=== PATIENT | female | born 1960 | race Caucasian/White ===

== ENCOUNTER 2016-11-05 19:29 | Emergency (ER) | payer OTHER ==
[~2016-11-05] VITALS: Ht 162.5 cm; Wt 83.9 kg
[~2016-11-05 19:29] MED LIST: ADVIL,MOTRIN,R200 MG PO; ANAPROX DS550 MG PO; ASPIR 8181 MG PO; ASPIR-LOW81 MG PO; ATIVAN2 MG PO; AUGMENTIN 875 M1 TAB PO; BACTRIM DS 8001 TA1 PO; BACTROBAN OINT22 GM PO; BUSPAR5 MG PO; CARBAMAZEPINE400 MG PO; CEPHULAC10 GM/15 M PO; CLONAZEPAM1 M1 PO; COLACE100 MG PO; COUMADIN10 M1 PO; DICLOFENAC SOD100 G1 T; DIFLUCAN150 MG PO; DITROPAN XL15 MG PO; DITROPAN5 MG PO; EFFEXOR XR75 M1 PO; EFFEXOR75 MG PO; FLONASE0.05 MG/AC NS; GEODON80 MG PO; HYDROCODONE BIT1 T11 PO; KEFLEX500 MG PO; KLONOPIN1 MG PO; KLONOPIN2 MG PO; LAMICTAL100 MG PO; LAMICTAL25 MG PO; LIPITOR40 MG PO; MIRALAX17 GM/DOSE PO; MOTRIN800 MG PO; Motrin,Rufen800 MG PO; NICODERM C21 MG/242 TD; NORCO 325 MG-51 TAB PO; OXYBUTYNIN10 MG PO; PANTOPRAZOLE40 M1 PO; PRENATAL1 TA6 PO; PRILOSEC20 MG PO; SEPTRA DS 800 M1 TAB PO; SYNTHROID0.025 MG PO; TEGRETOL PO; TEGRETOL-XR400 MG PO; TEGRETOL100 MG PO; TEGRETOL200 MG PO; TRAMADOL HCL50 MG PO; ULTRAM50 MG PO; VICODIN 5/500 505 MG PO; VISTARIL50 MG PO; VITAMIN B121000 MC2 PO; VITAMIN B1225 MCG PO; VOLTAREN50 M1 PO; Vicodin 5/500 505 MG PO; ZANTAC150 MG PO; ZOFRAN4 MG PO
[2016-11-05 21:05] LABS: BASO % 0.5 % (0.0-1.0); EOS # 0.2 10*3/uL (0.0-0.4); EOS % 3.3 % (1.0-4.0); HEMATOCRIT 45.7 % (37.0-47.0); HEMOGLOBIN 15.5 g/dl (12.0-16.0); LYMPH # 1.8 10*3/uL (1.3-4.4); LYMPH % 31.4 % (27.0-41.0); MEAN CELL VOLUME 91.4 fl (81.0-99.0); MEAN CORPUSCULAR HGB CONC 33.9 g/dl (33.0-37.0); MEAN PLATELET VOLUME 8.2 fl (9.6-12.3); MONO # 0.8 10*3/uL (0.1-1.0); MONO % 13.4 % (3.0-9.0); NEUT # 2.9 10*3/uL (2.3-7.9); NEUT % 51.1 % (47.0-73.0); PLATELET COUNT AUTOMATED 367 10*3/uL (130-400); RED CELL DISTRI WIDTH 14.3 % (0-14.5); WHITE BLOOD COUNT 5.7 10*3/uL (4.8-10.8)
[2016-11-05 21:21] LABS: ALBUMIN 3.3 gm/dl (3.1-4.5); ALKALINE PHOSPHATASE 102 U/L (45-117); BILIRUBIN, TOTAL 0.2 mg/dl (0.2-1.0); BUN 13 mg/dl (7-24); CARBON DIOXIDE 29 mmol/L (21-32); CHLORIDE 105 mmol/L (98-107); EST GLOM FILT AFRICAN AMERICAN > 60 ml/min; GLUCOSE 90 mg/dL (65-99); POTASSIUM 3.9 mmol/L (3.5-5.1); SGOT/AST 16 IU/L (3-35); SGPT/ALT 16 U/L (12-78); SODIUM 143 mmol/L (136-145); TOTAL PROTEIN 6.5 gm/dL (6.4-8.2)
[2016-11-05] MEDS ORDERED: CEPHALEXIN500 M1 PO (21:33)
[2016-11-05] MEDS ORDERED: BACITRACIN500 U/G1 TP (21:33)
== END 2016-11-05 22:54 | disposition home or self-care (01) ==
LOC: ED 19:29
PROVIDERS: Nurse Practitioner Family
DX: Z48.01 Encounter for change or removal of surgical wound dressing (principal); M19.90 Unspecified osteoarthritis, unspecified site; F41.9 Anxiety disorder, unspecified; F17.200 Nicotine dependence, unspecified, uncomplicated; Z79.899 Other long term (current) drug therapy; Z86.73 Personal history of transient ischemic attack (TIA), and cerebral infarction without residual deficits

== ENCOUNTER 2016-12-30 10:36 | Emergency (ER) | payer OTHER ==
[~2016-12-30] VITALS: Ht 162.5 cm; Wt 83.9 kg
[~2016-12-30 10:36] MED LIST changes: +BACITRACIN500 U/G1 TP; +CEPHALEXIN500 M1 PO
[2016-12-30] MEDS ORDERED: Motrin,Rufen800 MG PO (15:02)
== END 2016-12-30 14:41 | disposition home or self-care (01) ==
LOC: ED 10:36
DX: S40.011A Contusion of right shoulder, initial encounter (principal); M25.551 Pain in right hip; M25.571 Pain in right ankle and joints of right foot; F17.200 Nicotine dependence, unspecified, uncomplicated; Z79.899 Other long term (current) drug therapy; W10.8XXA Fall (on) (from) other stairs and steps, initial encounter; Y93.89 Activity, other specified; Y92.811 Bus as the place of occurrence of the external cause; Y99.8 Other external cause status

== ENCOUNTER → 2017-01-19 | Outpatient (CLI) | payer OTHER | END | disposition home or self-care (01) | LOC: RESCLI 02:36 | DX: M17.12 Unilateral primary osteoarthritis, left knee (principal); E03.9 Hypothyroidism, unspecified; F17.200 Nicotine dependence, unspecified, uncomplicated; F32.9 Major depressive disorder, single episode, unspecified; K21.9 Gastro-esophageal reflux disease without esophagitis; F41.9 Anxiety disorder, unspecified; Z86.39 Personal history of other endocrine, nutritional and metabolic disease ==

== ENCOUNTER → 2017-01-26 | Outpatient (CLI) | payer OTHER | END | disposition home or self-care (01) | LOC: RESCLI 04:14 | DX: M17.12 Unilateral primary osteoarthritis, left knee (principal); F17.200 Nicotine dependence, unspecified, uncomplicated; E03.9 Hypothyroidism, unspecified; F33.40 Major depressive disorder, recurrent, in remission, unspecified; E55.9 Vitamin D deficiency, unspecified; F41.9 Anxiety disorder, unspecified; K21.9 Gastro-esophageal reflux disease without esophagitis; Z86.39 Personal history of other endocrine, nutritional and metabolic disease ==

== ENCOUNTER → 2017-02-16 | Outpatient (CLI) | payer OTHER | END | disposition home or self-care (01) | LOC: CANPRECLI → ORTHO 02:45 → RAD 14:16 | DX: M17.12 Unilateral primary osteoarthritis, left knee (principal) ==

== ENCOUNTER → 2017-02-18 | Outpatient (CLI) | payer OTHER | END | disposition home or self-care (01) | LOC: US 02:54 | DX: I65.23 Occlusion and stenosis of bilateral carotid arteries (principal); I10 Essential (primary) hypertension ==

== ENCOUNTER 2017-03-30 13:46 | Emergency (ER) | payer OTHER ==
[~2017-03-30] VITALS: Ht 167.6 cm; Wt 74.8 kg
[2017-03-30 14:07] LABS: BASO # 0.1 10*3/uL (0.0-0.1); BASO % 0.7 % (0.0-1.0); EOS # 0.1 10*3/uL (0.0-0.4); EOS % 1.5 % (1.0-4.0); HEMOGLOBIN 16.4 g/dl (12.0-16.0); LYMPH # 2.6 10*3/uL (1.3-4.4); LYMPH % 29.9 % (27.0-41.0); MEAN CELL VOLUME 90.7 fl (81.0-99.0); MEAN CORPUSCULAR HGB 30.4 pg (27.0-31.0); MEAN CORPUSCULAR HGB CONC 33.5 g/dl (33.0-37.0); MEAN PLATELET VOLUME 8.7 fl (9.6-12.3); MONO # 0.8 10*3/uL (0.1-1.0); NEUT % 58.5 % (47.0-73.0); PLATELET COUNT AUTOMATED 461 10*3/uL (130-400); RED CELL DISTRI WIDTH 13.7 % (0-14.5); WHITE BLOOD COUNT 8.6 10*3/uL (4.8-10.8)
[2017-03-30 14:15] LABS: ACT PARTIAL THROMBO TIME 26.2 SECONDS (20.8-31.5)
[2017-03-30 14:29] LABS: ALBUMIN 3.4 gm/dl (3.1-4.5); ALKALINE PHOSPHATASE 123 U/L (45-117); BUN 6 mg/dl (7-24); CHLORIDE 102 mmol/L (98-107); POTASSIUM 4.4 mmol/L (3.5-5.1); SGOT/AST 20 IU/L (3-35); SGPT/ALT 15 U/L (12-78); SODIUM 136 mmol/L (136-145); TOTAL PROTEIN 7.8 gm/dL (6.4-8.2)
[2017-03-30 14:34] LABS: TROPONIN I < 0.015 ng/ml (<0.045)
== END 2017-03-30 15:34 | disposition left against medical advice (07) ==
LOC: ED 13:46
PROVIDERS: Emergency Medicine
DX: R07.9 Chest pain, unspecified (principal); F41.8 Other specified anxiety disorders; M19.90 Unspecified osteoarthritis, unspecified site; Z86.73 Personal history of transient ischemic attack (TIA), and cerebral infarction without residual deficits; Z98.890 Other specified postprocedural states; Z79.899 Other long term (current) drug therapy

== ENCOUNTER 2017-04-20 11:17 | Inpatient (IN) | payer OTHER ==
[~2017-04-20] VITALS: Ht 162.5 cm; Wt 92.7 kg
--- NOTE | ~2017-04-20 | PR ---
[place], [place] [facility]GR[id number] #: [id number] ROOM: 402 DOCTOR: DARIANA BRICE MD,LEXUS BIRTHDATE: [birth year] DOS: 04/22/2017 PULMONARY PROGRESS NOTE SUBJECTIVE: She has been noted much better today. Reduction of respiratory symptom noted and would like to be discharged home. OBJECTIVE: VITAL SIGNS: For the patient, which have been recorded showed normal temperature, respiratory rate 20, heart rate 77, blood pressure 116/64, pulse ox saturation was noted as 92% on room air. HEENT: Examination showed no acute change. NECK: Supple. CARDIOVASCULAR: S1, S2 is audible. LUNGS: The patient was noted without any wheeze or crackles at the present time. ABDOMEN: Soft and nontender. EXTREMITIES: Show no edema. IMPRESSION: 1. The patient with resolving acute hypoxic respiratory failure with exacerbation of chronic obstructive pulmonary disease, heavy nicotine dependence. Refused to use any kind of inhaler for now and for later on, complaining of anxiety. However, the patient was taking the nebulized bronchodilator without any issues. 2. History of bipolar disorder psychiatric illness. PLAN OF TREATMENT: Recommendation of tobacco cessation. Assessment for the home oxygen before discharge would be considered. The patient could be discharged home today on tapering dose of prednisone and antibiotics. LEXUS WESTBROOK MD CM:PNTRANS [id number] LEXUS BRICE MD 04/28/17 0857 interface
--- NOTE | ~2017-04-20 | CON ---
[place], [place] REPORT OF CONSULTATION NAME: SHAQ GERBER [facility] #: [id number] UNIT #: [id number] ROOM: 402 DOCTOR: LEXUS MITTAL MD BIRTHDATE: [birth year] DOS: 04/21/2017 CONSULTATION REQUESTED BY: Hospitalist services. REASON FOR CONSULTATION: Assess the patient with acute hypoxic respiratory failure. HISTORY OF PRESENT ILLNESS: A 56-year-old white female who has been seen in the resident clinic yesterday. The patient was noted with pulse oxygen saturation of 83% upon assessment. The patient reported symptoms of having progressive cough, which has been noted, gradually worsened. She was advised to go to the Emergency Room. She was assessed in the Emergency Room and asked for hospitalization. The patient was admitted to the hospital at this time, but I would like to be discharged home as soon as possible. The shortness of breath was described with exertion. She was also noted with some wheezing as well. Denies symptoms of chest pain or hemoptysis. Respiratory symptom, cough has been present for the past few days without any sputum expectoration. REVIEW OF SYSTEMS: CONSTITUTIONAL: Denies fatigue and tiredness, fever or chills. EYES: Denies any burning, redness, or tenderness. EARS, NOSE, THROAT SYMPTOMS: No sore throat, hoarseness, otalgia, or postnasal drainage. CARDIOVASCULAR: Denies anginal pain, edema or pain of the lower extremities. GASTROINTESTINAL: Denies dysphagia, nausea, vomiting, diarrhea, abdominal pain, hematemesis, melena, hematochezia, abnormal weight loss. GENITOURINARY: Denies dysuria, suprapubic pain, hematuria. SKIN: Denies lesions or rashes. MUSCULOSKELETAL: Denies acute joint pain, redness, or tenderness. CENTRAL NERVOUS SYSTEM: Denies dizziness, headache, diplopia or syncopal episodes. Remaining systems were reviewed with the patient, they were noted all negative. PAST MEDICAL HISTORY: 1. History of agoraphobia with panic attacks. 2. Bipolar depression. 3. Bipolar disorder. 4. Anxiety disorder. 5. Obesity. 6. Nicotine dependence. 7. Gastroesophageal reflux. 8. Hyperlipidemia. 9. Neurogenic bladder. 10. Osteoarthritis. 11. Passive transient ischemic attack without any residual neurologic problem. 12. Vitamin D deficiency. 13. History of hypothyroidism. PAST SURGICAL HISTORY: [place], [place] REPORT OF CONSULTATION NAME: SHAQ GERBER UNIT #: [id number] ROOM: 402 DOCTOR: DARIANA BRICE MD,LEXUS BIRTHDATE: [birth year] 1. Reported as ventral hernia repair. 2. Cholecystectomy. 3. Small bowel resection. SOCIAL HISTORY: The patient has been noted as tobacco user, 2 packs of cigarettes per day. Lives at home. The patient stated that she is . FAMILY HISTORY: The patient's father from complication related to the CA. Mother is living, history of breast cancer. HOME MEDICATIONS: Noted use of BuSpar, Tegretol, Klonopin, vitamin B12, Flonase, hydroxyzine, Lamictal, levothyroxine, Effexor and Oxybutynin. DRUG ALLERGIES: Noted for no known drug allergies. PHYSICAL EXAMINATION: GENERAL: This is a 56-year-old female who has been noted currently awake and alert without any acute distress at this time. VITAL SIGNS: The patient's height was recorded by the nursing staff at the time of admission with height of 5 feet 4 inches, weight of 204 pounds, BMI 35.1. VITAL SIGNS: Normal temperature, respiratory rate 18-20, heart rate 76-71, blood pressure 117/62-114/68. Pulse oxygen saturation noted on 2 liters nasal cannula 93% saturation. HEENT: Edentulous status, moderate obesity. Head was atraumatic with decreased posterior pharyngeal space, high tongue base and crowding of soft tissue structures. NECK: Supple. CARDIOVASCULAR: S1, S2 audible. LUNGS: Noted diffuse reduction in breath sounds bilaterally with diffuse expiratory wheezing without any crackles. ABDOMEN: Soft, obese, nontender. CENTRAL NERVOUS SYSTEM: Cranial nerves 2-12 intact. No focal deficits. MUSCULOSKELETAL: No deformities. SKIN: No lesions or rashes. LABORATORY DATA: CBC 04/20/2017 admission, WBC count 12.9. Remaining CBC were normal. CMP on 06/20, was noted as a sodium 133, rest of the CMP was normal. Lactic acid yesterday was normal. Arterial blood gas 3.5 liters nasal cannula, pH of 7.38, pCO2 of 47, pO2 of 66.7. CBC of 04/21 were noted as normal. PT/PTT today was normal. CMP this morning, glucose 141. Remaining electrolytes are grossly normal. Chest x-ray, 2-view, which was done for the patient on admission was noted with bronchial wall thickening without any acute pulmonary infiltration. IMPRESSION: 1. The patient will be currently admitted to the hospital noted with acute exacerbation of chronic obstructive pulmonary disease and bronchial asthma combination with acute bronchitis, which has been noted progressive. The patient was also noted acute hypoxic respiratory failure secondary to chronic obstructive pulmonary disease. [place], [place] REPORT OF CONSULTATION NAME: SHAQ GERBER UNIT #: [id number] ROOM: [facility] DOCTOR: DARIANA BRICE MD,LEXUS BIRTHDATE: [birth year] 2. Chronic heavy nicotine dependence. 3. Moderate obesity as well. 4. Chronic hypercarbia was also noted for this patient undiagnosed previously. PLAN OF MANAGEMENT: The patient has been getting the bronchodilators which will be continued form of the nebulizer. Her home medications have been resumed. DVT prophylaxis has been noted ongoing. She was getting Solu-Medrol at high dose 80 mg q.8 hours, which will be decreased for the patient at this time to 40 mg q.8 hours. Monitor respiratory status closely. Collect the sputum for Gram stain and culture and start the patient on Dulera as well. Nicotine abstinence was also encouraged. Other supportive therapy, plan of management and care plan. Additional treatment changes will be made based on progression of the illness. Thanks for allowing me to participate in the care of this patient. LEXUS WESTBROOK MD CM:CONSTR:REPORT OF CONSULTATION 1048 04/28/17 0856 interface
[2017-04-20 11:26] VITALS: BP 152/86
[2017-04-20 12:00] VITALS: BP 112/67
[2017-04-20 12:17] LABS: BASO # 0.1 10*3/uL (0.0-0.1); BASO % 0.4 % (0.0-1.0); EOS # 0.1 10*3/uL (0.0-0.4); EOS % 0.4 % (1.0-4.0); HEMATOCRIT 45.1 % (37.0-47.0); HEMOGLOBIN 15.1 g/dl (12.0-16.0); LYMPH # 1.8 10*3/uL (1.3-4.4); MEAN CELL VOLUME 90.9 fl (81.0-99.0); MEAN CORPUSCULAR HGB 30.4 pg (27.0-31.0); MEAN CORPUSCULAR HGB CONC 33.5 g/dl (33.0-37.0); MEAN PLATELET VOLUME 8.5 fl (9.6-12.3); MONO % 7.5 % (3.0-9.0); NEUT % 77.2 % (47.0-73.0); PLATELET COUNT AUTOMATED 354 10*3/uL (130-400); RED BLOOD COUNT 4.96 10*6/uL (4.10-5.10); RED CELL DISTRI WIDTH 13.7 % (0-14.5); WHITE BLOOD COUNT 12.9 10*3/uL (4.8-10.8)
[2017-04-20 12:31] LABS: ALBUMIN 3.1 gm/dl (3.1-4.5); ALKALINE PHOSPHATASE 113 U/L (45-117); BUN 5 mg/dl (7-24); CHLORIDE 96 mmol/L (98-107); CREATININE 0.62 mg/dL (0.55-1.02); POTASSIUM 4.2 mmol/L (3.5-5.1); SGOT/AST 14 IU/L (3-35); SGPT/ALT 12 U/L (12-78); SODIUM 133 mmol/L (136-145); TOTAL PROTEIN 7.9 gm/dL (6.4-8.2)
--- NOTE | 2017-04-20 12:51 | NUR ---
PULSE OX 78% ON ROOM AIR AFTER WALKING TO THE BATHROOM. NASAL O2 REAPPLIED AT 3L. 93% AT THIS TIME. PT REMAINS ALERT. HANANE CADET
[2017-04-20 13:10] VITALS: BP 112/67; BP 112/68
[2017-04-20 14:11] VITALS: BP 114/65
[2017-04-20 15:53] LABS: ABG BASE EXCESS 2.6 mmol/L (-2.0-2.0); ABG HCO3 27.8 mmol/l (22-26); ABG O2 SATURATION 94.3 % (95-97); ARTERIAL BLOOD GAS PCO2 47.2 mmHg (35-45); ARTERIAL BLOOD GAS PH 7.388 (7.35-7.45); ARTERIAL BLOOD GAS PO2 66.7 mmHg (80-90)
--- NOTE | 2017-04-20 15:59 | NUR ---
NOTIFIED DR. WESTBROOK OF CONSULT. HE WAS MADE AWARE OF PT'S CONDITION, AND RECENT CHANGES. WILL CONINUE TO MONITOR PT.
--- NOTE | 2017-04-20 18:35 | NUR ---
DR. GUTIERRES CALLED ABOUT PT'S WOUND ON BELLY. ORDERS NOW ARE TO PUT A STERILE DRESSING, AND TAPE IT UP. FURTHER CONCERNS SHOULD BE ADDRESSED BY THE NIGHT TEAM ORDERED BY DR. GUTIERRES.
--- NOTE | 2017-04-20 19:53 | NUR ---
FAMILY REFUSED TX. ASKED TO LET PATIENT SLEEP FOR NOW. WILL CHECK BACK ON HER.
[2017-04-20 20:00] VITALS: BP 110/59; BP 114/68
--- NOTE | 2017-04-20 22:16 | NUR ---
24 HR chart check completed.
[2017-04-21] VITALS: BP 109/65
[2017-04-21 02:00] VITALS: BP 110/70
[2017-04-21 03:41] LABS: BILIRUBIN NEGATIVE (NEGATIVE); BLOOD NEGATIVE (NEGATIVE); CLARITY CLEAR (CLEAR); COLOR YELLOW (YELLOW); GLUCOSE NEGATIVE (NEGATIVE); KETONE NEGATIVE (NEGATIVE); LEUKO ESTERASE NEGATIVE (NEGATIVE); NITRITE NEGATIVE (NEGATIVE); PH 6.5 (5.0-9.0); UROBILINOGEN 0.2 E.U./dl (0.2-1.0)
[2017-04-21 03:52] LABS: RBC 0-2 rbc/hpf (0-2)
[2017-04-21 05:56] LABS: BASO % 0.1 % (0.0-1.0); HEMATOCRIT 40.3 % (37.0-47.0); HEMOGLOBIN 13.5 g/dl (12.0-16.0); LYMPH # 0.8 10*3/uL (1.3-4.4); LYMPH % 9.1 % (27.0-41.0); MEAN CELL VOLUME 92.4 fl (81.0-99.0); MEAN CORPUSCULAR HGB CONC 33.5 g/dl (33.0-37.0); MEAN PLATELET VOLUME 8.9 fl (9.6-12.3); MONO # 0.4 10*3/uL (0.1-1.0); MONO % 4.5 % (3.0-9.0); NEUT # 7.4 10*3/uL (2.3-7.9); NEUT % 85.8 % (47.0-73.0); PLATELET COUNT AUTOMATED 374 10*3/uL (130-400); RED BLOOD COUNT 4.36 10*6/uL (4.10-5.10); RED CELL DISTRI WIDTH 13.6 % (0-14.5); WHITE BLOOD COUNT 8.6 10*3/uL (4.8-10.8)
[2017-04-21 06:19] LABS: ACT PARTIAL THROMBO TIME 25.9 SECONDS (20.8-31.5)
[2017-04-21 06:24] LABS: ALBUMIN 2.7 gm/dl (3.1-4.5); BUN 7 mg/dl (7-24); CHLORIDE 103 mmol/L (98-107); CREATININE 0.59 mg/dL (0.55-1.02); PHOSPHOROUS 2.4 mg/dL (2.5-4.9); POTASSIUM 3.6 mmol/L (3.5-5.1); SGOT/AST 10 IU/L (3-35); SGPT/ALT 12 U/L (12-78); SODIUM 140 mmol/L (136-145)
[2017-04-21 06:33] LABS: ALKALINE PHOSPHATASE 106 U/L (45-117); FREE T4 0.89 ng/dl (0.76-1.46); THYROID STIM HORMONE (HS) 0.632 uIU/ml (0.358-4.75)
[2017-04-21 06:41] LABS: VITAMIN D, 25-HYDROXY 36.1 ng/mL (30-100)
[2017-04-21 08:00] VITALS: BP 117/62
--- NOTE | 2017-04-21 09:00 | NUR ---
Regional Education Coordinator in to talk to patient. Patient states lives at home with boyfriend. There are few steps in the home. Physician: lynn fam Pharmacy: [facility] Home health services: none Patient's level of ADLs: INDEPENDENT Patient has working utilities: all working DME: none Follow-up physician's appointment after d/c: will be made by hospitalist nurse director upon discharge Does patient want to access PORTAL?: no Discharge plan discussed with patient, patient lives at home with boyfriend, she is independent in adls and ambulatuon, patient stated she would be going home when able and denies any home needs. ANNA FARR
[2017-04-21 12:00] VITALS: BP 122/67
--- NOTE | 2017-04-21 14:04 | NUR ---
SHAQ GERBER [id number] Please refer to the physician's history and physical for past medical history, comorbid conditions, and allergies. Diagnosis: ACUTE RESPITATORY FAILURE,SEVERE SEPSIS,PNEUMONITI Ken Score: 21,LOW OR NO RISK WOUND DESCRIPTIONS: Location of the wound: LLQ Type of wound: BURN Thickness: Partial Size: 1.2CM X 1.0CM X 0.1CM Tunneling: NONE Undermining: NONE Sinus Tract: NONE Presence of Exudate: Purulent Amount: Light Color: Yellow Odor: None Periwound Skin Appearance: Normal Wound edges: APPROXIMATED Pain (associated with wound): NONE AT TIME OF ASSESSMENT How does patient state this happened? PT STATED THAT IT WAS AN ABSESS AND THEN THERE WAS SCAR TISSUE SHE BURNT THE AREA FROM A CIGARETTE 2-3 YEARS AGO AND IT KEEPS OPENING AND CLOSING BECAUSE OF WHERE IT IS POSITION HER PANTS RUB AGAINST IT SHE STATED THAT SHE WANTED TO FOLLOW UP IN THE WOUND CARE CENTER WHEN DISCHARGE AND THAT TUESDAY WERE GOOD FOR HER. I SPOKE WITH SAMUEL FROM THE WOUND CARE CENTER AND SCHEDULED HER AN APPOINTMENT FOR Tuesday AT 0930. THIS NURSE INFORMED PATIENT ABOUT THE TIME OF THE APPOINTMENT. Surface the patient is resting on: Isoflex SKIN PREVENTION RECOMMENDATION: 1. Pressure redistribution support surface as appropriate 2. Elevate heels 3. Remove boots/TEDS every shift and reapply 4. Head of bed 30 degrees as tolerated 5. Assess nutrition and hydration 6. Manage moisture 7. Avoid the use of containment devices while in bed 8. Use absorptive products on surfaces limit layers of linens on bed 9. Turn and reposition every 1-2 hours in bed and every 1 hour in chair as tolerated 10. Weight shifts every 15 minutes while up in chair 11. Offloading with pillows or device to keep heels elevated off bed 12. Monitor skin at least every shift 13. Inspect under medical devices twice a day WOUND TREATMENT RECOMMENDATIONS: PARTIAL THICKNESS GUIDELINES NSS, SUREPREP, THERAHONEY, OPTIFOAM GENTLE DAILY AND PRN FOR SOILING. SPOKE WITH DR. BLEDSOE REGARDING WOUND CARE RECOMMENDATION.
[2017-04-21 16:00] VITALS: BP 141/83
[2017-04-21 20:00] VITALS: BP 136/82
--- NOTE | 2017-04-21 20:00 | NUR ---
ASSUMED CARE OF PATIENT. ASSESSMENT COMPLETE. RESTING IN BED. VISITOR AT BEDSIDE. NO VOICED COMPLAINTS. CALL LIGHT IN REACH. WILL CONTINUE TO MONITOR.
--- NOTE | 2017-04-21 21:31 | NUR ---
SPUTUM COLLECTED AND SENT TO LAB.
[2017-04-22] VITALS: BP 118/67; BP 148/84
[2017-04-22 06:46] LABS: BASO % 0.3 % (0.0-1.0); HEMOGLOBIN 13.5 g/dl (12.0-16.0); LYMPH # 2.1 10*3/uL (1.3-4.4); LYMPH % 22.7 % (27.0-41.0); MEAN CELL VOLUME 92.3 fl (81.0-99.0); MEAN CORPUSCULAR HGB 30.4 pg (27.0-31.0); MEAN CORPUSCULAR HGB CONC 32.9 g/dl (33.0-37.0); MEAN PLATELET VOLUME 8.8 fl (9.6-12.3); MONO # 0.7 10*3/uL (0.1-1.0); MONO % 7.6 % (3.0-9.0); NEUT # 6.4 10*3/uL (2.3-7.9); NEUT % 68.5 % (47.0-73.0); PLATELET COUNT AUTOMATED 442 10*3/uL (130-400); RED BLOOD COUNT 4.44 10*6/uL (4.10-5.10); RED CELL DISTRI WIDTH 13.7 % (0-14.5); WHITE BLOOD COUNT 9.4 10*3/uL (4.8-10.8)
[2017-04-22 06:55] LABS: ALBUMIN 2.7 gm/dl (3.1-4.5); BUN 10 mg/dl (7-24); CHLORIDE 100 mmol/L (98-107); SGPT/ALT 13 U/L (12-78); SODIUM 137 mmol/L (136-145)
[2017-04-22 06:58] LABS: ALKALINE PHOSPHATASE 100 U/L (45-117); CREATININE 0.55 mg/dL (0.55-1.02); SGOT/AST 8 IU/L (3-35); TOTAL PROTEIN 7.3 gm/dL (6.4-8.2)
[2017-04-22 08:00] VITALS: BP 116/64
--- NOTE | 2017-04-22 09:00 | NUR ---
case management visits with patient, patient denies any home needs
[2017-04-22] MEDS ORDERED: NATURE'S BLEND F1 MG PO (11:57)
[2017-04-22] MEDS ORDERED: PREDNISONE10 MG PO (11:57)
[2017-04-22] MEDS ORDERED: LEVAQUIN500 M2 PO (11:57)
[2017-04-22 12:00] VITALS: BP 112/68
--- NOTE | 2017-04-22 12:23 | NUR ---
PT REFUSED HOME OXYGEN EVALUATION ORDERED BY DR. WESTBROOK. DR. WESTBROOK NOTIFIED. PT ADAMANT THAT SHE DAY NOT NEED OXYGEN AT HOME.
--- NOTE | 2017-04-22 12:25 | NUR ---
pt had order for home oxygen. she refused to do the walk. she stated that she never had it before and she does not want it now. rn notified
--- NOTE | 2017-04-22 13:04 | NUR ---
PT REFUSING DISCHARGE PHOTO.
--- NOTE | 2017-04-22 13:05 | NUR ---
Discharge instructions reviewed with patient/family. Patient receptive and verbalizes understanding. Follow-up care arranged. Written instructions given to patient/family. MARGARITA OSMAN
[2017-04-27] MEDS ORDERED: PROAIR HFA8.5 GM INH (09:28)
== END 2017-04-22 13:05 | disposition home or self-care (01) | DRG 871 ==
LOC: ED 11:17 → EDHOLD 13:30 → 4E 13:30
PROVIDERS: Emergency Medicine; Internal Medicine; Nurse Practitioner; ADMIT Internal Medicine
DX: A41.9 Sepsis, unspecified organism (principal); J18.9 Pneumonia, unspecified organism; J96.01 Acute respiratory failure with hypoxia; J96.02 Acute respiratory failure with hypercapnia; J44.1 Chronic obstructive pulmonary disease with (acute) exacerbation; J44.0 Chronic obstructive pulmonary disease with (acute) lower respiratory infection; E87.1 Hypo-osmolality and hyponatremia; R65.20 Severe sepsis without septic shock; E87.8 Other disorders of electrolyte and fluid balance, not elsewhere classified; E66.9 Obesity, unspecified; E03.9 Hypothyroidism, unspecified; J20.9 Acute bronchitis, unspecified; R73.9 Hyperglycemia, unspecified; M47.815 Spondylosis without myelopathy or radiculopathy, thoracolumbar region; N31.9 Neuromuscular dysfunction of bladder, unspecified; F17.210 Nicotine dependence, cigarettes, uncomplicated; E78.5 Hyperlipidemia, unspecified; F31.9 Bipolar disorder, unspecified; F40.01 Agoraphobia with panic disorder; Z53.29 Procedure and treatment not carried out because of patient's decision for other reasons; K21.9 Gastro-esophageal reflux disease without esophagitis; Z80.9 Family history of malignant neoplasm, unspecified; Z71.6 Tobacco abuse counseling; Z86.73 Personal history of transient ischemic attack (TIA), and cerebral infarction without residual deficits; Z90.49 Acquired absence of other specified parts of digestive tract; Z82.49 Family history of ischemic heart disease and other diseases of the circulatory system; Z79.899 Other long term (current) drug therapy; Z80.3 Family history of malignant neoplasm of breast; Z68.35 Body mass index [BMI] 35.0-35.9, adult

== ENCOUNTER 2017-04-23 03:46 | Inpatient (IN) | payer OTHER ==
[2017-04-23] VITALS (9 sets, daily range): BP systolic 92–147; BP diastolic 58–85
[~2017-04-23] VITALS: Ht 162.5 cm; Wt 93.7 kg
--- NOTE | ~2017-04-23 | EKG ---
[place], [place] ELECTROCARDIOGRAM REPORT NAME: SHAQ GERBER UNIT #: [id number] ROOM: 510 DOCTOR: DARIANA BRICE MD,LEXUS BIRTHDATE: [birth year] DOS: 04/23/2017 TIME: 4:12 a.m. The electrocardiogram, patient shows normal sinus rhythm, heart rate of 88 beats per minute. Nonspecific ST-T changes were noted. LEXUS WESTBROOK MD CM:EKGRPT:ELECTROCARDIOGRAM REPORT 1118 [id number] LEXUS BRICE MD
--- NOTE | ~2017-04-23 | PR ---
[place], [place] PROGRESS NOTE [id number] #: [id number] ROOM: 510 DOCTOR: DARIANA BRICE MD,LEXUS BIRTHDATE: [birth year] DOS: 04/26/2017 SUBJECTIVE: She has been noted comfortable with reduction of respiratory symptoms. Noted resolution in nasal congestion, which were described by the patient yesterday. OBJECTIVE: VITAL SIGNS: Normal temperature, respiratory rate 18, heart rate 79, blood pressure 148/86. The pulse oxygen saturation on 2 liters nasal cannula 99% saturation. HEENT: Shows chronic obesity. NECK: Supple. CARDIOVASCULAR: S1, S2 audible. LUNGS: The patient was noted without any wheezing or crackles at the present time. Breath sounds noted mildly decreased bilaterally. ABDOMEN: Soft, nontender. IMPRESSION: Progressive resolution of acute exacerbation of chronic obstructive pulmonary disease, acute hypoxic respiratory failure at the present time. PLAN OF TREATMENT: The patient could be considered discharge home on tapering dose of prednisone or antibiotic, Nicotrol inhaler for patient ____ tobacco cessation. She should also be discharged on short-acting bronchodilators and medications such as Dulera. LEXUS WESTBROOK MD CM:HARRISON [id number] LEXUS BRICE MD 04/26/17 1448 interface
--- NOTE | ~2017-04-23 | PR ---
[place], [place] PROGRESS NOTE [id number] #: [id number] ROOM: 510 DOCTOR: DARIANA BRICE MD,LEXUS BIRTHDATE: [birth year] DOS: 04/24/2017 SUBJECTIVE: She has been comfortably resting on the bed. Partial reduction of respiratory symptoms of cough, wheezing, and shortness of breath noted. Denies symptoms of hemoptysis. OBJECTIVE: VITAL SIGNS: Normal temperature, respiratory rate 20, heart rate 82, blood pressure 154/84. Pulse oxygen saturation on 2.5 L nasal cannula 95% saturation. HEENT: Examination shows no new change. NECK: Supple. CARDIOVASCULAR: S1, S2 audible. LUNGS: Moderate expiratory wheezing, remains the same as yesterday. ABDOMEN: Soft and obese. EXTREMITIES: Showed no edema. LABORATORY DATA: Culture of the sputum from 04/21/2017 of last admission was noted as no bacterial growth. CBC this morning, normal. BMP this morning was essentially noted normal. IMPRESSION: 1. Acute exacerbation of chronic obstructive pulmonary disease/bronchial asthma and acute tracheobronchitis, currently responding to treatment very slowly. 2. Chronic obesity. 3. History of nicotine dependence. PLAN OF TREATMENT: Continuation of the bronchodilators, oxygen supplementation, and corticosteroids at same dose. No change in treatment at this time will be necessary. Continue other medical management. Nicotrol inhaler to overcome nicotine withdrawal symptoms, p.r.n. use. LEXUS WESTBROOK MD CM:PNTRANS [id number] LEXUS BRICE MD 04/25/17 0514 interface
--- NOTE | ~2017-04-23 | CON ---
[place], [place] REPORT OF CONSULTATION NAME: SHAQ GERBER [facility] #: [id number] UNIT #: [id number] ROOM: 510 DOCTOR: LEXUS MITTAL MD BIRTHDATE: [birth year] DOS: 04/23/2017 PULMONARY CONSULTATION Consultation requested by the hospitalist service for assessment of COPD. HISTORY OF PRESENT ILLNESS: This is a 56-year-old white female who has been admitted to this hospital on 04/20/2017 and discharged on 04/22 at the patient ____ on being discharged, but also showing improvement in the respiratory symptom. She was asked for home oxygen assessment, but she absolutely refused and was adamant, not to be assessed for oxygen, she went home. She has been known with history of heavy tobacco use. The patient started smoking cigarettes, resulting in increased shortness of breath with wheezing and nonproductive cough resulted in reassessment back in the Emergency Room. The patient was admitted to the hospital for the exacerbation of COPD. She was given Levaquin and tapering prednisone upon discharge. The cough has been described moderately without any sputum expectoration. Denies symptoms of chest pain. Shortness of breath was occurring with [id number] exertion. Shortness of breath worsened significantly as the patient started smoking cigarettes. She was also noted with wheezing. REVIEW OF SYSTEMS: CONSTITUTIONAL: Denies any fatigue or chills or fever. EYES: Denies any burning, redness, or tenderness. EARS, NOSE, THROAT: No sore throat, hoarseness, otalgia, postnasal drainage. CARDIOVASCULAR: Denies anginal pain, edema, pain of lower extremities. GASTROINTESTINAL: Denies dysphagia, nausea, vomiting, diarrhea, abdominal pain, hematemesis, melena, or hematochezia. SKIN: Denies any lesions or rashes. GENITOURINARY: Denies dysuria, suprapubic pain, hematuria. CENTRAL NERVOUS SYSTEM: Denies diplopia, syncopal episodes or seizures. Remaining systems were reviewed and they were noted all negative. PAST MEDICAL HISTORY, SURGICAL HISTORY, SOCIAL HISTORY, AND FAMILY HISTORY: The patient were all reviewed with the patient and they were noted the same. Since her last hospitalization, the patient had consultation on 04/20/2017. In addition to that also ____ suspected diagnosis of COPD or bronchial asthma combination of both for the patient, which has not been already likely; however, the patient has not had any ____ PFTs or others. MEDICATIONS: The current administered medication was noted as use of IV Solu-Medrol, Mucinex, Lovenox for DVT prophylaxis, oral Protonix, Nicotrol inhaler, Rocephin, Restoril, Zithromax, and other p.r.n. medications. DRUG ALLERGIES: The patient noted as no known drug allergies. PHYSICAL EXAMINATION: GENERAL: A 56-year-old female who has been currently noted to be awake and alert without any distress. Height of 5 feet 4 inches, weight of 206 pounds, BMI 35.4. The patient continued stating she did the stupid thing, the patient [place], [place] REPORT OF CONSULTATION NAME: SHAQ GERBER UNIT #: [id number] ROOM: [facility] DOCTOR: DEVYN MITTAL MDM BIRTHDATE: [birth year] continued to smoke cigarettes, requiring rehospitalization and should have followed instruction for the oxygen and tobacco cessation. VITAL SIGNS: For the patient, which has been recorded showed normal temperature, respiratory rate 18-28, heart rate of 95-105, blood pressure 110/60 to 134/84. Pulse oxygen saturation on 2 liters nasal cannula 98% saturation. HEENT: Edentulous status. Head was atraumatic. Eyes nonicterus. Decreased posterior pharyngeal space, high tongue base and crowding of soft tissue structures. LUNGS: Generalized reduction of breath sounds, moderate expiratory wheezing, no crackles. CARDIOVASCULAR: S1, S2 audible. No added sounds. SKIN: No lesions or rashes. MUSCULOSKELETAL: No gross deformities. CENTRAL NERVOUS SYSTEM: Cranial nerves 2-12 intact. LABORATORY DATA: CBC that was done this morning was noted as platelet count 451. Remaining CBC was normal. Lactic acid of the patient this morning was 2.9. CMP this morning was noted as normal BUN and creatinine. Electrolytes as well as the LFTs were essentially noted normal. Chest x-ray, 1-view, on 04/23/2017 does not show any acute infiltration. IMPRESSION: 1. The patient who has been currently admitted to the hospital because of the failure to follow instruction with chronic heavy nicotine abuse up to 2 packs of cigarettes. 2. Exacerbation of chronic obstructive pulmonary disease. The patient with acute tracheobronchitis. 3. The patient who has been recently admitted to the hospital with acute hypoxic respiratory failure. Refusal of certain treatment including oxygen and use the appropriate medication in the form of inhalers were well documented previously. 4. History of psychiatric illness of the patient which has been known previously. 5. Obesity. PLAN OF MANAGEMENT: Agree with use of the current dose of corticosteroids, bronchodilators, antibiotics, and Mucinex. The patient has been ordered Nicotrol inhaler for patient to have tobacco cessation. She was encouraged about tobacco cessation and the use of the appropriate respiratory medication needed for the long-term management of her pulmonary condition. Other supportive therapy, plan of management care as part of care and plan of treatment. Thank you for allowing me to participate in the care of this patient. [place], [place] REPORT OF CONSULTATION NAME: SHAQ GERBER UNIT #: [id number] ROOM: [facility] DOCTOR: LEXUS MITTAL MD BIRTHDATE: [birth year] LEXUS WESTBROOK MD CM:CONSTR:REPORT OF CONSULTATION 1124 04/23/17 2006 interface
--- NOTE | ~2017-04-23 | PR ---
[place], [place] PROGRESS NOTE [id number] #: [id number] ROOM: 510 DOCTOR: DARIANA BRICE MD,LEXUS BIRTHDATE: [birth year] DOS: 04/25/2017 SUBJECTIVE: She was complaining of some nasal congestion, sore throat, but the respiratory symptoms otherwise noted to be improving. Coughing, wheezing and shortness of breath has been resolving. There were no symptoms of chest pain or hemoptysis. OBJECTIVE: VITAL SIGNS: Normal temperature, respiratory rate 18, heart rate of 84, blood pressure 136/73. Pulse oxygen saturation recorded on 2 L nasal cannula 95% saturation. HEENT: Chronic obesity. NECK: Supple. CARDIOVASCULAR: S1, S2 audible. LUNGS: Noted with mild expiratory wheezing in the lungs bilaterally. There were no crackles. ABDOMEN: Soft, nontender. IMPRESSION: 1. Resolving acute exacerbation of chronic obstructive pulmonary disease with acute tracheobronchitis gradually. 2. Upper respiratory tract symptoms of congestion and mild sore throat. PLAN OF TREATMENT: Reduce the Solu-Medrol dose at this time to the lower dose of 40 mg b.i.d., monitoring the respiratory status closely. Continue oxygen supplementation for the acute hypoxic respiratory failure management. Addition of treatment changes need to be made based on progression of this illness. Symptomatic management of upper airway symptoms could be done. LEXUS WESTBROOK MD CM:PNNARINDER [phone] LEXUS BRICE MD 04/25/172241 interface
[~2017-04-23 03:46] MED LIST changes: +LEVAQUIN500 M2 PO; +NATURE'S BLEND F1 MG PO; +PREDNISONE10 MG PO
[2017-04-23 04:17] LABS: BASO % 0.3 % (0.0-1.0); HEMOGLOBIN 14.3 g/dl (12.0-16.0); LYMPH # 0.8 10*3/uL (1.3-4.4); LYMPH % 11.3 % (27.0-41.0); MEAN CELL VOLUME 91.7 fl (81.0-99.0); MEAN CORPUSCULAR HGB 30.5 pg (27.0-31.0); MEAN CORPUSCULAR HGB CONC 33.3 g/dl (33.0-37.0); MEAN PLATELET VOLUME 8.3 fl (9.6-12.3); MONO # 0.5 10*3/uL (0.1-1.0); MONO % 6.4 % (3.0-9.0); NEUT # 5.9 10*3/uL (2.3-7.9); NEUT % 80.4 % (47.0-73.0); PLATELET COUNT AUTOMATED 451 10*3/uL (130-400); RED BLOOD COUNT 4.69 10*6/uL (4.10-5.10); RED CELL DISTRI WIDTH 13.9 % (0-14.5); WHITE BLOOD COUNT 7.3 10*3/uL (4.8-10.8)
[2017-04-23 04:38] LABS: ALBUMIN 2.8 gm/dl (3.1-4.5); ALKALINE PHOSPHATASE 117 U/L (45-117); BUN 9 mg/dl (7-24); CHLORIDE 101 mmol/L (98-107); CREATININE 0.86 mg/dL (0.55-1.02); POTASSIUM 4.1 mmol/L (3.5-5.1); SGOT/AST 26 IU/L (3-35); SGPT/ALT 20 U/L (12-78); SODIUM 139 mmol/L (136-145); TOTAL PROTEIN 7.6 gm/dL (6.4-8.2)
[2017-04-23 04:43] LABS: TROPONIN I < 0.015 ng/ml (<0.045)
[2017-04-24] VITALS: BP 119/68
[2017-04-24 06:25] LABS: BASO % 0.3 % (0.0-1.0); HEMOGLOBIN 13.9 g/dl (12.0-16.0); LYMPH # 2.1 10*3/uL (1.3-4.4); LYMPH % 20.7 % (27.0-41.0); MEAN CELL VOLUME 92.3 fl (81.0-99.0); MEAN CORPUSCULAR HGB 29.8 pg (27.0-31.0); MEAN CORPUSCULAR HGB CONC 32.3 g/dl (33.0-37.0); MEAN PLATELET VOLUME 8.7 fl (9.6-12.3); MONO # 0.6 10*3/uL (0.1-1.0); MONO % 5.7 % (3.0-9.0); NEUT # 7.3 10*3/uL (2.3-7.9); NEUT % 70.8 % (47.0-73.0); PLATELET COUNT AUTOMATED 511 10*3/uL (130-400); RED BLOOD COUNT 4.66 10*6/uL (4.10-5.10); RED CELL DISTRI WIDTH 13.9 % (0-14.5); WHITE BLOOD COUNT 10.4 10*3/uL (4.8-10.8)
[2017-04-24 07:01] LABS: BUN 10 mg/dl (7-24); CHLORIDE 100 mmol/L (98-107); CREATININE 0.54 mg/dL (0.55-1.02); POTASSIUM 3.7 mmol/L (3.5-5.1); SODIUM 139 mmol/L (136-145)
[2017-04-24 08:00] VITALS: BP 156/90
[2017-04-24 12:00] VITALS: BP 154/84
[2017-04-24 16:00] VITALS: BP 152/90
[2017-04-24 20:00] VITALS: BP 149/84
[2017-04-25] VITALS: BP 156/88
[2017-04-25 07:13] LABS: HEMATOCRIT 42.2 % (37.0-47.0); HEMOGLOBIN 13.9 g/dl (12.0-16.0); MEAN CELL VOLUME 91.3 fl (81.0-99.0); MEAN CORPUSCULAR HGB 30.1 pg (27.0-31.0); MEAN CORPUSCULAR HGB CONC 32.9 g/dl (33.0-37.0); MEAN PLATELET VOLUME 8.6 fl (9.6-12.3); PLATELET COUNT AUTOMATED 494 10*3/uL (130-400); RED BLOOD COUNT 4.62 10*6/uL (4.10-5.10); RED CELL DISTRI WIDTH 13.7 % (0-14.5); WHITE BLOOD COUNT 10.5 10*3/uL (4.8-10.8)
[2017-04-25 07:40] LABS: ALBUMIN 2.8 gm/dl (3.1-4.5); ALKALINE PHOSPHATASE 91 U/L (45-117); BUN 12 mg/dl (7-24); CHLORIDE 100 mmol/L (98-107); CREATININE 0.58 mg/dL (0.55-1.02); POTASSIUM 3.8 mmol/L (3.5-5.1); SGOT/AST 11 IU/L (3-35); SGPT/ALT 22 U/L (12-78); SODIUM 138 mmol/L (136-145); TOTAL PROTEIN 6.8 gm/dL (6.4-8.2)
[2017-04-25 08:00] VITALS: BP 136/73
[2017-04-25 08:07] LABS: PLATELET SUFFICIENCY HIGH (NORMAL); TOTAL CELLS COUNTED 100 #CELLS
[2017-04-25 12:00] VITALS: BP 146/84
[2017-04-25 16:00] VITALS: BP 138/76
[2017-04-25 20:00] VITALS: BP 136/74
[2017-04-26] VITALS: BP 136/74
[2017-04-26 08:00] VITALS: BP 148/86
[2017-04-26 12:00] VITALS: BP 146/76
[2017-04-26] MEDS ORDERED: Nystatin 100,000 UNI PO (13:04)
[2017-04-26] MEDS ORDERED: DUONEB 3 MG/3 ML3 M1 NEB (13:04)
[2017-04-26] MEDS ORDERED: VIBRAMYCIN100 MG PO (13:04)
[2017-04-26] MEDS ORDERED: PREDNISONE10 MG PO (13:04)
[2017-04-26] MEDS ORDERED: NICOTROL10 MG INH (13:04)
[2017-04-26 16:00] VITALS: BP 144/70
[2017-04-27] MEDS ORDERED: PROAIR HFA8.5 GM INH (09:28)
== END 2017-04-26 17:00 | disposition home or self-care (01) | DRG 871 ==
LOC: ED 03:46 → EDHOLD 04:58 → 5E 04:58
PROVIDERS: Internal Medicine; Student in an Organized Health Care Education/Training Program; ADMIT Internal Medicine
DX: A41.9 Sepsis, unspecified organism (principal); J18.9 Pneumonia, unspecified organism; J96.01 Acute respiratory failure with hypoxia; E87.2 Acidosis; E44.0 Moderate protein-calorie malnutrition; J44.0 Chronic obstructive pulmonary disease with (acute) lower respiratory infection; J44.1 Chronic obstructive pulmonary disease with (acute) exacerbation; R65.20 Severe sepsis without septic shock; M19.90 Unspecified osteoarthritis, unspecified site; F17.210 Nicotine dependence, cigarettes, uncomplicated; K21.9 Gastro-esophageal reflux disease without esophagitis; F31.9 Bipolar disorder, unspecified; J20.9 Acute bronchitis, unspecified; E66.9 Obesity, unspecified; F40.01 Agoraphobia with panic disorder; R73.9 Hyperglycemia, unspecified; D47.3 Essential (hemorrhagic) thrombocythemia; Z68.35 Body mass index [BMI] 35.0-35.9, adult; Z71.6 Tobacco abuse counseling; Z86.73 Personal history of transient ischemic attack (TIA), and cerebral infarction without residual deficits; Z90.49 Acquired absence of other specified parts of digestive tract; Z82.49 Family history of ischemic heart disease and other diseases of the circulatory system; Z80.3 Family history of malignant neoplasm of breast; Z79.2 Long term (current) use of antibiotics; Z79.899 Other long term (current) drug therapy

== ENCOUNTER → 2017-05-02 | Outpatient (CLI) | payer OTHER ==
[~2017-05-02] MED LIST changes: +DUONEB 3 MG/3 ML3 M1 NEB; +NICOTROL10 MG INH; +Nystatin 100,000 UNI PO; +PROAIR HFA8.5 GM INH; +VIBRAMYCIN100 MG PO
== END | disposition home or self-care (01) ==
LOC: RESCLI 01:57
DX: J44.9 Chronic obstructive pulmonary disease, unspecified (principal); G89.29 Other chronic pain; F17.200 Nicotine dependence, unspecified, uncomplicated; E03.9 Hypothyroidism, unspecified; M17.12 Unilateral primary osteoarthritis, left knee; F33.40 Major depressive disorder, recurrent, in remission, unspecified; K21.9 Gastro-esophageal reflux disease without esophagitis; E55.9 Vitamin D deficiency, unspecified; F41.9 Anxiety disorder, unspecified; Z86.39 Personal history of other endocrine, nutritional and metabolic disease

== ENCOUNTER → 2017-08-03 | Outpatient (CLI) | payer OTHER | END | disposition home or self-care (01) | LOC: RESCLI 09:11 | DX: Z23 Encounter for immunization (principal); N32.81 Overactive bladder; E78.5 Hyperlipidemia, unspecified; J44.9 Chronic obstructive pulmonary disease, unspecified; F31.9 Bipolar disorder, unspecified; F33.40 Major depressive disorder, recurrent, in remission, unspecified; F41.9 Anxiety disorder, unspecified; K21.9 Gastro-esophageal reflux disease without esophagitis; J30.9 Allergic rhinitis, unspecified; E03.9 Hypothyroidism, unspecified; E55.9 Vitamin D deficiency, unspecified; E53.8 Deficiency of other specified B group vitamins; E66.01 Morbid (severe) obesity due to excess calories; Z86.73 Personal history of transient ischemic attack (TIA), and cerebral infarction without residual deficits ==

== ENCOUNTER → 2017-10-26 | Outpatient (CLI) | payer OTHER | END | disposition home or self-care (01) | LOC: RESCLI 02:06 | DX: F41.9 Anxiety disorder, unspecified (principal); E78.5 Hyperlipidemia, unspecified; E66.01 Morbid (severe) obesity due to excess calories; N32.81 Overactive bladder; J44.9 Chronic obstructive pulmonary disease, unspecified; G89.29 Other chronic pain; E55.9 Vitamin D deficiency, unspecified; E03.9 Hypothyroidism, unspecified; K21.9 Gastro-esophageal reflux disease without esophagitis; F33.40 Major depressive disorder, recurrent, in remission, unspecified; M17.12 Unilateral primary osteoarthritis, left knee; Z86.39 Personal history of other endocrine, nutritional and metabolic disease; Z87.891 Personal history of nicotine dependence ==

== ENCOUNTER 2017-12-29 12:24 | Emergency (ER) | payer OTHER ==
[~2017-12-29] VITALS: Ht 170.1 cm; Wt 99.8 kg
[2017-12-29] MEDS ORDERED: SEPTDS PO (12:59)
== END 2017-12-29 13:06 | disposition home or self-care (01) ==
LOC: ED 12:24
DX: L02.211 Cutaneous abscess of abdominal wall (principal); Z79.899 Other long term (current) drug therapy

== ENCOUNTER → 2018-01-04 | Outpatient (CLI) | payer OTHER ==
[~2018-01-04] MED LIST changes: +SEPTDS PO
== END | disposition home or self-care (01) ==
LOC: RESCLI 04:07
DX: Z00.01 Encounter for general adult medical examination with abnormal findings (principal); M79.605 Pain in left leg; M79.604 Pain in right leg; M54.5 Low back pain; R27.8 Other lack of coordination; M25.552 Pain in left hip; M25.551 Pain in right hip; Z87.891 Personal history of nicotine dependence; Z79.899 Other long term (current) drug therapy

== ENCOUNTER 2018-01-06 00:51 | Emergency (ER) | payer OTHER ==
[~2018-01-06] VITALS: Ht 162.5 cm; Wt 106.6 kg
--- NOTE | ~2018-01-06 | EKG ---
[place], [place] ELECTROCARDIOGRAM REPORT NAME: SHAQ GERBER UNIT #: [id number] ROOM: DOCTOR: EPIPHANY DRAFT REPORT BIRTHDATE: [birth year] [facility] Test Date: 2018-01-06 Test Time: 01:14:28 Pat Name: SHAQ GERBER Department: ER Room: 4 Gender: F Information Strategist: : 1960 Requested By: MARYBETH GARCÍA Order Number: [id number] Reading MD: Wendy Garcia MD Measurements Intervals [place] Rate: 69 P: 65 NE: 189 QRS: 14 QRSD: 102 T: 55 QT: 438 QTc: 470 Interpretive Statements Sinus rhythm Low voltage, extremity leads Abnormal EKG. Electronically Signed On 01-06-2018 12:03:07 PDT by Wendy Garcia MD CM:EKGRPT:ELECTROCARDIOGRAM REPORT 0114 1203 MARBYETH GARCÍA MD EPIPHANY DRAFT REPORT MARYBETH GARCÍA MD
[2018-01-06 01:26] LABS: BASO # 0.1 10*3/uL (0.0-0.1); BASO % 1.1 % (0.0-1.0); EOS # 0.1 10*3/uL (0.0-0.4); EOS % 1.1 % (1.0-4.0); HEMATOCRIT 41.4 % (37.0-47.0); HEMOGLOBIN 13.4 g/dl (12.0-16.0); LYMPH # 2.1 10*3/uL (1.3-4.4); LYMPH % 45.8 % (27.0-41.0); MEAN CORPUSCULAR HGB 29.5 pg (27.0-31.0); MEAN CORPUSCULAR HGB CONC 32.4 g/dl (33.0-37.0); MEAN PLATELET VOLUME 8.6 fl (9.6-12.3); MONO # 0.6 10*3/uL (0.1-1.0); NEUT # 1.8 10*3/uL (2.3-7.9); NEUT % 38.8 % (47.0-73.0); PLATELET COUNT AUTOMATED 345 10*3/uL (130-400); RED BLOOD COUNT 4.55 10*6/uL (4.10-5.10); RED CELL DISTRI WIDTH 14.4 % (0-14.5); WHITE BLOOD COUNT 4.6 10*3/uL (4.8-10.8)
[2018-01-06 01:43] LABS: ALBUMIN 3.3 gm/dl (3.1-4.5); ALKALINE PHOSPHATASE 118 U/L (45-117); BUN 6 mg/dl (7-24); CHLORIDE 104 mmol/L (98-107); POTASSIUM 3.6 mmol/L (3.5-5.1); SGOT/AST 11 IU/L (3-35); SGPT/ALT 14 U/L (12-78); SODIUM 138 mmol/L (136-145)
[2018-01-06 01:45] LABS: TROPONIN I < 0.015 ng/ml (<0.045)
== END 2018-01-06 02:07 | disposition home or self-care (01) ==
LOC: ED 00:51
PROVIDERS: Emergency Medicine Emergency Medical Services
DX: F41.1 Generalized anxiety disorder (principal); F43.0 Acute stress reaction; R07.89 Other chest pain; R06.02 Shortness of breath; F32.9 Major depressive disorder, single episode, unspecified; F31.9 Bipolar disorder, unspecified; K21.9 Gastro-esophageal reflux disease without esophagitis; J44.9 Chronic obstructive pulmonary disease, unspecified; M19.90 Unspecified osteoarthritis, unspecified site; Z79.899 Other long term (current) drug therapy; Z86.73 Personal history of transient ischemic attack (TIA), and cerebral infarction without residual deficits

== ENCOUNTER → 2018-01-06 | Outpatient (CLI) | payer OTHER | END | disposition home or self-care (01) | LOC: US 01-04 12:00 | DX: Z00.01 Encounter for general adult medical examination with abnormal findings (principal); M47.897 Other spondylosis, lumbosacral region; R27.8 Other lack of coordination; M25.551 Pain in right hip; M25.552 Pain in left hip; M54.5 Low back pain; I70.0 Atherosclerosis of aorta ==

== ENCOUNTER → 2018-01-12 | Outpatient (CLI) | payer OTHER | END | disposition home or self-care (01) | LOC: RESCLI 07:37 | DX: M17.12 Unilateral primary osteoarthritis, left knee (principal); J44.9 Chronic obstructive pulmonary disease, unspecified; G89.29 Other chronic pain; F17.210 Nicotine dependence, cigarettes, uncomplicated; R05 Cough; F33.40 Major depressive disorder, recurrent, in remission, unspecified; K21.9 Gastro-esophageal reflux disease without esophagitis; E03.9 Hypothyroidism, unspecified; E55.9 Vitamin D deficiency, unspecified; F41.9 Anxiety disorder, unspecified; F31.9 Bipolar disorder, unspecified; N32.81 Overactive bladder; E78.5 Hyperlipidemia, unspecified; E66.01 Morbid (severe) obesity due to excess calories; R27.8 Other lack of coordination; W57.XXXA Bitten or stung by nonvenomous insect and other nonvenomous arthropods, initial encounter; Z86.39 Personal history of other endocrine, nutritional and metabolic disease ==

== ENCOUNTER → 2018-01-25 | Outpatient (CLI) | payer OTHER | END | disposition home or self-care (01) | LOC: US 10:46 | DX: I65.23 Occlusion and stenosis of bilateral carotid arteries (principal) ==

== ENCOUNTER → 2018-01-27 | Outpatient (CLI) | payer OTHER | END | disposition home or self-care (01) | LOC: RESCLI 02:28 | DX: M17.12 Unilateral primary osteoarthritis, left knee (principal); G89.29 Other chronic pain; E66.01 Morbid (severe) obesity due to excess calories; R27.8 Other lack of coordination; K21.9 Gastro-esophageal reflux disease without esophagitis; E03.9 Hypothyroidism, unspecified; E78.5 Hyperlipidemia, unspecified; F41.9 Anxiety disorder, unspecified; F32.9 Major depressive disorder, single episode, unspecified; J44.9 Chronic obstructive pulmonary disease, unspecified; Z79.899 Other long term (current) drug therapy; Z88.8 Allergy status to other drugs, medicaments and biological substances; Z87.891 Personal history of nicotine dependence ==

== ENCOUNTER 2018-02-28 11:16 | Emergency (ER) | payer OTHER ==
[~2018-02-28] VITALS: Ht 167.6 cm; Wt 74.8 kg
--- NOTE | ~2018-02-28 | EKG ---
[place], [place] ELECTROCARDIOGRAM REPORT NAME: SHAQ GERBER UNIT #: [id number] ROOM: DOCTOR: EPIPHANY DRAFT REPORT BIRTHDATE: [birth year] [facility] Test Date: 2018-02-28 Test Time: 12:13:47 Pat Name: SHAQ GERBER Department: Room: Gender: F Load Dropper: Heidi Adorno : 1960 Requested By: DARION ARMSTRONG Order Number: [id number] Reading MD: Lizzeth Enamorado MD Measurements Intervals [place] Rate: 77 P: 45 WV: 179 QRS: -7 QRSD: 91 T: 47 QT: 415 QTc: 470 Interpretive Statements Sinus rhythm Low voltage, precordial leads Compared to ECG 01/06/2018 01:14:28 ST (T wave) deviation now present Myocardial infarct finding now present Electronically Signed On 02-28-2018 16:51:41 PDT by Lizzeth Enamorado MD CM:EKGRPT:ELECTROCARDIOGRAM REPORT [id number] 1651 DARION ARMSTRONG EPIPHANY DRAFT REPORT DARION ARMSTRONG
[~2018-02-28 11:16] MED LIST changes: +CARBAMAZEPINE200 M2 PO; -CARBAMAZEPINE400 MG PO; +KLONOPIN2 M1 PO
[2018-02-28 12:06] LABS: BASO % 0.7 % (0.0-1.0); EOS # 0.2 10*3/uL (0.0-0.4); EOS % 2.6 % (1.0-4.0); HEMATOCRIT 46.1 % (37.0-47.0); LYMPH # 1.7 10*3/uL (1.3-4.4); LYMPH % 28.7 % (27.0-41.0); MEAN CELL VOLUME 92.2 fl (81.0-99.0); MEAN CORPUSCULAR HGB CONC 32.5 g/dl (33.0-37.0); MEAN PLATELET VOLUME 8.6 fl (9.6-12.3); MONO # 0.6 10*3/uL (0.1-1.0); MONO % 10.3 % (3.0-9.0); NEUT # 3.3 10*3/uL (2.3-7.9); NEUT % 57.5 % (47.0-73.0); PLATELET COUNT AUTOMATED 344 10*3/uL (130-400); RED CELL DISTRI WIDTH 14.4 % (0-14.5); WHITE BLOOD COUNT 5.8 10*3/uL (4.8-10.8)
[2018-02-28 12:22] LABS: ALBUMIN 3.2 gm/dl (3.1-4.5); ALKALINE PHOSPHATASE 110 U/L (45-117); BUN 4 mg/dl (7-24); CHLORIDE 102 mmol/L (98-107); CREATININE 0.77 mg/dL (0.55-1.02); SGOT/AST 9 IU/L (3-35); SGPT/ALT 13 U/L (12-78); SODIUM 135 mmol/L (136-145); TOTAL PROTEIN 7.1 gm/dL (6.4-8.2)
[2018-02-28 12:23] LABS: TROPONIN I < 0.015 ng/ml (<0.045)
[2018-02-28 13:31] LABS: BILIRUBIN NEGATIVE (NEGATIVE); BLOOD NEGATIVE (NEGATIVE); CLARITY SL CLOUDY (CLEAR); COLOR YELLOW (YELLOW); GLUCOSE NEGATIVE (NEGATIVE); KETONE NEGATIVE (NEGATIVE); LEUKO ESTERASE NEGATIVE (NEGATIVE); NITRITE NEGATIVE (NEGATIVE); UROBILINOGEN 0.2 E.U./dl (0.2-1.0)
[2018-02-28 13:58] LABS: BACTERIA 1+; FINE GRANULAR CAST TNTC; HYALINE CAST TNTC
== END 2018-02-28 14:19 | disposition home or self-care (01) ==
LOC: ED 11:16
PROVIDERS: Nurse Practitioner Family
DX: R55 Syncope and collapse (principal); F17.200 Nicotine dependence, unspecified, uncomplicated; Z79.899 Other long term (current) drug therapy

== ENCOUNTER 2018-03-06 | Emergency (ER) | payer OTHER ==
[~2018-03-06] VITALS: Wt 113.4 kg
--- NOTE | ~2018-03-06 | EKG ---
[place], [place] ELECTROCARDIOGRAM REPORT NAME: SHAQ GERBER UNIT #: [id number] ROOM: DOCTOR: ELIS DRAFT REPORT BIRTHDATE: [birth year] [facility] Test Date: 2018-03-06 Test Time: 00:09:04 Pat Name: SHAQ GERBER Department: Room: Gender: F Ash Collector: : 1960 Requested By: JOSÉ CASH Order Number: [id number] Reading MD: Measurements Intervals [place] Rate: 85 P: 71 [place]: 168 QRS: 58 QRSD: 99 T: 66 QT: 396 QTc: 471 Interpretive Statements Sinus rhythm Atrial premature complex Borderline low voltage, extremity leads Baseline wander in lead(s) I,II,aVR,aVF,V3,V4,V5,V6 No previous ECG available for comparison CM:EKGRPT:ELECTROCARDIOGRAM REPORT 0009 2218 JOSÉ FELICIANO DRAFT REPORT JOSÉ CASH DO
[2018-03-06 00:32] LABS: BASO % 0.7 % (0.0-1.0); EOS # 0.3 10*3/uL (0.0-0.4); EOS % 4.5 % (1.0-4.0); HEMATOCRIT 47.5 % (37.0-47.0); HEMOGLOBIN 15.7 g/dl (12.0-16.0); LYMPH # 1.9 10*3/uL (1.3-4.4); LYMPH % 33.3 % (27.0-41.0); MEAN CELL VOLUME 91.2 fl (81.0-99.0); MEAN CORPUSCULAR HGB 30.1 pg (27.0-31.0); MEAN CORPUSCULAR HGB CONC 33.1 g/dl (33.0-37.0); MEAN PLATELET VOLUME 8.9 fl (9.6-12.3); MONO # 0.8 10*3/uL (0.1-1.0); MONO % 13.6 % (3.0-9.0); NEUT # 2.8 10*3/uL (2.3-7.9); NEUT % 47.9 % (47.0-73.0); PLATELET COUNT AUTOMATED 368 10*3/uL (130-400); RED BLOOD COUNT 5.21 10*6/uL (4.10-5.10); RED CELL DISTRI WIDTH 14.4 % (0-14.5); WHITE BLOOD COUNT 5.7 10*3/uL (4.8-10.8)
[2018-03-06 00:42] LABS: ACT PARTIAL THROMBO TIME 25.5 SECONDS (20.8-31.5)
[2018-03-06 00:52] LABS: ALBUMIN 3.4 gm/dl (3.1-4.5); ALKALINE PHOSPHATASE 115 U/L (45-117); BUN 6 mg/dl (7-24); CHLORIDE 99 mmol/L (98-107); CREATININE 0.93 mg/dL (0.55-1.02); POTASSIUM 3.4 mmol/L (3.5-5.1); SGOT/AST 12 IU/L (3-35); SGPT/ALT 14 U/L (12-78); SODIUM 135 mmol/L (136-145); TOTAL PROTEIN 7.2 gm/dL (6.4-8.2)
[2018-03-06 00:53] LABS: TROPONIN I < 0.015 ng/ml (<0.045)
[2018-03-06] MEDS ORDERED: LEVAQUIN750 M1 PO (00:53)
[2018-03-06] MEDS ORDERED: PREDNISONE50 MG PO (00:53)
== END 2018-03-06 01:47 | disposition left against medical advice (07) ==
LOC: ED
PROVIDERS: Student in an Organized Health Care Education/Training Program
DX: R06.02 Shortness of breath (principal); J44.9 Chronic obstructive pulmonary disease, unspecified; K21.9 Gastro-esophageal reflux disease without esophagitis; M19.90 Unspecified osteoarthritis, unspecified site; Z86.718 Personal history of other venous thrombosis and embolism; Z79.899 Other long term (current) drug therapy

== ENCOUNTER 2018-03-15 07:01 | Emergency (ER) | payer OTHER ==
[~2018-03-15] VITALS: Ht 162.5 cm; Wt 104.3 kg
--- NOTE | ~2018-03-15 | EKG ---
[place], [place] ELECTROCARDIOGRAM REPORT NAME: SHAQ GERBER UNIT #: [id number] ROOM: DOCTOR: ELIS DRAFT REPORT BIRTHDATE: [birth year] [facility] Test Date: 2018-03-15 Test Time: 07:12:23 Pat Name: SHAQ GERBER Department: Room: Gender: F Rehab Services Aide: : 1960 Requested By: PATRIC CAVAZOS Order Number: [id number] Reading MD: Measurements Intervals [place] Rate: 92 P: 62 [place]: 181 QRS: 15 QRSD: 90 T: 61 QT: 340 QTc: 421 Interpretive Statements Sinus rhythm Low voltage, extremity and precordial leads Abnormal R-wave progression, late transition Compared to ECG 03/06/2018 00:09:04 Atrial premature complex(es) no longer present CM:EKGRPT:ELECTROCARDIOGRAM REPORT 0712 0415 PATRIC FELICIANO DRAFT REPORT PATRIC CAVAZOS DO
[~2018-03-15 07:01] MED LIST changes: +LEVAQUIN750 M1 PO; +PREDNISONE50 MG PO
[2018-03-15 07:18] LABS: BASO # 0.1 10*3/uL (0.0-0.1); BASO % 1.2 % (0.0-1.0); EOS # 0.3 10*3/uL (0.0-0.4); EOS % 5.6 % (1.0-4.0); HEMATOCRIT 47.3 % (37.0-47.0); HEMOGLOBIN 15.4 g/dl (12.0-16.0); LYMPH # 1.7 10*3/uL (1.3-4.4); LYMPH % 29.4 % (27.0-41.0); MEAN CELL VOLUME 92.2 fl (81.0-99.0); MEAN CORPUSCULAR HGB CONC 32.6 g/dl (33.0-37.0); MEAN PLATELET VOLUME 8.7 fl (9.6-12.3); MONO # 0.8 10*3/uL (0.1-1.0); MONO % 13.8 % (3.0-9.0); NEUT # 2.9 10*3/uL (2.3-7.9); NEUT % 49.8 % (47.0-73.0); PLATELET COUNT AUTOMATED 352 10*3/uL (130-400); RED BLOOD COUNT 5.13 10*6/uL (4.10-5.10); RED CELL DISTRI WIDTH 14.4 % (0-14.5); WHITE BLOOD COUNT 5.9 10*3/uL (4.8-10.8)
[2018-03-15 07:34] LABS: ALKALINE PHOSPHATASE 130 U/L (45-117); BUN 5 mg/dl (7-24); CHLORIDE 107 mmol/L (98-107); CREATININE 0.65 mg/dL (0.55-1.02); SGOT/AST 10 IU/L (3-35); SGPT/ALT 15 U/L (12-78); SODIUM 142 mmol/L (136-145)
[2018-03-15 07:36] LABS: ACT PARTIAL THROMBO TIME 25.5 SECONDS (19.5-32.1); TROPONIN I < 0.015 ng/ml (<0.045)
== END 2018-03-15 07:15 | disposition left against medical advice (07) ==
LOC: ED 07:01
PROVIDERS: Internal Medicine
DX: R06.02 Shortness of breath (principal); R07.9 Chest pain, unspecified; R42 Dizziness and giddiness; J44.9 Chronic obstructive pulmonary disease, unspecified; K21.9 Gastro-esophageal reflux disease without esophagitis; F17.200 Nicotine dependence, unspecified, uncomplicated; Z79.2 Long term (current) use of antibiotics; Z79.899 Other long term (current) drug therapy; Z90.49 Acquired absence of other specified parts of digestive tract

== ENCOUNTER → 2018-03-16 | Outpatient (CLI) | payer OTHER ==
[~2018-03-16] MED LIST changes: +BENADRYL25 M2 PO; -CARBAMAZEPINE200 M2 PO; +CARBAMAZEPINE400 MG PO; +DETROL2 MG PO; +DOXYCYCLINE100 M3 PO; +GEODON60 MG PO; +LIPITOR10 MG PO; +MOBIC15 MG PO; +NEURONTIN100 MG PO
== END | disposition home or self-care (01) ==
LOC: RAD 02-07 01:12 → MAMMO 02-07 14:00 → RAD 02-23 02:13
DX: Z12.31 Encounter for screening mammogram for malignant neoplasm of breast (principal); Z13.820 Encounter for screening for osteoporosis; R92.1 Mammographic calcification found on diagnostic imaging of breast; Z78.0 Asymptomatic menopausal state

== ENCOUNTER 2018-03-21 13:06 | Inpatient (IN) | payer OTHER ==
[~2018-03-21] VITALS: Ht 160 cm; Wt 100.7 kg
--- NOTE | ~2018-03-21 | PR ---
[place], [place] PROGRESS NOTE [facility]: [facility]BER [id number] UNIT #: [id number] ROOM: 528 DOCTOR: BALBIR VELASQUEZ DO BIRTHDATE: [birth year] DOS: 03/23/2018 SUBJECTIVE: The patient was seen and examined at the bedside. She denies fevers, chills, chest pain, nausea, vomiting, abdominal pain or any changes in bowel or bladder habits. She states that she feels well and is experiencing an occasional nonproductive cough. OBJECTIVE: VITAL SIGNS: Show temperature at 97.8 degrees Fahrenheit, heart rate at 95, respiratory rate at 20, blood pressure at 138/76, pulse oximetry 96% on 4 liters nasal cannula. GENERAL APPEARANCE: The patient was awake, alert, responsive, cooperative and in no acute distress. HEENT: Head was normocephalic and atraumatic. No lesions or ulcerations were noted to the eyes. NECK: Trachea appears midline. HEART: Regular rate and rhythm were noted. Positive S1 and S2 sounds were heard. No murmurs, rubs or gallops were appreciated. Bilateral lower extremities were without pitting edema. PULMONARY: Occasional expiratory wheezing was heard. No rhonchi or rales were appreciated. ABDOMEN: Soft and nontender to palpation. Bowel sounds were auscultated. The abdomen was obese. EXTREMITIES: The bilateral lower extremities were without pitting edema. No clubbing, cyanosis or erythema was noted. LABORATORY DATA: Most recent CBC from 03/21/2018 showed a white count at 7.0, hemoglobin at 15.8, hematocrit at 48.3, platelets at 354. Most recent chemistries from 03/21/2018 showed sodium at 139, potassium at 3.6, chloride at 104, bicarbonate at 30, BUN at 5, creatinine at 0.64, glucose at 87, calcium at 8.3, magnesium at 2.2, total bilirubin at 0.2, AST at 10, ALT at 13, alkaline phosphatase at 121, albumin at 3.1, lipase at 75. MICROBIOLOGY: Blood cultures obtained on admission are still pending. A wound culture submitted yesterday 03/22/18 shows preliminary growth for heavy gram-positive cocci. IMAGING STUDIES: Chest x-ray obtained today shows grossly appearing clear lungs with an area of plate-like atelectasis to the left lower lobe. IMPRESSION: 1. Acute exacerbation of chronic obstructive pulmonary disease. 2. Chronic respiratory failure, on supplemental oxygen. 3. Tobacco abuse. 4. Morbid obesity. 5. Abdominal wound. PLAN OF MANAGEMENT: The patient is currently on IV azithromycin, IV Rocephin, Solu-Medrol 40 mg every 12 hours, bronchodilator therapy and guaifenesin for treatment of her COPD exacerbation and pneumonitis, the wound service is [place], [place] PROGRESS NOTE NAME: SHAQ GERBER UNIT #: [id number] ROOM: 528 DOCTOR: BALBIR VELASQUEZ DO BIRTHDATE: [birth year] following the patient and performed a bedside debridement of a left lower quadrant wound yesterday. The patient is clinically improved today. From a pulmonary standpoint, she is stable for discharge. Balbir Velasquez DO LEXUS WESTBROOK MD CM:HARRISON [id number] BALBIR VELASQUEZ DO 03/29/18 0804 interface
--- NOTE | ~2018-03-21 | CON ---
[place], [place] REPORT OF CONSULTATION [id number] UNIT #: [id number] ROOM: 528 DOCTOR: BALBIR VELASQUEZ DO BIRTHDATE: [birth year] DOS: 03/22/2018 REQUESTING PHYSICIAN: Hospitalist service. REASON FOR CONSULTATION: Acute exacerbation of COPD. HISTORY OF PRESENT ILLNESS: The patient is a 57-year-old female who presented to the ED on 03/21/2018 due to shortness of breath and chest heaviness. Reportedly, the patient was at [facility] and was advised to present to the ED for further care. A chest x-ray obtained in the ED showed clearing bibasilar plate-like atelectasis when compared to prior films from 03/15/2018 and 03/06/2018. The patient was administered 200 mg of IV Solu-Medrol, azithromycin intravenously as well as IV Rocephin and she was admitted to the general medical floor with telemetry monitoring for treatment of an acute exacerbation of COPD. The patient states that she had been short of breath for the past week and was experiencing a cough productive for white sputum. She also admitted to wheezing and fatigue. She uses a rescue inhaler, albuterol as needed and also uses albuterol nebulizer treatments at home. She does not use any supplemental oxygen at home, the Pulmonary Medicine Service was consulted for further management of the patient's acute exacerbation of COPD. PAST MEDICAL HISTORY: Includes COPD, agoraphobia with panic attacks, anxiety, bipolar 1 disorder, depression, gastroesophageal reflux disease, neurogenic bladder disorder, osteoarthritis, history of a stroke, vitamin D deficiency, history of a bowel obstruction with gangrene, history of hypothyroidism, tobacco abuse. PAST SURGICAL HISTORY: List includes history of cholecystectomy, history of resection of the small bowel, reportedly a history of 4-5 abdominal hernia repairs. SOCIAL HISTORY: The patient admits to a 30-year smoking history. She states that she is currently smoking 1 pack per day and has been doing so for the past 1-1/2 months. Prior to that, she states that she had been able to quit smoking for 9 months. The patient admits to occasional use of alcohol. She denies use of illicit drugs. She is currently . FAMILY HISTORY: The patient's mother is currently 78 years of age and her past medical history includes atrial fibrillation and hypertension. The patient reports that her father passed at age 76 from a bleeding ulcer. ALLERGIES: No known drug allergies. CURRENT MEDICATIONS: These include: Geodon 60 mg twice a day with meals, gabapentin 100 mg 3 times a day, Klonopin 2 mg 3 times a day as needed for anxiety, Lipitor 10 mg daily, guaifenesin 1200 mg every 12 hours, folic acid 1 mg daily, cyanocobalamin 1000 mcg daily, venlafaxine extended release 225 mg once a day, lamotrigine 200 mg once a day, levothyroxine 50 mcg daily, IV Solu-Medrol 40 mg twice a day, IV azithromycin 500 mg daily, IV Rocephin 1 g daily, oxybutynin 5 mg 3 times a day, Klonopin 2 mg 3 times a day scheduled. [place], [place] REPORT OF CONSULTATION NAME: SHAQ GERBER UNIT #: [id number] ROOM: 528 DOCTOR: BALBIR VELASUQEZ DO BIRTHDATE: [birth year] Hydroxyzine 50 mg 3 times a day every 8 hours scheduled. BuSpar 5 mg twice a day as needed for anxiety, carbamazepine 400 mg at bedtime. Nicotrol inhaler every 1 hour as needed for the urge to smoke, Nystatin powder topically every 8 hours, DuoNeb treatments every 4 hours. REVIEW OF SYSTEMS: GENERAL: The patient denies fever or chills. HEENT: Denies changes to vision, changes to hearing, eye pain, ear pain, or dysphagia. CARDIOVASCULAR: Denies chest pain, palpitations or diaphoresis. RESPIRATORY: Admits to shortness of breath, dyspnea on exertion, cough productive for white sputum, wheezing. ABDOMEN: Denies nausea, abdominal pain, vomiting, diarrhea, melena, or hematochezia. GENITOURINARY: Denies dysuria, hematuria, increased urinary frequency or urgency. NEUROLOGICAL: Denies lightheadedness or dizziness. PSYCHOLOGICAL: Admits to anxiety, depression. Denies substance abuse currently. ENDOCRINE: Denies intolerance to cold or heat. SKIN: Denies any new rashes, ulcers, or lesions. PHYSICAL EXAMINATION: VITAL SIGNS: Show a temperature at 98.2 degrees Fahrenheit, heart rate at 80, respiratory rate at 20, blood pressure at 132/80, pulse oximetry at 93% on room air. GENERAL APPERANCE: The patient is awake, alert, responsive, cooperative and in no acute distress. HEENT: Head is normocephalic and atraumatic. There are no lesions or ulcerations noted to the eyes. NECK: Trachea appears midline. HEART: Regular rate and rhythm was noted. CHEST: Noted. HEENT: Positive S1 and S2 sounds were heard. No murmurs, rubs or gallops were appreciated. Bilateral lower extremities were without pitting edema. PULMONARY: Occasional expiratory wheezing was heard. There was coughing on examination. ABDOMEN: Soft and nontender to palpation. Bowel sounds were auscultated. Abdomen was obese. EXTREMITIES: Bilateral lower extremities were without pitting edema. No clubbing, cyanosis or erythema was noted. NEUROLOGIC: The patient was grossly without any focal neurologic deficits. Cranial nerves 2-12 are grossly intact. PSYCHOLOGICAL: The patient was within normal mood and normal affect. She was a fair historian. SKIN: Warm and dry without any induration or erythema. LABORATORY DATA: Most recent CBC from yesterday 03/21/2018 showed white count at 7.0, hemoglobin at 15.8, hematocrit 48.3, platelets at 354. Arterial blood gas obtained earlier today show pH at 7.390, pCO2 at 46.4, pO2 at 65.2, [place], [place] REPORT OF CONSULTATION NAME: SHAQ GERBER UNIT #: [id number] ROOM: 528 DOCTOR: BALBIR VELASQUEZ DO BIRTHDATE: [birth year] bicarbonate at 27.6. Coagulation studies obtained yesterday 03/21/2018 showed a PT at 10.8, INR at 1.0, activated PTT at 25.0. Most recent chemistries from yesterday 03/21/2018 shows sodium at 139, potassium at 3.6, chloride at 104, bicarbonate at 30, BUN at 5, creatinine at 0.64, glucose at 87, calcium at 8.3, magnesium at 2.2, total bilirubin at 0.2, AST at 10, ALT at 13, alkaline phosphatase at 121. C-reactive protein was 0.96, proBNP was 171.00, albumin was 3.1 and lipase was 75. Troponins were cycled x 3 and were negative all 3 times. In terms of microbiology, blood cultures are pending. IMAGING STUDIES: Chest x-ray obtained on 03/21/2018 showed clearing bibasilar plate-like atelectasis when compared to prior chest x-rays from 03/15/2018 and 03/06/2018. In addition, no new pulmonary processes were noted. IMPRESSION: 1. Acute exacerbation of chronic obstructive pulmonary disease. 2. Tachypnea. 3. Lymphopenia. 4. Hypermagnesemia. 5. Chronic respiratory failure, on supplemental oxygen. 6. Agoraphobia. 7. Anxiety. 8. Depression. 9. Bipolar disorder. 10. Gastroesophageal reflux disease. 11. Hyperlipidemia. 12. Neurogenic bladder. 13. Osteoarthritis. 14. Vitamin D deficiency. 15. Hypothyroidism. PLAN OF MANAGEMENT: The patient is on IV azithromycin, IV Rocephin, IV Solu-Medrol, Mucinex, and bronchodilator therapy for treatment of her COPD. Sputum culture and blood cultures are pending. A flutter valve has been ordered for the patient. Supplemental oxygen should be titrated to maintain a pulse oximetry at or above 92%. Balbir Velasquez DO [place], [place] REPORT OF CONSULTATION NAME: SHAQ GERBER UNIT #: [id number] ROOM: 528 DOCTOR: BALBIR VELASQUEZ DO BIRTHDATE: [birth year] LEXUS WESTBROOK MD CM:CONSTR:REPORT OF CONSULTATION 1423 03/22/18 1526 interface
--- NOTE | ~2018-03-21 | PR ---
[place], [place] PROGRESS NOTE NAME: SHAQ GERBER UNIT #: [id number] ROOM: 528 DOCTOR: LEXUS MITTAL MD BIRTHDATE: [birth year] DOS: 03/23/2018 PULMONARY ADDENDUM NOTE SUBJECTIVE: She was independently seen and examined with [id number] encounter, history was confirmed. Physical examination was performed. The lab was review. The assessment and management of the patient for today's note was completed personally. Note done by the medical laboratory scientist was approved. The patient has been doing well with resolving respiratory symptom at this time. Denies symptoms of chest pain or fever. The wound on the abdomen was noted with a growth of gram-positive cocci. PHYSICAL EXAMINATION: VITAL SIGNS: For the patient which were recorded showed normal temperature, respiratory rate 20, heart rate 95, blood pressure 120/88. Pulse ox saturation on room air is 97% saturation. HEENT: Head was atraumatic. Eye nonicterus. NECK: Supple. CARDIOVASCULAR: S1, S2 audible. LUNGS: Clear. ABDOMEN: Soft and nontender. Bowel sounds are present. EXTREMITIES: Without any acute edema. LABORATORY DATA: Blood culture noted has no bacterial growth on . Abdominal routine culture noted to have a growth of gram-positive cocci. IMPRESSION: 1. The patient has been currently noted with progressive improvement in resolution, possibility of acute pneumonia in the left lower lobe with resolution of acute hypoxic respiratory failure. Resting pulse oxygen saturation at rest was noted normal. 2. Abdominal wound culture were noted gram-positive cocci. PLAN OF TREATMENT: Pulmonary standpoint, the patient could be discharged. Oral antibiotic per choice of the primary care physician. Other supportive therapy and plan of management to be continued. Usual care. All other treatment therapy, plan of care and management, plan of treatment. [place], [place] PROGRESS NOTE NAME: SHAQ GERBER UNIT #: [id number] ROOM: 528 DOCTOR: LEXUS MITTAL MD BIRTHDATE: [birth year] LEXUS WESTBROOK MD CM:PNTRANS 1341 1401 LEXUS BRICE MD 03/23/18 1358 interface
--- NOTE | ~2018-03-21 | EKG ---
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
--- NOTE | ~2018-03-21 | CON ---
[place], [place] REPORT OF CONSULTATION NAME[id number] UNIT #: [id number] ROOM: 528 DOCTOR: LEXUS MITTAL MD BIRTHDATE: [birth year] DOS: 03/22/2018 PULMONARY CONSULTATION, EVALUATION, AND MANAGEMENT PULMONARY ADDENDUM NOTE CONSULTATION REQUESTED BY: Hospitalist service. REASON FOR CONSULTATION: Assessment of current pneumonia and other symptoms. HISTORY OF PRESENT ILLNESS: This is a 57-year-old patient who was rather independently seen and examined, [id number] encounter, history was confirmed. Physical examination performed and labs reviewed. RADIOLOGY DATA REVIEW: Assessment for the patient was personally completed and management was recommended for the patient personally as well. HISTORY OF PRESENT ILLNESS: A 57-year-old white female who has been noted here for the past 3-4 weeks. She was seen in the Emergency Room, 02/28/2018. The patient advised for hospitalization for the assessment of symptoms of COPD. The patient refused and was not admitted to the hospital. The patient was seen in the Emergency Room again for the patient on 03/21/2018. The patient was noted with increased chest congestion, heaviness and tightness in the chest, associated symptoms of wheezing. The patient denies any symptoms of fever or chills. The cough has been noted mostly nonproductive. She denies symptoms of hemoptysis. REVIEW OF SYSTEMS: The patient was noted: CONSTITUTIONAL SYMPTOMS: Fatigue and tiredness. Denies symptoms of fever or chills. EYES: Denies any burning, redness, or tenderness. EARS, NOSE, THROAT SYMPTOMS: No sore throat, hoarseness, otalgia, postnasal drainage or epistaxis. CARDIOVASCULAR: Denies angina pain, edema or pain in lower extremity. GASTROINTESTINAL SYMPTOMS: Denies dysphagia, nausea, vomiting, diarrhea, abdominal pain, hematemesis, melena, or hematochezia. SKIN: Denies abnormal lesions or rashes. CENTRAL NERVOUS SYSTEM: No dizziness, headache, diplopia, syncopal episode. Remaining systems were reviewed. They were noted all negative. PAST MEDICAL HISTORY: 1. The patient was noted with history of COPD. 2. The patient with panic attacks and agoraphobia. 3. Bipolar disorder. 4. General anxiety disorder. 5. Nicotine dependent. 6. Gastroesophageal reflux. 7. Hyperlipidemia. 8. Neurogenic bladder. [place], [place] REPORT OF CONSULTATION NAME: [facility]AQ [facility]ERBER [facility]: [id number] UNIT #: [id number] ROOM: 528 DOCTOR: DARIANA BRICE MD,LEXUS BIRTHDATE: [birth year] 9. Osteoarthritis. 10. Morbid obesity. 11. History of transient ischemic attack. 12. Vitamin D deficiency. 13. Hypothyroidism. PAST SURGICAL HISTORY: 1. Ventral abdominal hernia repair. 2. Cholecystectomy. 3. Small bowel resection. SOCIAL HISTORY: The patient is currently noted as smoking at least a pack of cigarettes per day, started smoking as a teenager up to 2 packs of cigarettes per day. The patient stated she stay away from smoking for 10 months and resumed the tobacco use. The patient for the past few months. FAMILY HISTORY: The patient's father with complication of myocardial infarction. Mother is living with history of breast cancer. CURRENT MEDICATIONS: Which was administered during the hospitalization noted as use of Geodon, Lipitor, gabapentin, Benadryl p.r.n. use, Mucinex, folic acid, B12, Effexor, Lamictal, levothyroxine, Solu-Medrol 40 mg b.i.d., hydroxyzine, carbamazepine, oxybutynin chloride, nicotine replacement patches, Zithromax and Rocephin. The patient was also getting Klonopin. DRUG ALLERGIES: Noted as no known drug allergies. PHYSICAL EXAMINATION: GENERAL: A 57-year-old female patient currently noted sitting on the bed without any acute distress. Height of 5 feet 3 inches, weight of 222 pounds, BMI 39. VITAL SIGNS: The patient shows a normal temperature since admission, respiratory rate 14-16, heart rate 89, blood pressure 142/77 to 132/80. Pulse oxygen saturation of the patient was noted as 86% saturation on room air and 3 liters at 94% saturation. HEENT: Chronic obesity. Head was atraumatic. Eyes nonicterus. NECK: Supple and obese. Decreased posterior pharyngeal space, high tongue base, crowding of soft tissue structures. CARDIOVASCULAR: S1, S2 is audible. LUNGS: Noted moderate decreased breath sounds was noted. Scattered wheezing, no crackles were heard. ABDOMEN: Soft. Moderate obesity. Bowel sounds present. EXTREMITIES: The patient without any acute edema, clubbing, cyanosis. CENTRAL NERVOUS SYSTEM: Cranial nerves 2-12 intact. SKIN: Visible skin, no lesions or rashes. LABORATORY DATA: CMP that was done for the patient on 03/15/2018, was noted as normal in the Emergency Room. PT/PTT normal. CBC yesterday on admission of the patient was noted as eosinophils was elevated mildly as 2%, otherwise normal CBC. The PT, PTT of the patient yesterday noted as normal. CMP of the patient [place], [place] REPORT OF CONSULTATION NAME: SHAQ GERBER UNIT #: [id number] ROOM: 528 DOCTOR: DARIANA BRICE MD,LEXUS BIRTHDATE: [birth year] yesterday on admission was noted as normal electrolytes grossly. Troponin of the patient noted as normal. The chest x-ray one view that was done for the patient was noted with a small area of infiltration with atelectasis noted in the left lower lobe. Mild hyperinflation of the lung was noted. IMPRESSION: 1. The patient who has been currently admitted to the hospital noted with small area of atelectasis and acute pneumonia with acute hypoxic respiratory failure, result of acute exacerbation of chronic obstructive pulmonary disease. 2. History of chronic nicotine dependence. 3. Multiple psychiatric problem of the patient, listed on several high dose medication for that as well. PLAN OF MANAGEMENT: For nonaspiration community-acquired pneumonia. Continue current antibiotic, Zithromax and the Rocephin. Continue Solu-Medrol, the patient's medical management of acute exacerbation of COPD. Bronchodilator given every 4 hours. Sputum for Gram stain culture. Repeat chest x-ray in the morning to assess the progression of the current abnormality. Other plan of management was change in treatment for the patient to be ordered based on progression of the illness. Thanks for allowing me to participate in the care of this patient. LEXUS WESTBROOK MD CM:CONSTR:REPORT OF CONSULTATION 1445 03/22/18 1831 interface
[~2018-03-21 13:06] MED LIST changes: -BENADRYL25 M2 PO; +CARBAMAZEPINE200 M2 PO; -CARBAMAZEPINE400 MG PO; -DETROL2 MG PO; -DOXYCYCLINE100 M3 PO; -GEODON60 MG PO; -LIPITOR10 MG PO; -MOBIC15 MG PO; -NEURONTIN100 MG PO
[2018-03-21] MEDS ORDERED: MOBIC15 MG PO (13:14)
[2018-03-21 13:18] VITALS: BP 119/79
[2018-03-21 13:39] LABS: BASO # 0.1 10*3/uL (0.0-0.1); BASO % 1.1 % (0.0-1.0); EOS # 0.1 10*3/uL (0.0-0.4); HEMATOCRIT 48.3 % (37.0-47.0); HEMOGLOBIN 15.8 g/dl (12.0-16.0); LYMPH # 1.8 10*3/uL (1.3-4.4); MEAN CELL VOLUME 91.1 fl (81.0-99.0); MEAN CORPUSCULAR HGB 29.8 pg (27.0-31.0); MEAN CORPUSCULAR HGB CONC 32.7 g/dl (33.0-37.0); MEAN PLATELET VOLUME 8.7 fl (9.6-12.3); MONO # 0.8 10*3/uL (0.1-1.0); MONO % 10.8 % (3.0-9.0); NEUT # 4.2 10*3/uL (2.3-7.9); NEUT % 59.8 % (47.0-73.0); PLATELET COUNT AUTOMATED 354 10*3/uL (130-400); RED CELL DISTRI WIDTH 14.3 % (0-14.5)
[2018-03-21 13:55] LABS: ALBUMIN 3.1 gm/dl (3.1-4.5); ALKALINE PHOSPHATASE 121 U/L (45-117); BUN 5 mg/dl (7-24); CHLORIDE 104 mmol/L (98-107); CREATININE 0.64 mg/dL (0.55-1.02); LIPASE 75 U/L (73-393); POTASSIUM 3.6 mmol/L (3.5-5.1); SGOT/AST 10 IU/L (3-35); SGPT/ALT 13 U/L (12-78); SODIUM 139 mmol/L (136-145); TOTAL PROTEIN 7.1 gm/dL (6.4-8.2)
[2018-03-21 13:56] LABS: TROPONIN I < 0.015 ng/ml (<0.045)
[2018-03-21 14:33] VITALS: BP 139/71
[2018-03-21 16:00] VITALS: BP 134/90
[2018-03-21 20:00] VITALS: BP 138/84
[2018-03-22] VITALS: BP 143/77
[2018-03-22] MEDS ORDERED: DETROL2 MG PO (00:19)
[2018-03-22 01:42] LABS: ABG BASE EXCESS 2.3 mmol/L (-2.0-2.0); ABG HCO3 27.6 mmol/l (22-26); ABG O2 SATURATION 93.2 % (95-97); ARTERIAL BLOOD GAS PCO2 46.4 mmHg (35-45); ARTERIAL BLOOD GAS PH 7.39 (7.35-7.45); ARTERIAL BLOOD GAS PO2 65.2 mmHg (80-90)
[2018-03-22 08:00] VITALS: BP 132/80
[2018-03-22] MEDS ORDERED: BENADRYL25 M2 PO (09:14)
[2018-03-22] MEDS ORDERED: NEURONTIN100 MG PO (09:14)
[2018-03-22] MEDS ORDERED: LIPITOR10 MG PO (09:15)
[2018-03-22] MEDS ORDERED: GEODON60 MG PO (09:17)
[2018-03-22 12:00] VITALS: BP 121/66
[2018-03-22 16:00] VITALS: BP 135/80
[2018-03-22 20:00] VITALS: BP 103/63
[2018-03-23] VITALS: BP 150/79
[2018-03-23 08:00] VITALS: BP 138/76; BP 156/82
[2018-03-23 12:00] VITALS: BP 128/88
[2018-03-23] MEDS ORDERED: PREDNISONE10 MG PO (12:55)
[2018-03-23] MEDS ORDERED: DOXYCYCLINE100 M3 PO (12:55)
== END 2018-03-23 12:10 | disposition home health service (06) | DRG 166 ==
LOC: ED 13:06 → EDHOLD 15:29 → 5E 15:29
PROVIDERS: Emergency Medicine; Internal Medicine
PROC: 0JB80ZZ Excision of Abdomen Subcutaneous Tissue and Fascia, Open Approach (ICD-10-PCS; principal; 2018-03-22)
DX: J44.0 Chronic obstructive pulmonary disease with (acute) lower respiratory infection (principal); J18.9 Pneumonia, unspecified organism; J96.21 Acute and chronic respiratory failure with hypoxia; E44.0 Moderate protein-calorie malnutrition; Z68.41 Body mass index [BMI] 40.0-44.9, adult; J44.1 Chronic obstructive pulmonary disease with (acute) exacerbation; K21.9 Gastro-esophageal reflux disease without esophagitis; N31.9 Neuromuscular dysfunction of bladder, unspecified; F31.9 Bipolar disorder, unspecified; E83.41 Hypermagnesemia; E83.51 Hypocalcemia; R74.8 Abnormal levels of other serum enzymes; R07.89 Other chest pain; L98.499 Non-pressure chronic ulcer of skin of other sites with unspecified severity; M19.90 Unspecified osteoarthritis, unspecified site; E66.01 Morbid (severe) obesity due to excess calories; F41.1 Generalized anxiety disorder; E78.5 Hyperlipidemia, unspecified; F40.01 Agoraphobia with panic disorder; F17.200 Nicotine dependence, unspecified, uncomplicated; E03.9 Hypothyroidism, unspecified; Z82.49 Family history of ischemic heart disease and other diseases of the circulatory system; Z86.73 Personal history of transient ischemic attack (TIA), and cerebral infarction without residual deficits; Z90.49 Acquired absence of other specified parts of digestive tract; Z80.3 Family history of malignant neoplasm of breast; Z99.81 Dependence on supplemental oxygen

== ENCOUNTER 2018-04-05 05:07 | Emergency (ER) | payer OTHER ==
[~2018-04-05] VITALS: Ht 162.5 cm; Wt 104.3 kg
--- NOTE | ~2018-04-05 | EKG ---
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
[~2018-04-05 05:07] MED LIST changes: +BENADRYL25 M2 PO; +DETROL2 MG PO; +DOXYCYCLINE100 M3 PO; +GEODON60 MG PO; +LIPITOR10 MG PO; +MOBIC15 MG PO; +NEURONTIN100 MG PO
[2018-04-05 05:58] LABS: BASO % 0.5 % (0.0-1.0); EOS # 0.2 10*3/uL (0.0-0.4); EOS % 2.6 % (1.0-4.0); HEMATOCRIT 48.4 % (37.0-47.0); HEMOGLOBIN 16.1 g/dl (12.0-16.0); LYMPH # 1.9 10*3/uL (1.3-4.4); LYMPH % 29.5 % (27.0-41.0); MEAN CELL VOLUME 91.5 fl (81.0-99.0); MEAN CORPUSCULAR HGB 30.4 pg (27.0-31.0); MEAN CORPUSCULAR HGB CONC 33.3 g/dl (33.0-37.0); MONO # 0.9 10*3/uL (0.1-1.0); MONO % 14.3 % (3.0-9.0); NEUT # 3.4 10*3/uL (2.3-7.9); NEUT % 52.6 % (47.0-73.0); PLATELET COUNT AUTOMATED 303 10*3/uL (130-400); RED BLOOD COUNT 5.29 10*6/uL (4.10-5.10); RED CELL DISTRI WIDTH 14.7 % (0-14.5); WHITE BLOOD COUNT 6.5 10*3/uL (4.8-10.8)
[2018-04-05 06:12] LABS: ALKALINE PHOSPHATASE 104 U/L (45-117); BUN 7 mg/dl (7-24); CHLORIDE 104 mmol/L (98-107); POTASSIUM 3.6 mmol/L (3.5-5.1); SGOT/AST 12 IU/L (3-35); SGPT/ALT 15 U/L (12-78); SODIUM 141 mmol/L (136-145); TOTAL PROTEIN 6.9 gm/dL (6.4-8.2)
[2018-04-05 06:18] LABS: TROPONIN I < 0.015 ng/ml (<0.045)
== END 2018-04-05 07:15 | disposition home or self-care (01) ==
LOC: ED 05:07
PROVIDERS: Emergency Medicine
DX: J44.9 Chronic obstructive pulmonary disease, unspecified (principal); F41.9 Anxiety disorder, unspecified; K21.9 Gastro-esophageal reflux disease without esophagitis; F17.200 Nicotine dependence, unspecified, uncomplicated; Z79.899 Other long term (current) drug therapy; Z79.82 Long term (current) use of aspirin; Z90.49 Acquired absence of other specified parts of digestive tract

== ENCOUNTER 2018-04-08 22:41 | Inpatient (IN) | payer OTHER ==
[~2018-04-08] VITALS: Ht 162.6 cm; Wt 101.8 kg
--- NOTE | ~2018-04-08 | EKG ---
[place], [place] ELECTROCARDIOGRAM REPORT NAME: SHAQ GERBER UNIT #: [id number] ROOM: 402 DOCTOR: ELIS DRAFT REPORT BIRTHDATE: [birth year] [facility] Test Date: 2018-04-08 Test Time: 23:25:24 Pat Name: SHAQ GERBER Department: Room: 402 Gender: F Probation Counselor: NOEMI RESP : 1960 Requested By: JOSÉ CASH Order Number: [id number] Reading MD: Eric Saunders MD Measurements Intervals [place] Rate: 97 P: 72 [place]: 165 QRS: 25 QRSD: 93 T: 71 QT: 357 QTc: 454 Interpretive Statements Sinus rhythm Borderline low voltage, extremity leads Compared to ECG 04/05/2018 19:24:33 Myocardial infarct finding no longer present Electronically Signed On 04-11-2018 8:46:52 PDT by Eric Saunders MD CM:EKGRPT:ELECTROCARDIOGRAM REPORT 2325 0846 JOSÉ FELICIANO DRAFT REPORT JOSÉ CASH DO
[2018-04-08 22:50] VITALS: BP 90/60
[2018-04-08 23:20] VITALS: BP 84/48
[2018-04-08 23:30] VITALS: BP 90/35
[2018-04-08 23:51] VITALS: BP 96/34
[2018-04-08 23:53] LABS: BASO # 0.1 10*3/uL (0.0-0.1); BASO % 0.8 % (0.0-1.0); EOS # 0.1 10*3/uL (0.0-0.4); EOS % 1.9 % (1.0-4.0); HEMOGLOBIN 16.3 g/dl (12.0-16.0); LYMPH # 2.2 10*3/uL (1.3-4.4); LYMPH % 34.5 % (27.0-41.0); MEAN CELL VOLUME 91.9 fl (81.0-99.0); MEAN CORPUSCULAR HGB CONC 32.6 g/dl (33.0-37.0); MEAN PLATELET VOLUME 8.9 fl (9.6-12.3); MONO # 0.8 10*3/uL (0.1-1.0); NEUT # 3.2 10*3/uL (2.3-7.9); NEUT % 50.6 % (47.0-73.0); PLATELET COUNT AUTOMATED 278 10*3/uL (130-400); RED BLOOD COUNT 5.44 10*6/uL (4.10-5.10); RED CELL DISTRI WIDTH 14.7 % (0-14.5); WHITE BLOOD COUNT 6.3 10*3/uL (4.8-10.8)
[2018-04-09] VITALS (9 sets, daily range): BP systolic 93–132; BP diastolic 56–80
[2018-04-09 00:16] LABS: ALKALINE PHOSPHATASE 87 U/L (45-117); BUN 11 mg/dl (7-24); CHLORIDE 106 mmol/L (98-107); POTASSIUM 3.6 mmol/L (3.5-5.1); SGOT/AST 14 IU/L (3-35); SGPT/ALT 16 U/L (12-78); SODIUM 142 mmol/L (136-145); TOTAL PROTEIN 6.4 gm/dL (6.4-8.2)
[2018-04-09 00:19] LABS: TROPONIN I < 0.015 ng/ml (<0.045)
[2018-04-09 00:42] LABS: ACT PARTIAL THROMBO TIME 23.5 SECONDS (20.8-31.5)
[2018-04-09] MEDS ORDERED: MOBIC15 MG PO (03:08)
[2018-04-09] MEDS ORDERED: VENTOLIN 02.5 MG/3 M INH (03:15)
[2018-04-09] MEDS ORDERED: NON-ASPIRIN EX500 M1 PO (03:22)
[2018-04-10] VITALS: BP 150/79
[2018-04-10 06:38] LABS: BASO % 0.1 % (0.0-1.0); HEMOGLOBIN 14.7 g/dl (12.0-16.0); LYMPH # 0.7 10*3/uL (1.3-4.4); LYMPH % 10.1 % (27.0-41.0); MEAN CELL VOLUME 92.6 fl (81.0-99.0); MEAN CORPUSCULAR HGB 29.6 pg (27.0-31.0); MONO # 0.3 10*3/uL (0.1-1.0); MONO % 4.9 % (3.0-9.0); NEUT # 5.7 10*3/uL (2.3-7.9); NEUT % 84.6 % (47.0-73.0); PLATELET COUNT AUTOMATED 285 10*3/uL (130-400); RED BLOOD COUNT 4.97 10*6/uL (4.10-5.10); RED CELL DISTRI WIDTH 14.6 % (0-14.5); WHITE BLOOD COUNT 6.7 10*3/uL (4.8-10.8)
[2018-04-10 07:16] LABS: BUN 12 mg/dl (7-24); CHLORIDE 106 mmol/L (98-107); CREATININE 0.66 mg/dL (0.55-1.02); POTASSIUM 3.9 mmol/L (3.5-5.1); SODIUM 141 mmol/L (136-145)
== END 2018-04-10 07:25 | disposition left against medical advice (07) | DRG 193 ==
LOC: ED 22:41 → EDHOLD 04-09 00:21 → 4E 04-09 00:21 → ICCU 04-09 00:27 → 4E 04-09 17:54
PROVIDERS: Internal Medicine; Student in an Organized Health Care Education/Training Program
DX: J18.9 Pneumonia, unspecified organism (principal); J96.90 Respiratory failure, unspecified, unspecified whether with hypoxia or hypercapnia; J44.0 Chronic obstructive pulmonary disease with (acute) lower respiratory infection; I95.9 Hypotension, unspecified; F31.9 Bipolar disorder, unspecified; F40.00 Agoraphobia, unspecified; K21.9 Gastro-esophageal reflux disease without esophagitis; E66.9 Obesity, unspecified; M19.90 Unspecified osteoarthritis, unspecified site; F17.210 Nicotine dependence, cigarettes, uncomplicated; F41.9 Anxiety disorder, unspecified; Z79.899 Other long term (current) drug therapy; Z86.73 Personal history of transient ischemic attack (TIA), and cerebral infarction without residual deficits; Z90.49 Acquired absence of other specified parts of digestive tract; Z82.49 Family history of ischemic heart disease and other diseases of the circulatory system; Z80.3 Family history of malignant neoplasm of breast; Z80.8 Family history of malignant neoplasm of other organs or systems; Z68.38 Body mass index [BMI] 38.0-38.9, adult

== ENCOUNTER → 2018-04-11 | Outpatient (CLI) | payer OTHER ==
[~2018-04-11] MED LIST changes: +AVPAK AZITHROM250 MG PO; +LAMICTAL200 MG PO; +MUCINEX ER600 MG PO; +NON-ASPIRIN EX500 M1 PO; +VENTOLIN 02.5 MG/3 M INH
== END | disposition home or self-care (01) ==
LOC: RESCLI 10:52
DX: J44.9 Chronic obstructive pulmonary disease, unspecified (principal); F32.9 Major depressive disorder, single episode, unspecified; E03.9 Hypothyroidism, unspecified; K21.9 Gastro-esophageal reflux disease without esophagitis; E55.9 Vitamin D deficiency, unspecified; E78.5 Hyperlipidemia, unspecified; N32.81 Overactive bladder; F41.9 Anxiety disorder, unspecified; M17.12 Unilateral primary osteoarthritis, left knee; F17.200 Nicotine dependence, unspecified, uncomplicated; G40.909 Epilepsy, unspecified, not intractable, without status epilepticus; Z79.899 Other long term (current) drug therapy; Z79.82 Long term (current) use of aspirin; Z88.8 Allergy status to other drugs, medicaments and biological substances

== ENCOUNTER 2018-04-25 17:16 | Inpatient (IN) | payer OTHER ==
[~2018-04-25] VITALS: Ht 162.6 cm; Wt 97.3 kg
--- NOTE | ~2018-04-25 | PR ---
[place], [place] PROGRESS NOTE NAME: SHAQ GERBER UNIT #: [id number] ROOM: 402 DOCTOR: DARIANA BRICE MD,LEXUS BIRTHDATE: [birth year] DOS: 04/27/2018 PULMONARY PROGRESS NOTE SUBJECTIVE: The patient is noted comfortable at this time, resting on the bed. Shortness of breath has been improving. Cough and wheezing is also resolving. Denies symptoms of chest pain. OBJECTIVE: VITAL SIGNS: Normal temperature, respiratory rate 20, heart rate 92, blood pressure 126/77. Pulse oxygen saturation recorded on 3 liters nasal cannula as 98% saturation. HEENT: Head is atraumatic. Eyes nonicterus. Chronic obesity. NECK: Supple. CARDIOVASCULAR: S1 and S2 audible. LUNGS: Without any crackles. Mild expiratory wheezing. Moderately decreased breath sounds bilaterally. ABDOMEN: Soft, nontender. LABORATORY DATA: The lab today is noted as normal CBC. Urine drug screen that was done yesterday, benzodiazepines only noted in the urine. IMPRESSION: 1. Resolving [id number] hypercapnic hypoxic respiratory failure. 2. Exacerbation of chronic obstructive pulmonary disease. 3. History of chronic nicotine dependence. 4. Small basilar area of atelectasis noted on chest x-ray with minimal pleural fluid as well. PLAN OF MANAGEMENT: No changes in the plan of care. Continue bronchodilators, oxygen supplementation, except reduction of Solu-Medrol to b.i.d. dosing. Other supportive plan of management and care. Usual treatments. LEXUS WESTBROOK MD CM:PNTRANS [id number] LEXUS BRICE MD 05/08/18 0926 interface
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
--- NOTE | ~2018-04-25 | CON ---
[place], [place] REPORT OF CONSULTATION NAME: SHAQ GERBER UNIT #: [id number] ROOM: 402 DOCTOR: PHD SHIRLEY SANDERS BIRTHDATE: [birth year] DOS: 04/26/2018 HISTORY OF PRESENT ILLNESS: The patient is a 57-year-old female with history of bipolar 1 disorder and agoraphobia, who was referred by the hospitalist with concerns for depression and suicidal ideations. She recently broke up with her boyfriend after a significant argument and is now homeless. Her son will allow her to stay with them for 3 days and her daughters are looking for an apartment for her. At the present time, the patient is on the 4th floor at [facility]. She is and has 5 children. She has been on disability for mental health for many years. Alcohol and illegal drug use were denied. Tobacco use was reported as 1 pack per day. PAST MEDICAL HISTORY: Agoraphobia with panic attacks, anxiety, bipolar 1 disorder, cerebrovascular disease, COPD, depression, GERD, neurogenic bladder disorder, osteoarthritis, moderate protein-calorie malnutrition, TIA, vitamin D deficiency. MEDICATIONS: Lipitor, Tegretol, Effexor XR, Mobic, Lovenox, Solu-Medrol, Lamictal, Neurontin, Geodon, Ditropan, Mucinex, DuoNeb and Klonopin, Zithromax and Rocephin. PHYSICAL EXAMINATION: The patient was lying comfortably in bed, in no apparent distress. She is awake, alert and oriented to person, place, time and situation. Eye contact and social skills were fair. The patient was guarded and appeared to minimize her current stressors. Affect was blunted and mood was irritable. She emphatically denied suicidal ideation, plan, and intent. She also denied homicidal ideation, plan, and intent. Speech was poorly articulated. Expressive and receptive language appeared within normal limits on a conversational basis. Thought process was linear and goal directed. Thought content was negative for hallucinations and delusions. Insight and judgment were fair. She received psychiatric medication management from [facility], but is not currently in counseling and has not been for many years. She firmly denied a need or desire for further mental health treatment at this time. She states that her current medication regimen adequately manages her symptoms with bipolar disorder and anxiety. She denied history of suicidal ideation and attempt. DIAGNOSES: Bipolar 1 disorder or agoraphobia. PLAN: The patient will likely benefit from outpatient counseling which she declined. She does not appear to be an appropriate candidate for the Behavioral Health Unit at this time. Thank you very much for this consult. [place], [place] REPORT OF CONSULTATION NAME: SHAQ GERBER UNIT #: [id number] ROOM: 402 DOCTOR: FREEMAN, PHD SHIRLEY BIRTHDATE: [birth year] Philomena Sanders, PhD CM:CONSTR:REPORT OF CONSULTATION 1456 04/26/18 1948 interface
[~2018-04-25 17:16] MED LIST changes: -AVPAK AZITHROM250 MG PO; -LAMICTAL200 MG PO; -MUCINEX ER600 MG PO
[2018-04-25 17:17] VITALS: BP 124/80
[2018-04-25 18:04] LABS: BASO % 0.5 % (0.0-1.0); EOS # 0.1 10*3/uL (0.0-0.4); EOS % 1.7 % (1.0-4.0); HEMATOCRIT 49.7 % (37.0-47.0); HEMOGLOBIN 16.5 g/dl (12.0-16.0); LYMPH # 1.7 10*3/uL (1.3-4.4); LYMPH % 29.7 % (27.0-41.0); MEAN CORPUSCULAR HGB 30.2 pg (27.0-31.0); MEAN CORPUSCULAR HGB CONC 33.2 g/dl (33.0-37.0); MEAN PLATELET VOLUME 8.9 fl (9.6-12.3); MONO # 0.7 10*3/uL (0.1-1.0); MONO % 11.8 % (3.0-9.0); NEUT # 3.3 10*3/uL (2.3-7.9); NEUT % 56.1 % (47.0-73.0); PLATELET COUNT AUTOMATED 321 10*3/uL (130-400); RED BLOOD COUNT 5.46 10*6/uL (4.10-5.10); RED CELL DISTRI WIDTH 14.7 % (0-14.5); WHITE BLOOD COUNT 5.9 10*3/uL (4.8-10.8)
[2018-04-25 18:24] LABS: ALBUMIN 3.2 gm/dl (3.1-4.5); ALKALINE PHOSPHATASE 111 U/L (45-117); BUN 8 mg/dl (7-24); CHLORIDE 104 mmol/L (98-107); CREATININE 0.71 mg/dL (0.55-1.02); POTASSIUM 3.7 mmol/L (3.5-5.1); SGOT/AST 11 IU/L (3-35); SGPT/ALT 15 U/L (12-78); SODIUM 140 mmol/L (136-145); TOTAL PROTEIN 7.1 gm/dL (6.4-8.2)
[2018-04-25 19:33] VITALS: BP 134/81
[2018-04-25] MEDS ORDERED: MOBIC15 MG PO (20:02)
[2018-04-25] MEDS ORDERED: DETROL2 MG PO (20:02)
[2018-04-25] MEDS ORDERED: LAMICTAL200 MG PO (20:03)
[2018-04-25] MEDS ORDERED: EFFEXOR XR75 M1 PO (20:03)
[2018-04-25] MEDS ORDERED: TEGRETOL200 MG PO (20:04)
[2018-04-25] MEDS ORDERED: GEODON60 MG PO (20:04)
[2018-04-25] MEDS ORDERED: LIPITOR10 MG PO (20:05)
[2018-04-25] MEDS ORDERED: NEURONTIN100 MG PO (20:05)
[2018-04-25] MEDS ORDERED: KLONOPIN2 M1 PO (20:23)
[2018-04-25 20:48] LABS: ABG BASE EXCESS 2.1 mmol/L (-2.0-2.0); ABG HCO3 29.4 mmol/l (22-26); ABG O2 SATURATION 90.8 % (95-97); ARTERIAL BLOOD GAS PCO2 57.2 mmHg (35-45); ARTERIAL BLOOD GAS PH 7.33 (7.35-7.45); ARTERIAL BLOOD GAS PO2 60.1 mmHg (80-90)
[2018-04-26] VITALS: BP 131/81
[2018-04-26 06:22] LABS: BASO % 0.7 % (0.0-1.0); HEMATOCRIT 49.9 % (37.0-47.0); HEMOGLOBIN 15.8 g/dl (12.0-16.0); LYMPH # 0.8 10*3/uL (1.3-4.4); LYMPH % 25.2 % (27.0-41.0); MEAN CELL VOLUME 93.1 fl (81.0-99.0); MEAN CORPUSCULAR HGB 29.5 pg (27.0-31.0); MEAN CORPUSCULAR HGB CONC 31.7 g/dl (33.0-37.0); MEAN PLATELET VOLUME 9.5 fl (9.6-12.3); MONO # 0.2 10*3/uL (0.1-1.0); MONO % 5.4 % (3.0-9.0); NEUT # 2.1 10*3/uL (2.3-7.9); NEUT % 68.7 % (47.0-73.0); PLATELET COUNT AUTOMATED 334 10*3/uL (130-400); RED BLOOD COUNT 5.36 10*6/uL (4.10-5.10); RED CELL DISTRI WIDTH 14.8 % (0-14.5)
[2018-04-26 06:38] LABS: CHLORIDE 105 mmol/L (98-107); POTASSIUM 3.8 mmol/L (3.5-5.1); SODIUM 142 mmol/L (136-145)
[2018-04-26 06:44] LABS: ACT PARTIAL THROMBO TIME 22.7 SECONDS (20.8-31.5)
[2018-04-26 06:59] LABS: BUN 9 mg/dl (7-24); CHOLESTEROL 156 mg/dL (<200); CREATININE 0.66 mg/dL (0.55-1.02); FREE T4 0.81 ng/dl (0.76-1.46); HDL CHOLESTEROL 49 mg/dl (40-60); LDL CHOLESTEROL 90 mg/dL (9-159); PHOSPHOROUS 4.1 mg/dL (2.5-4.9); THYROID STIM HORMONE (HS) 0.703 uIU/ml (0.358-4.75); TRIGLYCERIDES 85 mg/dl (<150); VLDL CHOLESTEROL 17 mg/dL (6-40)
[2018-04-26 12:00] VITALS: BP 148/81
[2018-04-26 16:00] VITALS: BP 99/51
[2018-04-26 20:00] VITALS: BP 136/74
[2018-04-26 22:39] LABS: URINE AMPHETAMINES < 1000 (1000ng/ml); URINE BARBITURATES < 200 (200ng/ml); URINE BENZODIAZEPINES > 200 (200ng/ml); URINE CANNABINOIDS (THC) < 50 (50ng/ml); URINE COCAINE < 300 (300ng/ml); URINE METHADONE < 300 (300ng/ml); URINE OPIATES < 300 (300ng/ml); URINE PHENCYCLIDINE < 25 (25ng/ml)
[2018-04-27] VITALS: BP 128/77
[2018-04-27 07:06] LABS: BASO % 0.1 % (0.0-1.0); HEMATOCRIT 48.2 % (37.0-47.0); HEMOGLOBIN 15.3 g/dl (12.0-16.0); LYMPH # 0.9 10*3/uL (1.3-4.4); LYMPH % 8.9 % (27.0-41.0); MEAN CELL VOLUME 94.3 fl (81.0-99.0); MEAN CORPUSCULAR HGB 29.9 pg (27.0-31.0); MEAN CORPUSCULAR HGB CONC 31.7 g/dl (33.0-37.0); MONO # 0.5 10*3/uL (0.1-1.0); MONO % 4.8 % (3.0-9.0); NEUT # 8.7 10*3/uL (2.3-7.9); NEUT % 85.9 % (47.0-73.0); PLATELET COUNT AUTOMATED 319 10*3/uL (130-400); RED BLOOD COUNT 5.11 10*6/uL (4.10-5.10); RED CELL DISTRI WIDTH 15.1 % (0-14.5); WHITE BLOOD COUNT 10.1 10*3/uL (4.8-10.8)
[2018-04-27 08:00] VITALS: BP 126/77
[2018-04-27] MEDS ORDERED: AVPAK AZITHROM250 MG PO (11:34)
[2018-04-27] MEDS ORDERED: MUCINEX ER600 MG PO (11:34)
[2018-04-27] MEDS ORDERED: PREDNISONE10 MG PO (11:34)
== END 2018-04-27 12:15 | disposition home or self-care (01) | DRG 871 ==
LOC: ED 17:16 → 4E 18:54 → EDHOLD 18:54 → 4E 20:01
PROVIDERS: Emergency Medicine; Internal Medicine; Internal Medicine Nephrology; Student in an Organized Health Care Education/Training Program
DX: A41.9 Sepsis, unspecified organism (principal); J18.9 Pneumonia, unspecified organism; J96.21 Acute and chronic respiratory failure with hypoxia; J96.22 Acute and chronic respiratory failure with hypercapnia; J44.1 Chronic obstructive pulmonary disease with (acute) exacerbation; E44.0 Moderate protein-calorie malnutrition; J44.0 Chronic obstructive pulmonary disease with (acute) lower respiratory infection; R45.851 Suicidal ideations; F17.210 Nicotine dependence, cigarettes, uncomplicated; E66.01 Morbid (severe) obesity due to excess calories; E78.5 Hyperlipidemia, unspecified; J20.9 Acute bronchitis, unspecified; Z91.19 Patient's noncompliance with other medical treatment and regimen; M19.90 Unspecified osteoarthritis, unspecified site; K21.9 Gastro-esophageal reflux disease without esophagitis; N31.9 Neuromuscular dysfunction of bladder, unspecified; E55.9 Vitamin D deficiency, unspecified; F31.9 Bipolar disorder, unspecified; F40.01 Agoraphobia with panic disorder; I67.9 Cerebrovascular disease, unspecified; J44.9 Chronic obstructive pulmonary disease, unspecified; F41.9 Anxiety disorder, unspecified; E83.41 Hypermagnesemia; Z86.73 Personal history of transient ischemic attack (TIA), and cerebral infarction without residual deficits; Z87.01 Personal history of pneumonia (recurrent); Z90.49 Acquired absence of other specified parts of digestive tract; Z82.49 Family history of ischemic heart disease and other diseases of the circulatory system; Z85.3 Personal history of malignant neoplasm of breast; Z79.899 Other long term (current) drug therapy; Z71.6 Tobacco abuse counseling; Z59.0 Homelessness; Z68.36 Body mass index [BMI] 36.0-36.9, adult

== ENCOUNTER → 2018-07-19 | Outpatient (CLI) | payer OTHER ==
[~2018-07-19] MED LIST changes: +AVPAK AZITHROM250 MG PO; +LAMICTAL200 MG PO; +MUCINEX ER600 MG PO
== END | disposition home or self-care (01) ==
LOC: RESCLI 10:33
DX: M25.551 Pain in right hip (principal); M19.90 Unspecified osteoarthritis, unspecified site; E03.9 Hypothyroidism, unspecified; K21.9 Gastro-esophageal reflux disease without esophagitis; E78.5 Hyperlipidemia, unspecified; J44.9 Chronic obstructive pulmonary disease, unspecified; F17.200 Nicotine dependence, unspecified, uncomplicated; Z79.899 Other long term (current) drug therapy

== ENCOUNTER → 2018-12-20 | Outpatient (CLI) | payer OTHER | END | disposition home or self-care (01) | LOC: RESCLI 13:32 | DX: K21.9 Gastro-esophageal reflux disease without esophagitis (principal); E53.8 Deficiency of other specified B group vitamins; N32.81 Overactive bladder; J44.9 Chronic obstructive pulmonary disease, unspecified; F17.200 Nicotine dependence, unspecified, uncomplicated; E78.5 Hyperlipidemia, unspecified; Z79.899 Other long term (current) drug therapy; Z88.8 Allergy status to other drugs, medicaments and biological substances ==

== ENCOUNTER 2019-08-16 22:47 | Inpatient (IN) | payer OTHER ==
[~2019-08-16] VITALS: Ht 160 cm; Wt 77.8 kg
[2019-08-16 22:53] VITALS: BP 124/87
[2019-08-16 23:30] LABS: BASO % 0.6 % (0.0-1.0); EOS % 0.2 % (1.0-4.0); HEMATOCRIT 49.2 % (37.0-47.0); HEMOGLOBIN 16.4 g/dl (12.0-16.0); LYMPH # 1.2 10*3/uL (1.3-4.4); LYMPH % 18.3 % (27.0-41.0); MEAN CELL VOLUME 91.8 fl (81.0-99.0); MEAN CORPUSCULAR HGB 30.6 pg (27.0-31.0); MEAN CORPUSCULAR HGB CONC 33.3 g/dl (33.0-37.0); MEAN PLATELET VOLUME 8.9 fl (9.6-12.3); NEUT # 4.2 10*3/uL (2.3-7.9); NEUT % 65.6 % (47.0-73.0); PLATELET COUNT AUTOMATED 299 10*3/uL (130-400); RED BLOOD COUNT 5.36 10*6/uL (4.10-5.10); RED CELL DISTRI WIDTH 14.4 % (0-14.5); WHITE BLOOD COUNT 6.4 10*3/uL (4.8-10.8)
[2019-08-16 23:41] LABS: ACT PARTIAL THROMBO TIME 31.8 SECONDS (20.0-32.1)
[2019-08-16 23:50] LABS: ALBUMIN 3.8 gm/dl (3.1-4.5); ALKALINE PHOSPHATASE 113 U/L (45-117); BUN 6 mg/dl (7-24); CHLORIDE 103 mmol/L (98-107); CREATININE 0.85 mg/dL (0.55-1.02); POTASSIUM 3.3 mmol/L (3.5-5.1); SGOT/AST 10 IU/L (3-35); SGPT/ALT 13 U/L (12-78); SODIUM 136 mmol/L (136-145); TOTAL PROTEIN 7.5 gm/dL (6.4-8.2)
[2019-08-16 23:53] LABS: TROPONIN I < 0.015 ng/ml (<0.045)
[2019-08-17] VITALS (10 sets, daily range): BP systolic 92–143; BP diastolic 50–80
--- NOTE | 2019-08-17 | NUR ---
PT ASSISTED ON AND OFF BEDSIDE TOILET.URINE SPECIMEN COLLECTED.PT O2 SAT DROPP 90%RA.HX COPD.PT PLACED ON 2L O2 VIA NC.PT C/O HEADACHE AND ANXIETY.REQUESTING TYLENOL AND HER EVENING DOSE OF KLONOPIN. NOTIFIED.
[2019-08-17 00:30] LABS: BILIRUBIN NEGATIVE (NEGATIVE); BLOOD NEGATIVE (NEGATIVE); CLARITY CLEAR (CLEAR); COLOR YELLOW (YELLOW); EPITHELIAL CELLS 15-20; GLUCOSE NEGATIVE (NEGATIVE); KETONE NEGATIVE (NEGATIVE); LEUKO ESTERASE NEGATIVE (NEGATIVE); NITRITE NEGATIVE (NEGATIVE); SPECIFIC GRAVITY 1.015 (1.005-1.030); UROBILINOGEN 0.2 E.U./dl (0.2-1.0); WBC 0-2 wbc/hpf (0-5)
[2019-08-17 00:31] LABS: BACTERIA 1+
--- NOTE | 2019-08-17 00:35 | NUR ---
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
[2019-08-17] MEDS ORDERED: Synthroid,Levo25 MCG PO (00:38)
[2019-08-17] MEDS ORDERED: VENLAFAXINE HYD75 M3 PO (00:40)
[2019-08-17] MEDS ORDERED: PRENATAL VITAM1 EAC3 PO (00:41)
[2019-08-17] MEDS ORDERED: BUSPAR15 MG PO (00:43)
[2019-08-17] MEDS ORDERED: PROAIR HFA8.5 GM INH (00:43)
--- NOTE | 2019-08-17 00:44 | NUR ---
PT HAS BAG WITH MEDICATIONS, WALLET,DENTURES,CELL PHONE CHIROPRACTIC PRACTICE MANAGER,AND MISCELLANEOUS ITEMS.
--- NOTE | 2019-08-17 00:55 | NUR ---
PT REPOSITIONED IN BED.
--- NOTE | 2019-08-17 01:30 | NUR ---
Pt placed on BiPap 12/6 FiO2 35%. SpO2 95%. Pt tolerating well. Alarms on and audible.
--- NOTE | 2019-08-17 02:08 | NUR ---
RESPIRATORY AT BEDSIDE TO OBTAIN ABG'S.
[2019-08-17 02:17] LABS: ABG BASE EXCESS 1.9 mmol/L (-2.0-2.0); ARTERIAL BLOOD GAS PH 7.378 (7.35-7.45)
--- NOTE | 2019-08-17 03:28 | NUR ---
NURSE TO NURSE REPORT GIVEN TO HELIO MERRITT.
--- NOTE | 2019-08-17 03:30 | NUR ---
PT MEDICATED WITH 1GM ROCEPHIN IV.
--- NOTE | 2019-08-17 03:45 | NUR ---
A 58, admitted to [facility], under the services of SULEIMAN Jiang DO with a diagnosis of RESP FAILURE AND COPD EXACERBATION. Chief complaint is SOB. Patient arrived via stretcher from ER. Monitor applied. Initial assessment completed. Vital signs taken and recorded. SULEIMAN JIANG DO notified of admission to the unit. Orders received. See assessment for past medical history, medications and allergies. Patient and/or family oriented to unit. [facility] visitation policy reviewed. Clothing/patient valuable form completed. HUSSEIN ROMEO
[2019-08-17] MEDS ORDERED: BUSPIRONE30 MG PO (04:09)
--- NOTE | 2019-08-17 04:43 | NUR ---
BIPAP APPLIED. 2ND IV BOLUS BEING GIVEN. SPUTUM CONT AT BEDSIDE WITH INSTRUCTIONS. AFEBRILE. TEMP IS 98.6. NO DISTRESS NOTED. REFUSES TO GO DOWN FOR CTA AT PRESENT TIME. ALSO CANNOT GO TO CT SCAN ON BIPAP. DR. GUTIERRES AWARE. WILL REASSESS ON DAYLIGHT SHIFT.
--- NOTE | 2019-08-17 05:22 | NUR ---
DR. GAMBLE BEEPED FOR CONSULT.
--- NOTE | 2019-08-17 06:08 | NUR ---
RESTING IN BED WITH EYES CLOSED. APPEARS TO BE SLEEPING. HOB ELEVATED. SIDE RAILS UP X'S 2. CALL LIGHT IN REACH. BED ALARM INTACT. BIPAP INTACT. PULSE OX 97%. MONITOR REMAINS NSR IN THE 70'S. REMAINS WIHTOUT C/O'S CHEST PAIN OR DISCOMFORT. IV FLUIDS CONT AT 100CC/HR. CONDITION GUARDED.
--- NOTE | 2019-08-17 06:32 | NUR ---
DR. WESTBROOK NOTIFIED OF CONSULT. NO NEW ORDERS RECEIVED.
[2019-08-17 06:52] LABS: BASO % 0.5 % (0.0-1.0); EOS % 0.5 % (1.0-4.0); HEMATOCRIT 47.3 % (37.0-47.0); HEMOGLOBIN 15.2 g/dl (12.0-16.0); LYMPH # 0.4 10*3/uL (1.3-4.4); LYMPH % 10.3 % (27.0-41.0); MEAN CELL VOLUME 91.7 fl (81.0-99.0); MEAN CORPUSCULAR HGB 29.5 pg (27.0-31.0); MEAN CORPUSCULAR HGB CONC 32.1 g/dl (33.0-37.0); MEAN PLATELET VOLUME 8.9 fl (9.6-12.3); MONO # 0.1 10*3/uL (0.1-1.0); MONO % 2.6 % (3.0-9.0); NEUT # 3.6 10*3/uL (2.3-7.9); NEUT % 85.6 % (47.0-73.0); PLATELET COUNT AUTOMATED 296 10*3/uL (130-400); RED BLOOD COUNT 5.16 10*6/uL (4.10-5.10); RED CELL DISTRI WIDTH 14.4 % (0-14.5); WHITE BLOOD COUNT 4.2 10*3/uL (4.8-10.8)
[2019-08-17 07:01] LABS: ACT PARTIAL THROMBO TIME 38.4 SECONDS (20.0-32.1)
[2019-08-17 07:17] LABS: ALBUMIN 3.2 gm/dl (3.1-4.5); BUN 8 mg/dl (7-24); CHLORIDE 108 mmol/L (98-107); CHOLESTEROL 176 mg/dL (<200); POTASSIUM 3.5 mmol/L (3.5-5.1); SGOT/AST 12 IU/L (3-35); SGPT/ALT 15 U/L (12-78); SODIUM 139 mmol/L (136-145)
[2019-08-17 07:25] LABS: ALKALINE PHOSPHATASE 93 U/L (45-117); CREATININE 0.78 mg/dL (0.55-1.02); FREE T4 0.76 ng/dl (0.76-1.46); HDL CHOLESTEROL 47 mg/dl (40-60); LDL CHOLESTEROL 120 mg/dL (9-159); PHOSPHOROUS 4.1 mg/dL (2.5-4.9); THYROID STIM HORMONE (HS) 0.628 uIU/ml (0.358-4.75); TOTAL PROTEIN 6.7 gm/dL (6.4-8.2); TRIGLYCERIDES 45 mg/dl (<150); VLDL CHOLESTEROL 9 mg/dL (6-40)
[2019-08-17 08:22] LABS: VITAMIN D, 25-HYDROXY 35.9 ng/mL (30-100)
--- NOTE | 2019-08-17 08:38 | NUR ---
RESTING QUIETLY, NO VOICED C/O, RESP EAYS, HARSH HACKY COUGH IV FLUIDS CONTINUE
--- NOTE | 2019-08-17 10:36 | NUR ---
DR WESTBROOK IN TO SEE PT
--- NOTE | 2019-08-17 11:00 | NUR ---
PT ADMITS TO TAKING HER HOME DOSE OF BUSPAR/KLONIPIN-WHICH HER DTRS GAVE HER DTRS AGREED TO TAKE THE BOTTLE OF MEDS HOME
--- NOTE | 2019-08-17 11:15 | NUR ---
cardiology here, requested pt be npo for possible stress today, if he can get a dose of meds
--- NOTE | 2019-08-17 14:10 | NUR ---
REFUSES [facility]
--- NOTE | 2019-08-17 17:32 | NUR ---
TRANSFERRED TO [facility] WITH ALL BELONGINGS
[2019-08-18] VITALS: BP 149/83
--- NOTE | 2019-08-18 02:29 | NUR ---
24 HR chart check completed.
--- NOTE | 2019-08-18 02:30 | NUR ---
PT. AWAKEND AND OFF OF BIPAP TO GO TO BATHROOM. PATIENT WANTED TO HAVE HER NICOTROL INHALER AND THEN WILL GO BACK ON BIPAP.
[2019-08-18 06:28] LABS: BASO % 0.6 % (0.0-1.0); EOS % 0.9 % (1.0-4.0); HEMATOCRIT 44.6 % (37.0-47.0); HEMOGLOBIN 14.5 g/dl (12.0-16.0); LYMPH # 1.6 10*3/uL (1.3-4.4); LYMPH % 48.6 % (27.0-41.0); MEAN CELL VOLUME 93.1 fl (81.0-99.0); MEAN CORPUSCULAR HGB 30.3 pg (27.0-31.0); MEAN CORPUSCULAR HGB CONC 32.5 g/dl (33.0-37.0); MEAN PLATELET VOLUME 9.1 fl (9.6-12.3); MONO # 0.6 10*3/uL (0.1-1.0); MONO % 18.7 % (3.0-9.0); NEUT % 31.2 % (47.0-73.0); PLATELET COUNT AUTOMATED 275 10*3/uL (130-400); RED BLOOD COUNT 4.79 10*6/uL (4.10-5.10); RED CELL DISTRI WIDTH 14.6 % (0-14.5); WHITE BLOOD COUNT 3.2 10*3/uL (4.8-10.8)
[2019-08-18 07:00] LABS: BUN 7 mg/dl (7-24); CHLORIDE 111 mmol/L (98-107); CREATININE 0.63 mg/dL (0.55-1.02); POTASSIUM 3.4 mmol/L (3.5-5.1); SODIUM 144 mmol/L (136-145)
[2019-08-18 08:00] VITALS: BP 140/80
--- NOTE | 2019-08-18 09:08 | NUR ---
DR TATE ON THE FLOOR AND STATES TO DC FLUIDS AND TO HAVE PEG TUBE FEEDING AT 20.
--- NOTE | 2019-08-18 10:24 | NUR ---
Patient resting while on BIPAP when this RESPIRATORY CARE INSTRUCTOR-S attempted to meet with pt. Will attempt at another time.
[2019-08-18 12:00] VITALS: BP 126/67
[2019-08-18 16:00] VITALS: BP 125/66
[2019-08-18 20:00] VITALS: BP 147/75
--- NOTE | 2019-08-18 20:45 | NUR ---
24 HR chart check completed.
[2019-08-19] VITALS: BP 145/70
--- NOTE | 2019-08-19 01:00 | NUR ---
PATIENT TOOK BIPAP OFF AND DOES NOT WANT IT BACK ON. 02 2L NC PUT BACK ON.
--- NOTE | 2019-08-19 01:28 | NUR ---
HARSH HACKY MOIST COUGH NOTED.
--- NOTE | 2019-08-19 02:44 | NUR ---
UP TO BATHROOM WITH MINIMAL ASSISTANCE. PT. STILL ON O2 2L NC WITH OCCAS MOIST COUGH. NO ACUTE DISTRESS NOTED.
--- NOTE | 2019-08-19 09:30 | NUR ---
ASSESSMENT FOR HOME O2 TESTING: SPO2 @ REST ON ROOM AIR 93% HR 92 RR 20 BP 144/75 SPO2 ON ROOM AIR WITH EXERTION 90-93% HR 104-116 SPO2 ON ROOM AIR RECOVERY 94% HR 100 RR 24 BP 152/84 PT. DID NOT REQUIRE SUPPLEMENTAL O2 AT REST OR DURING AMBULATION. RN NOTIFIED.
--- NOTE | 2019-08-19 09:43 | NUR ---
Underwriting Sales Representative in to talk to patient. Patient states lives at home with self. There are 0 steps in the home. Physician: [facility] Home health services: no Patient's level of ADLs: INDEPENDENT Patient has working utilities: yes DME: no Follow-up physician's appointment after d/c: yes Does patient want to access PORTAL?: no Discharge plan Patient resides at home independently. Pt was polite but quickly stated that she had no needs and that she planned on being discharged today. Pt stated that she sees no improvement when on O2 N/C and would not use it if prescribed for home use. LIZ TORRES
[2019-08-19] MEDS ORDERED: TAMIFLU 75MG CA75 MG PO (10:59)
[2019-08-19] MEDS ORDERED: ZITHROMAX250 MG PO (10:59)
--- NOTE | 2019-08-19 11:45 | NUR ---
PT DISCHARGED AT THIS TIME. IV REMOVED AND PRESSURE DRESSING APPLIED. VERBALIZED UNDERSTANDING OF DISCHARGE INSTRUCTIONS. DAUGHTER HERE TO TAKE PATIENT HOME.
[2019-08-19 12:00] VITALS: BP 119/66
== END 2019-08-19 11:45 | disposition home or self-care (01) | DRG 720 ==
LOC: ED 22:47 → EDHOLD 08-17 03:05 → ICCU 08-17 03:10 → 4E 08-17 17:28
PROVIDERS: Emergency Medicine; Internal Medicine; ADMIT Internal Medicine
DX: A41.9 Sepsis, unspecified organism (principal); J96.01 Acute respiratory failure with hypoxia; J96.02 Acute respiratory failure with hypercapnia; J44.1 Chronic obstructive pulmonary disease with (acute) exacerbation; J44.0 Chronic obstructive pulmonary disease with (acute) lower respiratory infection; J10.00 Influenza due to other identified influenza virus with unspecified type of pneumonia; R65.20 Severe sepsis without septic shock; E87.6 Hypokalemia; K21.9 Gastro-esophageal reflux disease without esophagitis; M19.90 Unspecified osteoarthritis, unspecified site; N31.9 Neuromuscular dysfunction of bladder, unspecified; F32.9 Major depressive disorder, single episode, unspecified; F40.01 Agoraphobia with panic disorder; I67.9 Cerebrovascular disease, unspecified; F41.1 Generalized anxiety disorder; E78.5 Hyperlipidemia, unspecified; E03.9 Hypothyroidism, unspecified; F17.210 Nicotine dependence, cigarettes, uncomplicated; L60.2 Onychogryphosis; B35.1 Tinea unguium; E66.9 Obesity, unspecified; B34.9 Viral infection, unspecified; G45.9 Transient cerebral ischemic attack, unspecified; Z71.6 Tobacco abuse counseling; Z86.73 Personal history of transient ischemic attack (TIA), and cerebral infarction without residual deficits; Z90.49 Acquired absence of other specified parts of digestive tract; Z82.49 Family history of ischemic heart disease and other diseases of the circulatory system; Z80.3 Family history of malignant neoplasm of breast; Z68.30 Body mass index [BMI] 30.0-30.9, adult; Z79.899 Other long term (current) drug therapy

== ENCOUNTER 2019-09-06 22:01 | Inpatient (IN) | payer OTHER ==
[~2019-09-06] VITALS: Ht 160 cm; Wt 73.7 kg
[~2019-09-06 22:01] MED LIST changes: +BUSPAR15 MG PO; +BUSPIRONE30 MG PO; +PRENATAL VITAM1 EAC3 PO; +Synthroid,Levo25 MCG PO; +TAMIFLU 75MG CA75 MG PO; +VENLAFAXINE HYD75 M3 PO; +ZITHROMAX250 MG PO
[2019-09-06 22:02] VITALS: BP 90/66
[2019-09-06 22:27] LABS: BASO % 0.5 % (0.0-1.0); EOS # 0.1 10*3/uL (0.0-0.4); EOS % 1.7 % (1.0-4.0); HEMATOCRIT 45.2 % (37.0-47.0); HEMOGLOBIN 14.9 g/dl (12.0-16.0); LYMPH # 3.2 10*3/uL (1.3-4.4); LYMPH % 43.1 % (27.0-41.0); MEAN CELL VOLUME 91.7 fl (81.0-99.0); MEAN CORPUSCULAR HGB 30.2 pg (27.0-31.0); MONO % 12.8 % (3.0-9.0); NEUT # 3.1 10*3/uL (2.3-7.9); NEUT % 41.6 % (47.0-73.0); PLATELET COUNT AUTOMATED 403 10*3/uL (130-400); RED BLOOD COUNT 4.93 10*6/uL (4.10-5.10); RED CELL DISTRI WIDTH 14.5 % (0-14.5); WHITE BLOOD COUNT 7.5 10*3/uL (4.8-10.8)
[2019-09-06 22:40] LABS: ACT PARTIAL THROMBO TIME 32.8 SECONDS (20.0-32.1)
[2019-09-06 22:45] LABS: ALBUMIN 3.2 gm/dl (3.1-4.5); ALKALINE PHOSPHATASE 87 U/L (45-117); BUN 9 mg/dl (7-24); CHLORIDE 103 mmol/L (98-107); CREATININE 0.74 mg/dL (0.55-1.02); POTASSIUM 3.6 mmol/L (3.5-5.1); SGOT/AST 6 IU/L (3-35); SGPT/ALT 14 U/L (12-78); SODIUM 135 mmol/L (136-145); TOTAL PROTEIN 7.4 gm/dL (6.4-8.2)
[2019-09-06 22:52] LABS: TROPONIN I < 0.015 ng/ml (<0.045)
[2019-09-06 23:30] VITALS: BP 148/64
[2019-09-07 01:13] VITALS: BP 91/56
[2019-09-07 02:13] LABS: ABG BASE EXCESS 3.8 mmol/L (-2.0-2.0); ARTERIAL BLOOD GAS PH 7.39 (7.35-7.45)
[2019-09-07 08:53] LABS: BASO % 0.7 % (0.0-1.0); EOS # 0.1 10*3/uL (0.0-0.4); EOS % 1.7 % (1.0-4.0); HEMATOCRIT 44.8 % (37.0-47.0); HEMOGLOBIN 14.5 g/dl (12.0-16.0); LYMPH # 1.6 10*3/uL (1.3-4.4); LYMPH % 34.9 % (27.0-41.0); MEAN CELL VOLUME 93.1 fl (81.0-99.0); MEAN CORPUSCULAR HGB 30.1 pg (27.0-31.0); MEAN CORPUSCULAR HGB CONC 32.4 g/dl (33.0-37.0); MEAN PLATELET VOLUME 9.2 fl (9.6-12.3); MONO # 0.7 10*3/uL (0.1-1.0); MONO % 14.6 % (3.0-9.0); NEUT # 2.2 10*3/uL (2.3-7.9); NEUT % 47.9 % (47.0-73.0); PLATELET COUNT AUTOMATED 370 10*3/uL (130-400); RED BLOOD COUNT 4.81 10*6/uL (4.10-5.10); RED CELL DISTRI WIDTH 14.7 % (0-14.5); WHITE BLOOD COUNT 4.6 10*3/uL (4.8-10.8)
[2019-09-07 09:14] LABS: BUN 8 mg/dl (7-24); CHLORIDE 105 mmol/L (98-107); CREATININE 0.55 mg/dL (0.55-1.02); PHOSPHOROUS 4.4 mg/dL (2.5-4.9); POTASSIUM 3.7 mmol/L (3.5-5.1); SODIUM 137 mmol/L (136-145)
[2019-09-07 12:00] VITALS: BP 145/86
[2019-09-07 15:58] VITALS: BP 111/83
[2019-09-07 20:00] VITALS: BP 132/75
[2019-09-08] VITALS: BP 120/65
[2019-09-08 08:00] VITALS: BP 119/70
[2019-09-08 12:00] VITALS: BP 140/76
[2019-09-08] MEDS ORDERED: MUCINEX ER600 MG PO (13:36)
[2019-09-08] MEDS ORDERED: ZITHROMAX TRI-500 M1 PO (13:36)
== END 2019-09-08 14:43 | disposition home or self-care (01) | DRG 134 ==
LOC: ED 22:01 → EDHOLD 09-07 01:01 → 4E 09-07 01:01
PROVIDERS: Emergency Medicine; Student in an Organized Health Care Education/Training Program; ADMIT Family Medicine
DX: I26.99 Other pulmonary embolism without acute cor pulmonale (principal); J96.22 Acute and chronic respiratory failure with hypercapnia; J44.1 Chronic obstructive pulmonary disease with (acute) exacerbation; J96.01 Acute respiratory failure with hypoxia; F17.210 Nicotine dependence, cigarettes, uncomplicated; E87.2 Acidosis; D47.3 Essential (hemorrhagic) thrombocythemia; E87.1 Hypo-osmolality and hyponatremia; E44.0 Moderate protein-calorie malnutrition; Z68.28 Body mass index [BMI] 28.0-28.9, adult; M19.90 Unspecified osteoarthritis, unspecified site; K21.9 Gastro-esophageal reflux disease without esophagitis; N31.9 Neuromuscular dysfunction of bladder, unspecified; E55.9 Vitamin D deficiency, unspecified; F31.9 Bipolar disorder, unspecified; F41.9 Anxiety disorder, unspecified; E03.9 Hypothyroidism, unspecified; I50.32 Chronic diastolic (congestive) heart failure; Z53.20 Procedure and treatment not carried out because of patient's decision for unspecified reasons; Z71.6 Tobacco abuse counseling; Z79.899 Other long term (current) drug therapy; Z86.73 Personal history of transient ischemic attack (TIA), and cerebral infarction without residual deficits; Z90.49 Acquired absence of other specified parts of digestive tract; Z82.49 Family history of ischemic heart disease and other diseases of the circulatory system; Z80.3 Family history of malignant neoplasm of breast

== ENCOUNTER 2019-09-11 17:08 | Inpatient (IN) | payer OTHER ==
[~2019-09-11] VITALS: Ht 160 cm; Wt 77.2 kg
[~2019-09-11 17:08] MED LIST changes: +ZITHROMAX TRI-500 M1 PO
[2019-09-11 17:13] VITALS: BP 127/65
[2019-09-11 17:44] VITALS: BP 127/65
[2019-09-11 18:26] LABS: BASO % 0.6 % (0.0-1.0); EOS # 0.1 10*3/uL (0.0-0.4); EOS % 1.9 % (1.0-4.0); HEMATOCRIT 46.4 % (37.0-47.0); HEMOGLOBIN 15.5 g/dl (12.0-16.0); LYMPH # 2.5 10*3/uL (1.3-4.4); LYMPH % 38.8 % (27.0-41.0); MEAN CELL VOLUME 92.1 fl (81.0-99.0); MEAN CORPUSCULAR HGB 30.8 pg (27.0-31.0); MEAN CORPUSCULAR HGB CONC 33.4 g/dl (33.0-37.0); MEAN PLATELET VOLUME 8.7 fl (9.6-12.3); MONO # 0.7 10*3/uL (0.1-1.0); MONO % 11.2 % (3.0-9.0); NEUT % 47.2 % (47.0-73.0); PLATELET COUNT AUTOMATED 381 10*3/uL (130-400); RED BLOOD COUNT 5.04 10*6/uL (4.10-5.10); RED CELL DISTRI WIDTH 14.7 % (0-14.5); WHITE BLOOD COUNT 6.4 10*3/uL (4.8-10.8)
[2019-09-11 18:36] LABS: ACT PARTIAL THROMBO TIME 32.1 SECONDS (20.0-32.1)
[2019-09-11 18:45] LABS: ALBUMIN 2.9 gm/dl (3.1-4.5); ALKALINE PHOSPHATASE 81 U/L (45-117); BUN 6 mg/dl (7-24); CHLORIDE 105 mmol/L (98-107); CREATININE 0.69 mg/dL (0.55-1.02); LIPASE 57 U/L (73-393); POTASSIUM 3.1 mmol/L (3.5-5.1); SGOT/AST 12 IU/L (3-35); SGPT/ALT 19 U/L (12-78); SODIUM 141 mmol/L (136-145); TOTAL PROTEIN 6.7 gm/dL (6.4-8.2)
[2019-09-11 18:48] LABS: TROPONIN I < 0.015 ng/ml (<0.045)
[2019-09-11 21:03] VITALS: BP 116/76
[2019-09-11 21:52] VITALS: BP 126/69
[2019-09-11 22:10] VITALS: BP 130/84
[2019-09-12] VITALS: BP 124/81
[2019-09-12 07:12] LABS: BUN 6 mg/dl (7-24); CHLORIDE 107 mmol/L (98-107); CREATININE 0.67 mg/dL (0.55-1.02); PHOSPHOROUS 3.2 mg/dL (2.5-4.9); POTASSIUM 3.4 mmol/L (3.5-5.1); SODIUM 142 mmol/L (136-145)
[2019-09-12 08:00] VITALS: BP 135/86
== END 2019-09-12 10:45 | disposition home health service (06) | DRG 140 ==
LOC: ED 17:08 → 4E 20:17 → EDHOLD 20:17 → 4E 21:11
PROVIDERS: Physician Assistant; Student in an Organized Health Care Education/Training Program; ADMIT Internal Medicine
DX: J44.1 Chronic obstructive pulmonary disease with (acute) exacerbation (principal); R65.10 Systemic inflammatory response syndrome (SIRS) of non-infectious origin without acute organ dysfunction; E44.0 Moderate protein-calorie malnutrition; E87.6 Hypokalemia; F17.210 Nicotine dependence, cigarettes, uncomplicated; R73.9 Hyperglycemia, unspecified; R06.82 Tachypnea, not elsewhere classified; M19.90 Unspecified osteoarthritis, unspecified site; K21.9 Gastro-esophageal reflux disease without esophagitis; N31.9 Neuromuscular dysfunction of bladder, unspecified; E55.9 Vitamin D deficiency, unspecified; F31.9 Bipolar disorder, unspecified; F40.01 Agoraphobia with panic disorder; J44.9 Chronic obstructive pulmonary disease, unspecified; F41.9 Anxiety disorder, unspecified; E87.5 Hyperkalemia; E66.01 Morbid (severe) obesity due to excess calories; I50.30 Unspecified diastolic (congestive) heart failure; E87.2 Acidosis; I50.32 Chronic diastolic (congestive) heart failure; Z86.73 Personal history of transient ischemic attack (TIA), and cerebral infarction without residual deficits; Z90.49 Acquired absence of other specified parts of digestive tract; Z78.9 Other specified health status; Z71.6 Tobacco abuse counseling; Z82.49 Family history of ischemic heart disease and other diseases of the circulatory system; Z79.899 Other long term (current) drug therapy; Z68.28 Body mass index [BMI] 28.0-28.9, adult; Z79.2 Long term (current) use of antibiotics; Z80.3 Family history of malignant neoplasm of breast

== ENCOUNTER 2020-02-25 16:53 | Emergency (ER) | payer OTHER ==
[~2020-02-25] VITALS: Ht 162.5 cm; Wt 73.9 kg
[2020-02-25 18:04] LABS: CLARITY CLEAR (CLEAR); COLOR ORANGE (YELLOW)
[2020-02-25 18:05] LABS: BILIRUBIN NEGATIVE; BLOOD NEGATIVE (NEGATIVE); GLUCOSE NEGATIVE; KETONE NEGATIVE; LEUKO ESTERASE TRACE (NEGATIVE); NITRITE NEGATIVE (NEGATIVE); PH 8.5 (4.5-8.0); UROBILINOGEN 0.2 E.U./dl (0.0-1.0)
[2020-02-25 18:10] LABS: BACTERIA 1+; MUCOUS 1+
[2020-02-25 18:26] LABS: BASO % 0.7 % (0.0-1.0); EOS # 0.2 10*3/uL (0.0-0.4); EOS % 2.9 % (1.0-4.0); HEMATOCRIT 53.1 % (37.0-47.0); LYMPH # 1.2 10*3/uL (1.3-4.4); LYMPH % 19.8 % (27.0-41.0); MEAN CELL VOLUME 89.1 fl (81.0-99.0); MEAN CORPUSCULAR HGB CONC 31.5 g/dl (33.0-37.0); MEAN PLATELET VOLUME 9.1 fl (9.6-12.3); MONO # 0.7 10*3/uL (0.1-1.0); MONO % 12.5 % (3.0-9.0); NEUT # 3.7 10*3/uL (2.3-7.9); NEUT % 63.8 % (47.0-73.0); PLATELET COUNT AUTOMATED 322 10*3/uL (130-400); RED BLOOD COUNT 5.96 10*6/uL (4.10-5.10); RED CELL DISTRI WIDTH 15.2 % (0-14.5); WHITE BLOOD COUNT 5.9 10*3/uL (4.8-10.8)
[2020-02-25 18:45] LABS: ALBUMIN 2.9 gm/dl (3.1-4.5); ALKALINE PHOSPHATASE 81 U/L (45-117); BUN 7 mg/dl (7-24); CHLORIDE 102 mmol/L (98-107); CREATININE 0.47 mg/dL (0.55-1.02); LIPASE 35 U/L (73-393); POTASSIUM 3.3 mmol/L (3.5-5.1); SGOT/AST 19 IU/L (3-35); SGPT/ALT 24 U/L (12-78); SODIUM 137 mmol/L (136-145); TOTAL PROTEIN 7.8 gm/dL (6.4-8.2)
[2020-02-25] MEDS ORDERED: LEVAQUIN750 M1 PO (21:50)
== END 2020-02-25 23:30 | disposition short-term general hospital (02) ==
LOC: ED 16:53
PROVIDERS: Physician Assistant
DX: R30.0 Dysuria (principal); F41.9 Anxiety disorder, unspecified; K21.9 Gastro-esophageal reflux disease without esophagitis; J44.9 Chronic obstructive pulmonary disease, unspecified; F31.9 Bipolar disorder, unspecified; F17.200 Nicotine dependence, unspecified, uncomplicated; Z79.899 Other long term (current) drug therapy; Z79.2 Long term (current) use of antibiotics

== ENCOUNTER → 2020-05-01 | Outpatient (CLI) | payer OTHER ==
[2020-05-01 11:27] LABS: BASO % 0.6 % (0.0-1.0); EOS # 0.1 10*3/uL (0.0-0.4); EOS % 1.9 % (1.0-4.0); HEMATOCRIT 49.1 % (37.0-47.0); LYMPH # 2.1 10*3/uL (1.3-4.4); LYMPH % 30.7 % (27.0-41.0); MEAN CELL VOLUME 86.9 fl (81.0-99.0); MEAN CORPUSCULAR HGB 28.3 pg (27.0-31.0); MEAN CORPUSCULAR HGB CONC 32.6 g/dl (33.0-37.0); MEAN PLATELET VOLUME 8.5 fl (9.6-12.3); MONO # 0.7 10*3/uL (0.1-1.0); MONO % 9.8 % (3.0-9.0); NEUT # 3.9 10*3/uL (2.3-7.9); NEUT % 56.7 % (47.0-73.0); PLATELET COUNT AUTOMATED 358 10*3/uL (130-400); RED BLOOD COUNT 5.65 10*6/uL (4.10-5.10); RED CELL DISTRI WIDTH 16.4 % (0-14.5); WHITE BLOOD COUNT 6.9 10*3/uL (4.8-10.8)
[2020-05-01 11:37] LABS: BUN 15 mg/dl (7-24); CHLORIDE 104 mmol/L (98-107); CREATININE 0.58 mg/dL (0.55-1.02); POTASSIUM 4.3 mmol/L (3.5-5.1); SODIUM 139 mmol/L (136-145)
== END | disposition home or self-care (01) ==
LOC: RESCLI 00:53
PROVIDERS: ATTEND Internal Medicine Nephrology
DX: E78.5 Hyperlipidemia, unspecified (principal); F31.9 Bipolar disorder, unspecified; K21.9 Gastro-esophageal reflux disease without esophagitis; E53.8 Deficiency of other specified B group vitamins; M17.12 Unilateral primary osteoarthritis, left knee; E55.9 Vitamin D deficiency, unspecified; F41.9 Anxiety disorder, unspecified; F32.9 Major depressive disorder, single episode, unspecified; G40.909 Epilepsy, unspecified, not intractable, without status epilepticus; G89.29 Other chronic pain; J44.9 Chronic obstructive pulmonary disease, unspecified; E03.9 Hypothyroidism, unspecified; N32.81 Overactive bladder; I10 Essential (primary) hypertension; Z79.899 Other long term (current) drug therapy; Z98.890 Other specified postprocedural states; Z23 Encounter for immunization

== ENCOUNTER 2020-06-10 10:02 | Emergency (ER) | payer OTHER ==
[~2020-06-10] VITALS: Ht 162.5 cm; Wt 72.6 kg
[2020-06-10 10:55] LABS: BASO % 0.3 % (0.0-1.0); EOS # 0.2 10*3/uL (0.0-0.4); EOS % 1.6 % (1.0-4.0); HEMATOCRIT 46.9 % (37.0-47.0); LYMPH # 1.8 10*3/uL (1.3-4.4); MEAN CELL VOLUME 91.1 fl (81.0-99.0); MEAN CORPUSCULAR HGB 29.3 pg (27.0-31.0); MEAN CORPUSCULAR HGB CONC 32.2 g/dl (33.0-37.0); MEAN PLATELET VOLUME 8.4 fl (9.6-12.3); MONO # 0.8 10*3/uL (0.1-1.0); MONO % 8.6 % (3.0-9.0); NEUT # 6.4 10*3/uL (2.3-7.9); NEUT % 69.1 % (47.0-73.0); PLATELET COUNT AUTOMATED 355 10*3/uL (130-400); RED BLOOD COUNT 5.15 10*6/uL (4.10-5.10); RED CELL DISTRI WIDTH 15.5 % (0-14.5); WHITE BLOOD COUNT 9.2 10*3/uL (4.8-10.8)
[2020-06-10 11:17] LABS: ALBUMIN 3.2 gm/dl (3.1-4.5); ALKALINE PHOSPHATASE 90 U/L (45-117); BUN 8 mg/dl (7-24); CHLORIDE 105 mmol/L (98-107); POTASSIUM 4.3 mmol/L (3.5-5.1); SGOT/AST 8 IU/L (3-35); SGPT/ALT 11 U/L (12-78); SODIUM 137 mmol/L (136-145); TOTAL PROTEIN 7.2 gm/dL (6.4-8.2)
[2020-06-10 11:24] LABS: TROPONIN I < 0.015 ng/ml (<0.045)
[2020-06-10 11:35] LABS: BILIRUBIN Negative (Negative); BLOOD Negative (Negative); CLARITY Clear (Clear); COLOR Yellow (Yellow); GLUCOSE Negative (Negative); KETONE Negative (Negative); LEUKO ESTERASE Negative (Negative); NITRITE Negative (Negative); UROBILINOGEN 0.2 E.U./dl (0.0-1.0)
[2020-06-10 11:43] LABS: RBC 0-2 rbc/hpf (0-2)
== END 2020-06-10 14:54 | disposition home or self-care (01) ==
LOC: ED 10:02
PROVIDERS: Internal Medicine
DX: R07.89 Other chest pain (principal); R07.81 Pleurodynia; W18.39XA Other fall on same level, initial encounter; Y93.89 Activity, other specified; Y92.89 Other specified places as the place of occurrence of the external cause; Y99.8 Other external cause status

== ENCOUNTER 2020-08-18 14:26 | Inpatient (IN) | payer OTHER ==
[~2020-08-18] VITALS: Ht 160 cm; Wt 79.0 kg
[2020-08-18 14:38] VITALS: BP 176/101
[2020-08-18 14:58] LABS: BASO # 0.1 10*3/uL (0.0-0.1); BASO % 0.7 % (0.0-1.0); EOS % 0.3 % (1.0-4.0); HEMATOCRIT 53.5 % (37.0-47.0); LYMPH # 2.2 10*3/uL (1.3-4.4); LYMPH % 32.2 % (27.0-41.0); MEAN CELL VOLUME 90.4 fl (81.0-99.0); MEAN CORPUSCULAR HGB 29.9 pg (27.0-31.0); MEAN CORPUSCULAR HGB CONC 33.1 g/dl (33.0-37.0); MEAN PLATELET VOLUME 8.3 fl (9.6-12.3); MONO # 0.4 10*3/uL (0.1-1.0); NEUT # 4.1 10*3/uL (2.3-7.9); NEUT % 60.5 % (47.0-73.0); PLATELET COUNT AUTOMATED 427 10*3/uL (130-400); RED BLOOD COUNT 5.92 10*6/uL (4.10-5.10); RED CELL DISTRI WIDTH 12.8 % (0-14.5); WHITE BLOOD COUNT 6.8 10*3/uL (4.8-10.8)
[2020-08-18 15:09] LABS: ACT PARTIAL THROMBO TIME 31.1 SECONDS (20.0-32.1)
[2020-08-18 15:14] LABS: ALBUMIN 3.5 gm/dl (3.1-4.5); ALKALINE PHOSPHATASE 131 U/L (45-117); BUN 7 mg/dl (7-24); CHLORIDE 100 mmol/L (98-107); CREATININE 0.67 mg/dL (0.55-1.02); LIPASE 65 U/L (73-393); POTASSIUM 4.4 mmol/L (3.5-5.1); SGOT/AST 9 IU/L (3-35); SGPT/ALT 15 U/L (12-78); SODIUM 133 mmol/L (136-145); TOTAL PROTEIN 8.4 gm/dL (6.4-8.2)
[2020-08-18 15:15] LABS: TROPONIN I < 0.015 ng/ml (<0.045)
[2020-08-18 17:08] VITALS: BP 143/89
[2020-08-19] VITALS (17 sets, daily range): BP systolic 101–150; BP diastolic 52–93
[2020-08-19 00:54] LABS: URINE AMPHETAMINES < 1000 (1000ng/ml); URINE BARBITURATES < 200 (200ng/ml); URINE BENZODIAZEPINES < 200 (200ng/ml); URINE CANNABINOIDS (THC) < 50 (50ng/ml); URINE COCAINE < 300 (300ng/ml); URINE METHADONE < 300 (300ng/ml); URINE OPIATES > 300 (300ng/ml); URINE PHENCYCLIDINE < 25 (25ng/ml)
[2020-08-19 05:30] LABS: ALBUMIN 3.4 gm/dl (3.1-4.5); ALKALINE PHOSPHATASE 116 U/L (45-117); BUN 16 mg/dl (7-24); CHLORIDE 104 mmol/L (98-107); CHOLESTEROL 225 mg/dL (<200); CREATININE 0.62 mg/dL (0.55-1.02); HDL CHOLESTEROL 77 mg/dl (40-60); LDL CHOLESTEROL 128 mg/dL (9-159); SGOT/AST 15 IU/L (3-35); SGPT/ALT 15 U/L (12-78); SODIUM 136 mmol/L (136-145); TOTAL PROTEIN 7.9 gm/dL (6.4-8.2); TRIGLYCERIDES 98 mg/dl (<150); VLDL CHOLESTEROL 20 mg/dL (6-40)
[2020-08-19 06:31] LABS: BASO % 0.6 % (0.0-1.0); HEMATOCRIT 51.7 % (37.0-47.0); LYMPH # 1.8 10*3/uL (1.3-4.4); MEAN CELL VOLUME 89.9 fl (81.0-99.0); MEAN CORPUSCULAR HGB 29.6 pg (27.0-31.0); MEAN CORPUSCULAR HGB CONC 32.9 g/dl (33.0-37.0); MEAN PLATELET VOLUME 8.8 fl (9.6-12.3); MONO # 0.6 10*3/uL (0.1-1.0); MONO % 8.7 % (3.0-9.0); NEUT # 3.9 10*3/uL (2.3-7.9); NEUT % 62.4 % (47.0-73.0); PLATELET COUNT AUTOMATED 477 10*3/uL (130-400); RED BLOOD COUNT 5.75 10*6/uL (4.10-5.10); RED CELL DISTRI WIDTH 13.1 % (0-14.5); WHITE BLOOD COUNT 6.3 10*3/uL (4.8-10.8)
[2020-08-20] VITALS: BP 134/77
[2020-08-20 06:41] LABS: BASO % 0.5 % (0.0-1.0); EOS % 0.1 % (1.0-4.0); HEMATOCRIT 50.2 % (37.0-47.0); LYMPH # 2.5 10*3/uL (1.3-4.4); MEAN CELL VOLUME 91.3 fl (81.0-99.0); MEAN CORPUSCULAR HGB CONC 32.9 g/dl (33.0-37.0); MEAN PLATELET VOLUME 8.6 fl (9.6-12.3); MONO % 10.8 % (3.0-9.0); NEUT # 5.3 10*3/uL (2.3-7.9); NEUT % 60.3 % (47.0-73.0); PLATELET COUNT AUTOMATED 404 10*3/uL (130-400); RED CELL DISTRI WIDTH 13.2 % (0-14.5); WHITE BLOOD COUNT 8.8 10*3/uL (4.8-10.8)
[2020-08-20 07:18] LABS: ALBUMIN 3.2 gm/dl (3.1-4.5); BUN 15 mg/dl (7-24); CHLORIDE 105 mmol/L (98-107); CREATININE 0.65 mg/dL (0.55-1.02); POTASSIUM 3.5 mmol/L (3.5-5.1); SGOT/AST 19 IU/L (3-35); SGPT/ALT 15 U/L (12-78); SODIUM 138 mmol/L (136-145); TOTAL PROTEIN 7.5 gm/dL (6.4-8.2)
[2020-08-20 07:19] LABS: ALKALINE PHOSPHATASE 103 U/L (45-117)
[2020-08-20 08:00] VITALS: BP 122/82
[2020-08-20 12:00] VITALS: BP 129/78
[2020-08-20] MEDS ORDERED: XARE20MG PO (13:58)
[2020-08-20] MEDS ORDERED: PREDNISONE10 MG PO (13:58)
[2020-08-20] MEDS ORDERED: LEVOFLOXACIN500 MG PO (13:58)
[2020-08-20] MEDS ORDERED: CARDIZEM CD120 M2 PO (13:58)
== END 2020-08-20 14:40 | disposition home or self-care (01) | DRG 140 ==
LOC: ED 14:26 → 5E 17:30 → EDHOLD 17:30 → 5E 08-19 10:54
PROVIDERS: Emergency Medicine; Internal Medicine; ADMIT Internal Medicine; ATTEND Internal Medicine
PROC: 0HBRXZZ Excision of Toe Nail, External Approach (ICD-10-PCS; principal; 2020-08-20)
PROC: 0HBRXZZ Excision of Toe Nail, External Approach (ICD-10-PCS; 2020-08-20)
PROC: 0HBRXZZ Excision of Toe Nail, External Approach (ICD-10-PCS; 2020-08-20)
PROC: 0HBRXZZ Excision of Toe Nail, External Approach (ICD-10-PCS; 2020-08-20)
PROC: 0HBRXZZ Excision of Toe Nail, External Approach (ICD-10-PCS; 2020-08-20)
PROC: 0HBRXZZ Excision of Toe Nail, External Approach (ICD-10-PCS; 2020-08-20)
PROC: 0HBRXZZ Excision of Toe Nail, External Approach (ICD-10-PCS; 2020-08-20)
PROC: 0HBRXZZ Excision of Toe Nail, External Approach (ICD-10-PCS; 2020-08-20)
PROC: 0HBRXZZ Excision of Toe Nail, External Approach (ICD-10-PCS; 2020-08-20)
PROC: 0HBRXZZ Excision of Toe Nail, External Approach (ICD-10-PCS; 2020-08-20)
DX: J44.1 Chronic obstructive pulmonary disease with (acute) exacerbation (principal); I16.0 Hypertensive urgency; F41.0 Panic disorder [episodic paroxysmal anxiety]; E87.1 Hypo-osmolality and hyponatremia; D47.3 Essential (hemorrhagic) thrombocythemia; E87.2 Acidosis; M19.90 Unspecified osteoarthritis, unspecified site; K21.9 Gastro-esophageal reflux disease without esophagitis; E55.9 Vitamin D deficiency, unspecified; F31.9 Bipolar disorder, unspecified; I50.32 Chronic diastolic (congestive) heart failure; F41.9 Anxiety disorder, unspecified; E66.01 Morbid (severe) obesity due to excess calories; R73.9 Hyperglycemia, unspecified; F17.210 Nicotine dependence, cigarettes, uncomplicated; M89.49 Other hypertrophic osteoarthropathy, multiple sites; J96.11 Chronic respiratory failure with hypoxia; E03.9 Hypothyroidism, unspecified; I48.91 Unspecified atrial fibrillation; Z90.49 Acquired absence of other specified parts of digestive tract; Z82.49 Family history of ischemic heart disease and other diseases of the circulatory system; Z80.3 Family history of malignant neoplasm of breast; Z86.73 Personal history of transient ischemic attack (TIA), and cerebral infarction without residual deficits; Z68.36 Body mass index [BMI] 36.0-36.9, adult

== ENCOUNTER → 2020-08-26 | Outpatient (CLI) | payer OTHER ==
[~2020-08-26] MED LIST changes: +CARDIZEM CD120 M2 PO; +LEVOFLOXACIN500 MG PO; +XARE20MG PO
== END | disposition home or self-care (01) ==
LOC: RESCLI 01:46
PROVIDERS: ATTEND Student in an Organized Health Care Education/Training Program
DX: J44.9 Chronic obstructive pulmonary disease, unspecified (principal); I48.0 Paroxysmal atrial fibrillation; N39.3 Stress incontinence (female) (male); N32.81 Overactive bladder; F17.210 Nicotine dependence, cigarettes, uncomplicated; Z12.4 Encounter for screening for malignant neoplasm of cervix; Z12.11 Encounter for screening for malignant neoplasm of colon; Z12.39 Encounter for other screening for malignant neoplasm of breast; Z71.6 Tobacco abuse counseling; Z79.82 Long term (current) use of aspirin; Z79.899 Other long term (current) drug therapy; Z98.890 Other specified postprocedural states

== ENCOUNTER 2021-04-20 10:42 | Emergency (ER) | payer OTHER ==
[~2021-04-20] VITALS: Ht 162.5 cm; Wt 85.3 kg
[2021-04-20 11:31] LABS: BASO # 0.1 10*3/uL (0.0-0.1); EOS # 0.1 10*3/uL (0.0-0.4); EOS % 1.1 % (1.0-4.0); HEMATOCRIT 52.6 % (37.0-47.0); LYMPH # 2.5 10*3/uL (1.3-4.4); LYMPH % 34.5 % (27.0-41.0); MEAN CELL VOLUME 91.3 fl (81.0-99.0); MEAN CORPUSCULAR HGB 29.3 pg (27.0-31.0); MEAN CORPUSCULAR HGB CONC 32.1 g/dl (33.0-37.0); MEAN PLATELET VOLUME 8.7 fl (9.6-12.3); MONO # 0.8 10*3/uL (0.1-1.0); MONO % 11.3 % (3.0-9.0); NEUT # 3.8 10*3/uL (2.3-7.9); NEUT % 51.8 % (47.0-73.0); PLATELET COUNT AUTOMATED 403 10*3/uL (130-400); RED BLOOD COUNT 5.76 10*6/uL (4.10-5.10); RED CELL DISTRI WIDTH 13.5 % (0-14.5); WHITE BLOOD COUNT 7.3 10*3/uL (4.8-10.8)
[2021-04-20 11:48] LABS: ALBUMIN 3.2 gm/dl (3.1-4.5); ALKALINE PHOSPHATASE 95 U/L (45-117); BUN 13 mg/dl (7-24); CHLORIDE 105 mmol/L (98-107); CREATININE 1.14 mg/dL (0.55-1.02); POTASSIUM 4.8 mmol/L (3.5-5.1); SGOT/AST 15 IU/L (3-35); SGPT/ALT 18 U/L (12-78); SODIUM 137 mmol/L (136-145); TOTAL PROTEIN 7.1 gm/dL (6.4-8.2)
[2021-04-20 11:49] LABS: TROPONIN I < 0.015 ng/ml (<0.045)
[2021-04-20 12:20] LABS: INTERNATIONAL NORM RATIO 1.1 (2.0-3.5)
[2021-04-20 12:31] LABS: ACT PARTIAL THROMBO TIME > 139.0 SECONDS (20.0-32.1)
== END 2021-04-20 11:34 | disposition short-term general hospital (02) ==
LOC: ED 10:42
PROVIDERS: Emergency Medicine
DX: I21.9 Acute myocardial infarction, unspecified (principal); F17.210 Nicotine dependence, cigarettes, uncomplicated; Z79.899 Other long term (current) drug therapy

== ENCOUNTER 2021-04-26 09:42 | Emergency (ER) | payer OTHER ==
[~2021-04-26] VITALS: Ht 162.5 cm; Wt 90.7 kg
[2021-04-26 10:39] LABS: BASO # 0.1 10*3/uL (0.0-0.1); BASO % 1.1 % (0.0-1.0); EOS # 0.1 10*3/uL (0.0-0.4); EOS % 1.5 % (1.0-4.0); HEMATOCRIT 49.7 % (37.0-47.0); LYMPH # 1.1 10*3/uL (1.3-4.4); LYMPH % 20.1 % (27.0-41.0); MEAN CELL VOLUME 89.9 fl (81.0-99.0); MEAN CORPUSCULAR HGB 29.8 pg (27.0-31.0); MEAN CORPUSCULAR HGB CONC 33.2 g/dl (33.0-37.0); MEAN PLATELET VOLUME 8.8 fl (9.6-12.3); MONO # 0.5 10*3/uL (0.1-1.0); MONO % 9.6 % (3.0-9.0); NEUT # 3.7 10*3/uL (2.3-7.9); NEUT % 67.5 % (47.0-73.0); PLATELET COUNT AUTOMATED 349 10*3/uL (130-400); RED BLOOD COUNT 5.53 10*6/uL (4.10-5.10); RED CELL DISTRI WIDTH 13.4 % (0-14.5); WHITE BLOOD COUNT 5.4 10*3/uL (4.8-10.8)
[2021-04-26 10:50] LABS: ACT PARTIAL THROMBO TIME 35.9 SECONDS (20.0-32.1)
[2021-04-26 10:57] LABS: ALBUMIN 3.2 gm/dl (3.1-4.5); ALKALINE PHOSPHATASE 100 U/L (45-117); BUN 13 mg/dl (7-24); CHLORIDE 107 mmol/L (98-107); CREATININE 0.83 mg/dL (0.55-1.02); POTASSIUM 3.8 mmol/L (3.5-5.1); SGOT/AST 13 IU/L (3-35); SGPT/ALT 20 U/L (12-78); SODIUM 139 mmol/L (136-145); TOTAL PROTEIN 7.4 gm/dL (6.4-8.2); TROPONIN I 0.031 ng/ml (<0.045)
== END 2021-04-26 12:18 | disposition home or self-care (01) ==
LOC: ED 09:42
PROVIDERS: Emergency Medicine
DX: F41.9 Anxiety disorder, unspecified (principal); J44.9 Chronic obstructive pulmonary disease, unspecified; K21.9 Gastro-esophageal reflux disease without esophagitis; E66.9 Obesity, unspecified; M19.90 Unspecified osteoarthritis, unspecified site; F17.210 Nicotine dependence, cigarettes, uncomplicated; Z79.899 Other long term (current) drug therapy

== ENCOUNTER 2021-06-24 16:18 | Emergency (ER) | payer OTHER ==
[~2021-06-24] VITALS: Ht 162.5 cm; Wt 80.3 kg
== END 2021-06-24 17:36 | disposition left against medical advice (07) ==
LOC: ED 16:18
DX: Z53.21 Procedure and treatment not carried out due to patient leaving prior to being seen by health care provider (principal)

== ENCOUNTER 2021-10-28 13:02 | Inpatient (IN) | payer OTHER ==
[~2021-10-28] VITALS: Ht 162.6 cm; Wt 86.9 kg
[~2021-10-28 13:02] MED LIST changes: +ATARAX,VISTARIL50 MG PO; +ATIVAN1 MG PO; +CARDIZEM CD300 MG PO; +DIVALPROEX SOD500 M1 PO; +DULOXETINE HCL30 MG PO; +LATU40TA2 PO; +NYAMYC15 GM T; +VITAMIN D350 MC2 PO
[2021-10-28 13:15] VITALS: BP 109/75
[2021-10-28 17:23] LABS: HEMATOCRIT 49.3 % (37.0-47.0); MEAN CELL VOLUME 90.6 fl (81.0-99.0); MEAN CORPUSCULAR HGB CONC 33.1 g/dl (33.0-37.0); MEAN PLATELET VOLUME 8.6 fl (9.6-12.3); PLATELET COUNT AUTOMATED 325 10*3/uL (130-400); RED BLOOD COUNT 5.44 10*6/uL (4.10-5.10); RED CELL DISTRI WIDTH 15.3 % (0-14.5); WHITE BLOOD COUNT 12.7 10*3/uL (4.8-10.8)
[2021-10-28 17:24] LABS: MANUAL DIFF REFLEX YES
[2021-10-28] MEDS ORDERED: GENTLE LAXATIVE10 MG R (17:29)
[2021-10-28] MEDS ORDERED: VITAMIN D32400 UNIT/ MC (17:32)
[2021-10-28] MEDS ORDERED: FLEET ENEMA 13133 ML R (17:34)
[2021-10-28] MEDS ORDERED: OXYBUTYNIN5 MG PO (17:36)
[2021-10-28] MEDS ORDERED: MILK OF MA2400 MG/10 PO (17:37)
[2021-10-28 17:45] LABS: ALKALINE PHOSPHATASE 74 U/L (45-117); BUN 12 mg/dl (7-24); CHLORIDE 103 mmol/L (98-107); CREATININE 0.68 mg/dL (0.55-1.02); POTASSIUM 3.7 mmol/L (3.5-5.1); SGOT/AST 10 IU/L (3-35); SGPT/ALT 12 U/L (12-78); SODIUM 137 mmol/L (136-145); TOTAL PROTEIN 7.6 gm/dL (6.4-8.2)
[2021-10-28 17:59] LABS: ATYPICAL LYMPHS 1 % (0-0); PLATELET SUFFICIENCY NORMAL (NORMAL); TOTAL CELLS COUNTED 100 #CELLS
[2021-10-28 18:01] LABS: VACUOLATION OF NEUTROPHILS SLIGHT
[2021-10-28 18:43] LABS: BILIRUBIN Negative (Negative); BLOOD Negative (Negative); CLARITY Clear (Clear); COLOR Yellow (Yellow); GLUCOSE Negative (Negative); KETONE Negative (Negative); LEUKO ESTERASE Trace (Negative); NITRITE Negative (Negative); PH 6.5 (4.5-8.0)
[2021-10-28 18:52] LABS: URINE AMPHETAMINES < 1000 (1000ng/ml); URINE BARBITURATES < 200 (200ng/ml); URINE BENZODIAZEPINES < 200 (200ng/ml); URINE CANNABINOIDS (THC) < 50 (50ng/ml); URINE COCAINE < 300 (300ng/ml); URINE METHADONE < 300 (300ng/ml); URINE OPIATES < 300 (300ng/ml)
[2021-10-28 18:55] LABS: URINE PHENCYCLIDINE < 25 (25ng/ml)
[2021-10-28 18:59] LABS: INTERNATIONAL NORM RATIO 1.1 (2.0-3.5)
[2021-10-28 19:11] LABS: ETHYL ALCOHOL < 3.0 mg/dl (<3)
[2021-10-28 19:19] LABS: BACTERIA TRACE
[2021-10-28 21:54] VITALS: BP 114/67
[2021-10-28 21:58] VITALS: BP 114/67
[2021-10-28 22:47] LABS: ABG BASE EXCESS 1.7 mmol/L (-2.0-2.0); ARTERIAL BLOOD GAS PH 7.348 (7.35-7.45); ARTERIAL BLOOD GAS PO2 68.3 (80-90)
[2021-10-29] VITALS (7 sets, daily range): BP systolic 90–139; BP diastolic 57–82
[2021-10-29 06:32] LABS: ACT PARTIAL THROMBO TIME 31.6 SECONDS (20.0-32.1); BASO % 0.5 % (0.0-1.0); EOS % 0.5 % (1.0-4.0); LYMPH # 1.2 10*3/uL (1.3-4.4); LYMPH % 14.2 % (27.0-41.0); MEAN CELL VOLUME 90.7 fl (81.0-99.0); MEAN CORPUSCULAR HGB 30.4 pg (27.0-31.0); MEAN CORPUSCULAR HGB CONC 33.5 g/dl (33.0-37.0); MONO % 11.4 % (3.0-9.0); NEUT # 6.3 10*3/uL (2.3-7.9); NEUT % 73.1 % (47.0-73.0); PLATELET COUNT AUTOMATED 306 10*3/uL (130-400); RED BLOOD COUNT 5.07 10*6/uL (4.10-5.10); RED CELL DISTRI WIDTH 15.2 % (0-14.5); WHITE BLOOD COUNT 8.7 10*3/uL (4.8-10.8)
[2021-10-29 06:50] LABS: ALKALINE PHOSPHATASE 64 U/L (45-117); BUN 11 mg/dl (7-24); CHLORIDE 105 mmol/L (98-107); CREATININE 0.55 mg/dL (0.55-1.02); POTASSIUM 3.6 mmol/L (3.5-5.1); SGOT/AST 9 IU/L (3-35); SGPT/ALT 11 U/L (12-78); SODIUM 140 mmol/L (136-145)
[2021-10-29] MEDS ORDERED: DITROPAN XL5 MG PO (09:59)
[2021-10-29] MEDS ORDERED: VISTARIL25 MG PO (10:04)
[2021-10-29] MEDS ORDERED: ATIVAN1 MG PO (13:49)
[2021-10-29] MEDS ORDERED: KLONOPIN2 M1 PO (13:50)
[2021-10-30] VITALS: BP 147/87
[2021-10-30 06:18] LABS: BUN 19 mg/dl (7-24); CHLORIDE 102 mmol/L (98-107); CREATININE 0.58 mg/dL (0.55-1.02); POTASSIUM 3.5 mmol/L (3.5-5.1); SODIUM 138 mmol/L (136-145)
[2021-10-30 06:23] LABS: BASO % 0.1 % (0.0-1.0); HEMATOCRIT 44.9 % (37.0-47.0); LYMPH # 1.1 10*3/uL (1.3-4.4); MEAN CELL VOLUME 90.7 fl (81.0-99.0); MEAN CORPUSCULAR HGB 29.7 pg (27.0-31.0); MEAN CORPUSCULAR HGB CONC 32.7 g/dl (33.0-37.0); MEAN PLATELET VOLUME 9.3 fl (9.6-12.3); MONO # 0.9 10*3/uL (0.1-1.0); MONO % 7.9 % (3.0-9.0); NEUT # 9.8 10*3/uL (2.3-7.9); NEUT % 82.6 % (47.0-73.0); PLATELET COUNT AUTOMATED 341 10*3/uL (130-400); RED BLOOD COUNT 4.95 10*6/uL (4.10-5.10); RED CELL DISTRI WIDTH 14.7 % (0-14.5); WHITE BLOOD COUNT 11.9 10*3/uL (4.8-10.8)
[2021-10-30 08:00] VITALS: BP 120/68
[2021-10-30 12:00] VITALS: BP 126/77
[2021-10-30 16:00] VITALS: BP 124/64
[2021-10-30 20:00] VITALS: BP 130/72
[2021-10-31] VITALS: BP 133/65
[2021-10-31 05:40] LABS: BUN 19 mg/dl (7-24); CHLORIDE 103 mmol/L (98-107); CREATININE 0.57 mg/dL (0.55-1.02); POTASSIUM 3.4 mmol/L (3.5-5.1); SODIUM 139 mmol/L (136-145)
[2021-10-31 06:10] LABS: BASO % 0.1 % (0.0-1.0); HEMATOCRIT 40.8 % (37.0-47.0); LYMPH % 11.6 % (27.0-41.0); MEAN CELL VOLUME 91.7 fl (81.0-99.0); MEAN CORPUSCULAR HGB 30.1 pg (27.0-31.0); MEAN CORPUSCULAR HGB CONC 32.8 g/dl (33.0-37.0); MEAN PLATELET VOLUME 9.4 fl (9.6-12.3); MONO # 0.6 10*3/uL (0.1-1.0); MONO % 6.4 % (3.0-9.0); NEUT # 7.3 10*3/uL (2.3-7.9); NEUT % 81.5 % (47.0-73.0); PLATELET COUNT AUTOMATED 357 10*3/uL (130-400); RED BLOOD COUNT 4.45 10*6/uL (4.10-5.10); RED CELL DISTRI WIDTH 14.6 % (0-14.5); WHITE BLOOD COUNT 8.9 10*3/uL (4.8-10.8)
[2021-10-31 08:00] VITALS: BP 110/67
[2021-10-31 12:00] VITALS: BP 126/77
[2021-10-31 16:00] VITALS: BP 119/63
[2021-10-31 20:00] VITALS: BP 117/69
[2021-11-01] VITALS: BP 125/69
[2021-11-01 05:30] LABS: BUN 19 mg/dl (7-24); CHLORIDE 101 mmol/L (98-107); CREATININE 0.64 mg/dL (0.55-1.02); POTASSIUM 3.4 mmol/L (3.5-5.1); SODIUM 137 mmol/L (136-145)
[2021-11-01 06:05] LABS: BASO % 0.1 % (0.0-1.0); HEMATOCRIT 42.5 % (37.0-47.0); LYMPH # 0.7 10*3/uL (1.3-4.4); LYMPH % 9.8 % (27.0-41.0); MEAN CELL VOLUME 92.8 fl (81.0-99.0); MEAN CORPUSCULAR HGB 30.6 pg (27.0-31.0); MEAN CORPUSCULAR HGB CONC 32.9 g/dl (33.0-37.0); MEAN PLATELET VOLUME 9.6 fl (9.6-12.3); MONO # 0.3 10*3/uL (0.1-1.0); MONO % 4.7 % (3.0-9.0); NEUT # 6.2 10*3/uL (2.3-7.9); NEUT % 85.1 % (47.0-73.0); PLATELET COUNT AUTOMATED 377 10*3/uL (130-400); RED BLOOD COUNT 4.58 10*6/uL (4.10-5.10); RED CELL DISTRI WIDTH 14.2 % (0-14.5); WHITE BLOOD COUNT 7.3 10*3/uL (4.8-10.8)
[2021-11-01 08:00] VITALS: BP 120/65
[2021-11-01 12:00] VITALS: BP 101/70
[2021-11-01 16:00] VITALS: BP 105/53
[2021-11-01 20:00] VITALS: BP 131/67
[2021-11-02] VITALS: BP 129/75
[2021-11-02 06:31] LABS: BASO % 0.3 % (0.0-1.0); HEMATOCRIT 45.3 % (37.0-47.0); LYMPH # 1.8 10*3/uL (1.3-4.4); LYMPH % 19.1 % (27.0-41.0); MEAN CELL VOLUME 91.9 fl (81.0-99.0); MEAN CORPUSCULAR HGB 30.8 pg (27.0-31.0); MEAN CORPUSCULAR HGB CONC 33.6 g/dl (33.0-37.0); MONO # 0.9 10*3/uL (0.1-1.0); MONO % 9.3 % (3.0-9.0); NEUT # 6.7 10*3/uL (2.3-7.9); NEUT % 70.1 % (47.0-73.0); PLATELET COUNT AUTOMATED 396 10*3/uL (130-400); RED BLOOD COUNT 4.93 10*6/uL (4.10-5.10); RED CELL DISTRI WIDTH 14.2 % (0-14.5); WHITE BLOOD COUNT 9.6 10*3/uL (4.8-10.8)
[2021-11-02 06:48] LABS: BUN 20 mg/dl (7-24); CHLORIDE 100 mmol/L (98-107); CREATININE 0.59 mg/dL (0.55-1.02); POTASSIUM 3.3 mmol/L (3.5-5.1); SODIUM 139 mmol/L (136-145)
[2021-11-02 08:00] VITALS: BP 124/72
[2021-11-02 12:00] VITALS: BP 109/60
[2021-11-02] MEDS ORDERED: OXYBUTYNIN5 MG PO (13:11)
[2021-11-02] MEDS ORDERED: PREDNISONE10 MG PO (13:11)
[2021-11-02] MEDS ORDERED: MUCINEX ER600 MG PO (13:11)
[2021-11-02] MEDS ORDERED: KLONOPIN2 M1 PO (13:11)
[2021-11-02] MEDS ORDERED: LASIX40 MG PO (13:12)
[2021-11-02] MEDS ORDERED: AUGMENTIN 875-875 MG PO (13:13)
== END 2021-11-02 15:38 | DRG 720 ==
LOC: ED 13:02 → EDHOLD 21:07 → 4E 21:07 → EDHOLD 21:52 → 4E 10-29 13:53
PROVIDERS: Hospitalist; Internal Medicine; Physical Therapist; Physician Assistant; ADMIT Student in an Organized Health Care Education/Training Program; ATTEND Student in an Organized Health Care Education/Training Program
PROC: 5A09357 Assistance with Respiratory Ventilation, Less than 24 Consecutive Hours, Continuous Positive Airway Pressure (ICD-10-PCS; principal; 2021-10-29)
PROC: BD1BYZZ Fluoroscopy of Mouth/Oropharynx using Other Contrast (ICD-10-PCS; 2021-10-29)
DX: A41.9 Sepsis, unspecified organism (principal); J69.0 Pneumonitis due to inhalation of food and vomit; G93.41 Metabolic encephalopathy; J96.22 Acute and chronic respiratory failure with hypercapnia; D75.1 Secondary polycythemia; G45.9 Transient cerebral ischemic attack, unspecified; I50.33 Acute on chronic diastolic (congestive) heart failure; Z68.32 Body mass index [BMI] 32.0-32.9, adult; Z20.822 Contact with and (suspected) exposure to COVID-19; J44.1 Chronic obstructive pulmonary disease with (acute) exacerbation; E44.0 Moderate protein-calorie malnutrition; M19.90 Unspecified osteoarthritis, unspecified site; F17.200 Nicotine dependence, unspecified, uncomplicated; I71.2 Thoracic aortic aneurysm, without rupture; E87.6 Hypokalemia; K21.9 Gastro-esophageal reflux disease without esophagitis; N31.9 Neuromuscular dysfunction of bladder, unspecified; E55.9 Vitamin D deficiency, unspecified; E11.65 Type 2 diabetes mellitus with hyperglycemia; F31.9 Bipolar disorder, unspecified; J44.9 Chronic obstructive pulmonary disease, unspecified; F41.9 Anxiety disorder, unspecified; I48.91 Unspecified atrial fibrillation; Z90.49 Acquired absence of other specified parts of digestive tract; Z86.73 Personal history of transient ischemic attack (TIA), and cerebral infarction without residual deficits; Z82.49 Family history of ischemic heart disease and other diseases of the circulatory system; Z80.3 Family history of malignant neoplasm of breast

== ENCOUNTER 2022-01-15 22:42 | Inpatient (IN) | payer OTHER ==
[~2022-01-15] VITALS: Ht 160 cm; Wt 92.7 kg
[~2022-01-15 22:42] MED LIST changes: +AUGMENTIN 875-875 MG PO; +DITROPAN XL5 MG PO; +FLEET ENEMA 13133 ML R; +GENTLE LAXATIVE10 MG R; +KlonoPIN PO; +LASIX40 MG PO; +MILK OF MA2400 MG/10 PO; +OXYBUTYNIN5 MG PO; +VISTARIL25 MG PO; +VITAMIN D32400 UNIT/ MC
[2022-01-15 23:03] VITALS: BP 95/64
[2022-01-15 23:05] LABS: HEMATOCRIT 41.1 % (37.0-47.0); MEAN CELL VOLUME 92.8 fl (81.0-99.0); MEAN CORPUSCULAR HGB 29.1 pg (27.0-31.0); MEAN CORPUSCULAR HGB CONC 31.4 g/dl (33.0-37.0); PLATELET COUNT AUTOMATED 353 10*3/uL (130-400); RED BLOOD COUNT 4.43 10*6/uL (4.10-5.10); RED CELL DISTRI WIDTH 14.6 % (0-14.5); WHITE BLOOD COUNT 3.8 10*3/uL (4.8-10.8)
[2022-01-15 23:25] LABS: MANUAL DIFF REFLEX YES
[2022-01-15 23:27] LABS: ALKALINE PHOSPHATASE 55 U/L (45-117); BUN 10 mg/dl (7-24); CHLORIDE 97 mmol/L (98-107); CREATININE 0.56 mg/dL (0.55-1.02); POTASSIUM 3.8 mmol/L (3.5-5.1); SGOT/AST 12 IU/L (3-35); SGPT/ALT 10 U/L (12-78); SODIUM 135 mmol/L (136-145); TOTAL PROTEIN 6.5 gm/dL (6.4-8.2)
[2022-01-15 23:30] VITALS: BP 114/76
[2022-01-15 23:35] LABS: BASOPHILS 1 % (0-1); PLATELET SUFFICIENCY NORMAL (NORMAL); POLYCHROMASIA SLIGHT; TOTAL CELLS COUNTED 100 #CELLS
[2022-01-16] VITALS (9 sets, daily range): BP systolic 97–144; BP diastolic 46–90
[2022-01-16] MEDS ORDERED: DIVALPROEX SOD250 MG PO (00:43)
[2022-01-16] MEDS ORDERED: INCRUSE ELLI62.5 MCG INH (00:45)
[2022-01-16] MEDS ORDERED: TYLENOL325 M1 PO (00:47)
[2022-01-16] MEDS ORDERED: XARE20MG PO (00:47)
[2022-01-16] MEDS ORDERED: ALBUTEROL0.63 MG/3 INH ×2 (00:50→00:51)
[2022-01-16 01:06] LABS: BILIRUBIN Negative (Negative); BLOOD Negative (Negative); CLARITY Clear (Clear); COLOR Yellow (Yellow); GLUCOSE Negative (Negative); KETONE Negative (Negative); LEUKO ESTERASE Negative (Negative); NITRITE Negative (Negative)
[2022-01-16 01:21] LABS: EPITHELIAL CELLS 0-2; RBC 0-2 rbc/hpf (0-2)
[2022-01-16] MEDS ORDERED: CALCIUM CARBON500 M3 PO (03:57)
[2022-01-16 04:11] LABS: ABG BASE EXCESS 6.5 mmol/L (-2.0-2.0); ARTERIAL BLOOD GAS PH 7.338 (7.35-7.45); ARTERIAL BLOOD GAS PO2 65.2 (80-90)
[2022-01-16 12:05] LABS: ABG BASE EXCESS 3.8 mmol/L (-2.0-2.0); ARTERIAL BLOOD GAS PH 7.346 (7.35-7.45); ARTERIAL BLOOD GAS PO2 77.1 (80-90)
[2022-01-17] VITALS: BP 135/77
[2022-01-17 05:45] LABS: BUN 15 mg/dl (7-24); CHLORIDE 104 mmol/L (98-107); CREATININE 0.65 mg/dL (0.55-1.02); POTASSIUM 4.2 mmol/L (3.5-5.1); SODIUM 143 mmol/L (136-145)
[2022-01-17 06:00] LABS: HEMATOCRIT 46.2 % (37.0-47.0); LYMPH # 0.8 10*3/uL (1.3-4.4); LYMPH % 23.4 % (27.0-41.0); MEAN CELL VOLUME 94.7 fl (81.0-99.0); MEAN CORPUSCULAR HGB 29.3 pg (27.0-31.0); MEAN PLATELET VOLUME 8.5 fl (9.6-12.3); MONO # 0.4 10*3/uL (0.1-1.0); MONO % 12.7 % (3.0-9.0); NEUT # 2.2 10*3/uL (2.3-7.9); NEUT % 63.3 % (47.0-73.0); PLATELET COUNT AUTOMATED 437 10*3/uL (130-400); RED BLOOD COUNT 4.88 10*6/uL (4.10-5.10); RED CELL DISTRI WIDTH 14.6 % (0-14.5); WHITE BLOOD COUNT 3.5 10*3/uL (4.8-10.8)
[2022-01-17 08:00] VITALS: BP 118/58
[2022-01-17 12:00] VITALS: BP 121/50
[2022-01-17 16:00] VITALS: BP 121/73
[2022-01-17 20:00] VITALS: BP 114/68
[2022-01-18] VITALS: BP 138/68
[2022-01-18 06:21] LABS: BASO % 0.1 % (0.0-1.0); HEMATOCRIT 44.6 % (37.0-47.0); LYMPH # 1.1 10*3/uL (1.3-4.4); LYMPH % 13.2 % (27.0-41.0); MEAN CELL VOLUME 96.3 fl (81.0-99.0); MEAN CORPUSCULAR HGB 29.6 pg (27.0-31.0); MEAN CORPUSCULAR HGB CONC 30.7 g/dl (33.0-37.0); MEAN PLATELET VOLUME 8.6 fl (9.6-12.3); MONO # 0.6 10*3/uL (0.1-1.0); MONO % 7.6 % (3.0-9.0); NEUT # 6.3 10*3/uL (2.3-7.9); NEUT % 78.6 % (47.0-73.0); PLATELET COUNT AUTOMATED 478 10*3/uL (130-400); RED BLOOD COUNT 4.63 10*6/uL (4.10-5.10); RED CELL DISTRI WIDTH 14.8 % (0-14.5)
[2022-01-18 06:44] LABS: BUN 17 mg/dl (7-24); CHLORIDE 103 mmol/L (98-107); CREATININE 0.52 mg/dL (0.55-1.02); SODIUM 143 mmol/L (136-145)
[2022-01-18 08:50] VITALS: BP 115/64
[2022-01-18 12:00] VITALS: BP 103/59
[2022-01-18 16:00] VITALS: BP 130/63
[2022-01-18 20:00] VITALS: BP 117/64
[2022-01-18 22:00] VITALS: BP 117/64
[2022-01-19] VITALS: BP 136/64
[2022-01-19 05:05] LABS: BUN 18 mg/dl (7-24); CHLORIDE 102 mmol/L (98-107); CREATININE 0.57 mg/dL (0.55-1.02); POTASSIUM 3.8 mmol/L (3.5-5.1); SODIUM 142 mmol/L (136-145)
[2022-01-19 06:13] LABS: HEMATOCRIT 44.3 % (37.0-47.0); LYMPH % 16.7 % (27.0-41.0); MEAN CELL VOLUME 95.9 fl (81.0-99.0); MEAN CORPUSCULAR HGB 29.7 pg (27.0-31.0); MEAN CORPUSCULAR HGB CONC 30.9 g/dl (33.0-37.0); MEAN PLATELET VOLUME 8.9 fl (9.6-12.3); MONO # 0.3 10*3/uL (0.1-1.0); MONO % 4.9 % (3.0-9.0); NEUT # 4.8 10*3/uL (2.3-7.9); NEUT % 77.6 % (47.0-73.0); PLATELET COUNT AUTOMATED 462 10*3/uL (130-400); RED BLOOD COUNT 4.62 10*6/uL (4.10-5.10); RED CELL DISTRI WIDTH 14.6 % (0-14.5); WHITE BLOOD COUNT 6.2 10*3/uL (4.8-10.8)
[2022-01-19 08:00] VITALS: BP 133/65
[2022-01-19 12:00] VITALS: BP 122/59
[2022-01-19 16:00] VITALS: BP 129/54
[2022-01-19 20:00] VITALS: BP 132/68
[2022-01-20] VITALS: BP 128/66
[2022-01-20 07:00] LABS: HEMATOCRIT 43.3 % (37.0-47.0); LYMPH # 0.8 10*3/uL (1.3-4.4); LYMPH % 19.8 % (27.0-41.0); MEAN CELL VOLUME 93.5 fl (81.0-99.0); MEAN CORPUSCULAR HGB 29.6 pg (27.0-31.0); MEAN CORPUSCULAR HGB CONC 31.6 g/dl (33.0-37.0); MEAN PLATELET VOLUME 8.7 fl (9.6-12.3); MONO # 0.2 10*3/uL (0.1-1.0); MONO % 4.5 % (3.0-9.0); NEUT # 3.1 10*3/uL (2.3-7.9); NEUT % 74.3 % (47.0-73.0); PLATELET COUNT AUTOMATED 387 10*3/uL (130-400); RED BLOOD COUNT 4.63 10*6/uL (4.10-5.10); RED CELL DISTRI WIDTH 14.2 % (0-14.5); WHITE BLOOD COUNT 4.2 10*3/uL (4.8-10.8)
[2022-01-20 07:19] LABS: BUN 20 mg/dl (7-24); CHLORIDE 102 mmol/L (98-107); CREATININE 0.55 mg/dL (0.55-1.02); POTASSIUM 3.9 mmol/L (3.5-5.1); SODIUM 142 mmol/L (136-145)
[2022-01-20 08:00] VITALS: BP 131/75
[2022-01-20 12:00] VITALS: BP 130/67
[2022-01-20 16:00] VITALS: BP 156/76
[2022-01-20 18:00] VITALS: BP 156/76
[2022-01-20 20:00] VITALS: BP 157/83
[2022-01-21] VITALS: BP 160/80
[2022-01-21 06:33] LABS: BASO % 0.2 % (0.0-1.0); HEMATOCRIT 45.2 % (37.0-47.0); LYMPH # 0.9 10*3/uL (1.3-4.4); LYMPH % 16.4 % (27.0-41.0); MEAN CELL VOLUME 92.1 fl (81.0-99.0); MEAN CORPUSCULAR HGB 29.7 pg (27.0-31.0); MEAN CORPUSCULAR HGB CONC 32.3 g/dl (33.0-37.0); MEAN PLATELET VOLUME 8.6 fl (9.6-12.3); MONO # 0.4 10*3/uL (0.1-1.0); MONO % 6.4 % (3.0-9.0); NEUT # 4.3 10*3/uL (2.3-7.9); NEUT % 75.8 % (47.0-73.0); PLATELET COUNT AUTOMATED 423 10*3/uL (130-400); RED BLOOD COUNT 4.91 10*6/uL (4.10-5.10); RED CELL DISTRI WIDTH 13.8 % (0-14.5); WHITE BLOOD COUNT 5.6 10*3/uL (4.8-10.8)
[2022-01-21 06:51] LABS: BUN 18 mg/dl (7-24); CHLORIDE 100 mmol/L (98-107); CREATININE 0.57 mg/dL (0.55-1.02); SODIUM 139 mmol/L (136-145)
[2022-01-21 08:00] VITALS: BP 148/71
[2022-01-21 12:00] VITALS: BP 150/85
[2022-01-21 16:00] VITALS: BP 118/81
[2022-01-21 20:00] VITALS: BP 120/87
[2022-01-22] VITALS: BP 146/73
[2022-01-22 06:59] LABS: INTERNATIONAL NORM RATIO 1.2 (2.0-3.5)
[2022-01-22 07:05] LABS: ALKALINE PHOSPHATASE 70 U/L (45-117); BUN 19 mg/dl (7-24); CHLORIDE 98 mmol/L (98-107); CREATININE 0.64 mg/dL (0.55-1.02); SGOT/AST 6 IU/L (3-35); SGPT/ALT 28 U/L (12-78); SODIUM 135 mmol/L (136-145)
[2022-01-22 08:00] VITALS: BP 133/85
[2022-01-22] MEDS ORDERED: OXYGEN NAS (11:22)
[2022-01-22] MEDS ORDERED: FLORASTOR250 MG PO (11:22)
[2022-01-22] MEDS ORDERED: AUGMENTIN 500500 M1 PO (11:22)
== END 2022-01-22 14:03 | DRG 720 ==
LOC: ED 22:42 → 4E 01-16 02:49 → EDHOLD 01-16 02:49 → 5E 01-16 03:12 → 4E 01-18 08:40
PROVIDERS: Family Medicine; Internal Medicine; Nurse Practitioner Adult Health; Student in an Organized Health Care Education/Training Program; ADMIT Internal Medicine; ATTEND Internal Medicine
PROC: 5A09357 Assistance with Respiratory Ventilation, Less than 24 Consecutive Hours, Continuous Positive Airway Pressure (ICD-10-PCS; principal; 2022-01-16)
PROC: XW033E5 Introduction of Remdesivir Anti-infective into Peripheral Vein, Percutaneous Approach, New Technology Group 5 (ICD-10-PCS; 2022-01-18)
PROC: 5A09357 Assistance with Respiratory Ventilation, Less than 24 Consecutive Hours, Continuous Positive Airway Pressure (ICD-10-PCS; 2022-01-19)
PROC: 5A09357 Assistance with Respiratory Ventilation, Less than 24 Consecutive Hours, Continuous Positive Airway Pressure (ICD-10-PCS; 2022-01-20)
PROC: 5A09357 Assistance with Respiratory Ventilation, Less than 24 Consecutive Hours, Continuous Positive Airway Pressure (ICD-10-PCS; 2022-01-22)
DX: A41.9 Sepsis, unspecified organism (principal); U07.1 COVID-19; J69.0 Pneumonitis due to inhalation of food and vomit; J96.21 Acute and chronic respiratory failure with hypoxia; J44.1 Chronic obstructive pulmonary disease with (acute) exacerbation; K21.9 Gastro-esophageal reflux disease without esophagitis; I48.91 Unspecified atrial fibrillation; E43 Unspecified severe protein-calorie malnutrition; F31.9 Bipolar disorder, unspecified; E66.9 Obesity, unspecified; M19.90 Unspecified osteoarthritis, unspecified site; T17.998A Other foreign object in respiratory tract, part unspecified causing other injury, initial encounter; E87.1 Hypo-osmolality and hyponatremia; D72.819 Decreased white blood cell count, unspecified; F17.210 Nicotine dependence, cigarettes, uncomplicated; E55.9 Vitamin D deficiency, unspecified; X58.XXXA Exposure to other specified factors, initial encounter; Z90.49 Acquired absence of other specified parts of digestive tract; Z82.49 Family history of ischemic heart disease and other diseases of the circulatory system; Z80.3 Family history of malignant neoplasm of breast; F41.9 Anxiety disorder, unspecified; Y93.89 Activity, other specified; Y92.89 Other specified places as the place of occurrence of the external cause; Y99.8 Other external cause status; Z68.36 Body mass index [BMI] 36.0-36.9, adult; I50.30 Unspecified diastolic (congestive) heart failure

== ENCOUNTER 2022-05-09 00:09 | Emergency (ER) | payer MEDICAID ==
[~2022-05-09] VITALS: Wt 94.8 kg
[~2022-05-09 00:09] MED LIST changes: +ALBUTEROL0.63 MG/3 INH; +AUGMENTIN 500500 M1 PO; +CALCIUM CARBON500 M3 PO; +DIVALPROEX SOD250 MG PO; +FLORASTOR250 MG PO; +INCRUSE ELLI62.5 MCG INH; +OXYGEN NAS; +TYLENOL325 M1 PO
[2022-05-09 01:06] LABS: BASO % 0.5 % (0.0-1.0); EOS # 0.2 10*3/uL (0.0-0.4); EOS % 3.2 % (1.0-4.0); HEMATOCRIT 41.8 % (37.0-47.0); LYMPH # 1.9 10*3/uL (1.3-4.4); LYMPH % 30.2 % (27.0-41.0); MEAN CELL VOLUME 90.1 fl (81.0-99.0); MEAN CORPUSCULAR HGB 29.7 pg (27.0-31.0); MEAN PLATELET VOLUME 8.6 fl (9.6-12.3); MONO # 0.9 10*3/uL (0.1-1.0); MONO % 13.6 % (3.0-9.0); NEUT # 3.3 10*3/uL (2.3-7.9); NEUT % 52.3 % (47.0-73.0); PLATELET COUNT AUTOMATED 345 10*3/uL (130-400); RED BLOOD COUNT 4.64 10*6/uL (4.10-5.10); RED CELL DISTRI WIDTH 14.4 % (0-14.5); WHITE BLOOD COUNT 6.3 10*3/uL (4.8-10.8)
[2022-05-09 01:21] LABS: ALKALINE PHOSPHATASE 66 U/L (45-117); BUN 15 mg/dl (7-24); CHLORIDE 104 mmol/L (98-107); CREATININE 0.62 mg/dL (0.55-1.02); POTASSIUM 3.6 mmol/L (3.5-5.1); SGOT/AST 7 IU/L (3-35); SGPT/ALT 10 U/L (12-78); SODIUM 138 mmol/L (136-145); TOTAL PROTEIN 7.5 gm/dL (6.4-8.2)
[2022-05-09 01:45] LABS: BILIRUBIN Negative (Negative); BLOOD Negative (Negative); CLARITY Clear (Clear); COLOR Yellow (Yellow); GLUCOSE Negative (Negative); KETONE Negative (Negative); LEUKO ESTERASE Trace (Negative); NITRITE Negative (Negative); SPECIFIC GRAVITY 1.015 (1.001-1.030); UROBILINOGEN 0.2 E.U./dl (0.0-1.0)
[2022-05-09 02:08] LABS: EPITHELIAL CELLS 21-30
[2022-05-09] MEDS ORDERED: LEVOFLOXACIN750 M2 PO (03:21)
[2022-05-10] MEDS ORDERED: FUROSEMIDE40 MG PO (13:45)
[2022-05-10] MEDS ORDERED: DILTIAZEM 24HR300 MG PO (13:47)
[2022-05-10] MEDS ORDERED: XARELTO20 M1 PO (13:54)
[2022-05-14] MEDS ORDERED: RISPERIDONE1 MG PO (14:08)
[2022-05-14] MEDS ORDERED: LEVOFLOXACIN750 M2 PO (14:09)
[2022-05-14] MEDS ORDERED: VISTARIL IM (14:09)
== END 2022-05-09 04:36 ==
LOC: ED 00:09
PROVIDERS: Emergency Medicine
DX: J18.9 Pneumonia, unspecified organism (principal); I48.91 Unspecified atrial fibrillation; J44.9 Chronic obstructive pulmonary disease, unspecified; M19.90 Unspecified osteoarthritis, unspecified site; E66.9 Obesity, unspecified; K21.9 Gastro-esophageal reflux disease without esophagitis; Z79.899 Other long term (current) drug therapy; Z86.73 Personal history of transient ischemic attack (TIA), and cerebral infarction without residual deficits; Z90.49 Acquired absence of other specified parts of digestive tract; Z98.890 Other specified postprocedural states; Z87.891 Personal history of nicotine dependence

== ENCOUNTER 2022-11-01 18:50 | Inpatient (IN) | payer MEDICAID ==
[~2022-11-01] VITALS: Ht 162.5 cm; Wt 80.3 kg
[~2022-11-01 18:50] MED LIST changes: +B121000 MCG/1 IM; +BENZTROPINE MESY1 MG PO; +BENZTROPINE2 MG/2 M1 IM; +CLONAZEPAM0.5 M2 PO; +CLOZAPINE100 MG PO; +DILTIAZEM 24HR300 MG PO; +FUROSEMIDE40 MG PO; +INVEGA SUSTENN156 MG IM; +LEVOFLOXACIN750 M2 PO; +LORAZEPAM1 MG PO; +RISPERIDONE1 MG PO; +RIVASTIGMINE1 EAC2 T; +VISTARIL IM; +XARELTO20 M1 PO
[2022-11-01 18:57] VITALS: BP 170/54
[2022-11-01 19:42] LABS: BASO % 0.4 % (0.0-1.0); EOS % 0.1 % (1.0-4.0); HEMATOCRIT 47.3 % (37.0-47.0); LYMPH # 0.7 10*3/uL (1.3-4.4); LYMPH % 8.6 % (27.0-41.0); MEAN CELL VOLUME 88.4 fl (81.0-99.0); MEAN CORPUSCULAR HGB 29.2 pg (27.0-31.0); MEAN PLATELET VOLUME 8.9 fl (9.6-12.3); MONO # 0.5 10*3/uL (0.1-1.0); MONO % 5.8 % (3.0-9.0); NEUT # 6.8 10*3/uL (2.3-7.9); NEUT % 84.8 % (47.0-73.0); PLATELET COUNT AUTOMATED 394 10*3/uL (130-400); RED BLOOD COUNT 5.35 10*6/uL (4.10-5.10); RED CELL DISTRI WIDTH 13.8 % (0-14.5)
[2022-11-01 20:08] LABS: ALKALINE PHOSPHATASE 84 U/L (46-116); BUN 12 mg/dl (9-23); CHLORIDE 101 mmol/L (98-107); POTASSIUM 3.9 mmol/L (3.4-5.1); THYROID STIM HORMONE (HS) 1.308 uIU/ml (0.550-4.780); TOTAL PROTEIN 7.8 gm/dL (6.0-8.0)
[2022-11-01 20:10] LABS: SGPT/ALT < 7 U/L (10-49)
[2022-11-01 20:11] LABS: BILIRUBIN Negative (Negative); BLOOD Negative (Negative); CLARITY Clear (Clear); COLOR Yellow (Yellow); GLUCOSE 1+ (Negative); KETONE 1+ (Negative); LEUKO ESTERASE Negative (Negative); NITRITE Negative (Negative); SPECIFIC GRAVITY 1.025 (1.001-1.030); UROBILINOGEN 0.2 E.U./dl (0.0-1.0)
[2022-11-01 20:24] LABS: BACTERIA 1+; MUCOUS 2+; RBC 0-2 rbc/hpf (0-2)
[2022-11-01 21:14] VITALS: BP 166/85
[2022-11-01 23:57] VITALS: BP 137/80
[2022-11-02] VITALS (7 sets, daily range): BP systolic 96–129; BP diastolic 56–88
[2022-11-02] MEDS ORDERED: ATIVAN0.5 MG PO (02:45)
[2022-11-02] MEDS ORDERED: BENZTROPINE ME0.5 MG PO (02:46)
[2022-11-02] MEDS ORDERED: CLOZARIL50 MG PO (02:47)
[2022-11-02 05:37] LABS: ALKALINE PHOSPHATASE 76 U/L (46-116); BUN 12 mg/dl (9-23); CHLORIDE 104 mmol/L (98-107); CHOLESTEROL 165 mg/dL (<200); FREE T4 1.05 ng/dl (0.89-1.76); LDL CHOLESTEROL 109 mg/dL (9-159); POTASSIUM 3.6 mmol/L (3.4-5.1); THYROID STIM HORMONE (HS) 2.277 uIU/ml (0.550-4.780); TOTAL PROTEIN 7.1 gm/dL (6.0-8.0); TRIGLYCERIDES 65 mg/dl (<150)
[2022-11-02 05:49] LABS: SGPT/ALT < 7 U/L (10-49)
[2022-11-02 06:12] LABS: VITAMIN D, 25-HYDROXY 53.1 ng/mL (30-100)
[2022-11-02 06:15] LABS: ACT PARTIAL THROMBO TIME 53.2 SECONDS (20.0-32.1); INTERNATIONAL NORM RATIO 1.2 (2.0-3.5)
[2022-11-02 06:40] LABS: BASO % 0.4 % (0.0-1.0); EOS % 0.3 % (1.0-4.0); HEMATOCRIT 45.7 % (37.0-47.0); LYMPH # 1.8 10*3/uL (1.3-4.4); LYMPH % 22.1 % (27.0-41.0); MEAN CELL VOLUME 88.4 fl (81.0-99.0); MEAN CORPUSCULAR HGB CONC 32.8 g/dl (33.0-37.0); MEAN PLATELET VOLUME 9.3 fl (9.6-12.3); MONO # 0.9 10*3/uL (0.1-1.0); MONO % 11.2 % (3.0-9.0); NEUT # 5.2 10*3/uL (2.3-7.9); NEUT % 65.7 % (47.0-73.0); PLATELET COUNT AUTOMATED 424 10*3/uL (130-400); RED BLOOD COUNT 5.17 10*6/uL (4.10-5.10); RED CELL DISTRI WIDTH 14.1 % (0-14.5); WHITE BLOOD COUNT 7.9 10*3/uL (4.8-10.8)
[2022-11-02] MEDS ORDERED: BISACODYL10 MG R (11:41)
[2022-11-02] MEDS ORDERED: RIVASTIGMINE TAR6 M1 PO (11:44)
[2022-11-02] MEDS ORDERED: FLEET ENEMA EX230 M1 R (11:47)
[2022-11-02] MEDS ORDERED: MILK OF MA400 MG/5 M PO (11:48)
[2022-11-03] VITALS: BP 98/61
[2022-11-03 06:55] LABS: BASO # 0.1 10*3/uL (0.0-0.1); BASO % 0.8 % (0.0-1.0); EOS # 0.1 10*3/uL (0.0-0.4); EOS % 1.7 % (1.0-4.0); HEMATOCRIT 44.8 % (37.0-47.0); LYMPH # 2.3 10*3/uL (1.3-4.4); MEAN CELL VOLUME 89.1 fl (81.0-99.0); MEAN CORPUSCULAR HGB CONC 32.6 g/dl (33.0-37.0); MEAN PLATELET VOLUME 8.8 fl (9.6-12.3); MONO # 0.8 10*3/uL (0.1-1.0); MONO % 12.7 % (3.0-9.0); NEUT # 3.3 10*3/uL (2.3-7.9); NEUT % 49.5 % (47.0-73.0); PLATELET COUNT AUTOMATED 364 10*3/uL (130-400); RED BLOOD COUNT 5.03 10*6/uL (4.10-5.10); RED CELL DISTRI WIDTH 14.2 % (0-14.5); WHITE BLOOD COUNT 6.6 10*3/uL (4.8-10.8)
[2022-11-03 07:28] LABS: ALKALINE PHOSPHATASE 70 U/L (46-116); BUN 15 mg/dl (9-23); CHLORIDE 103 mmol/L (98-107); POTASSIUM 3.6 mmol/L (3.4-5.1); TOTAL PROTEIN 6.6 gm/dL (6.0-8.0)
[2022-11-03 07:52] LABS: SGPT/ALT < 7 U/L (10-49)
[2022-11-03 08:00] VITALS: BP 119/85
[2022-11-03] MEDS ORDERED: ASPIRIN ADULT L81 M2 PO (09:30)
[2022-11-03] MEDS ORDERED: OXYBUTYNIN5 MG PO (09:30)
[2022-11-03] MEDS ORDERED: LASIX20 MG PO (09:30)
[2022-11-03] MEDS ORDERED: K-TAB20 MEQ PO (09:32)
[2022-11-03 12:00] VITALS: BP 94/68
== END 2022-11-03 13:52 | DRG 201 ==
LOC: ED 18:50 → EDHOLD 11-02 00:11 → 5E 11-02 00:11
PROVIDERS: Internal Medicine; Student in an Organized Health Care Education/Training Program; ADMIT Internal Medicine; ATTEND Internal Medicine
DX: I49.8 Other specified cardiac arrhythmias (principal); I48.91 Unspecified atrial fibrillation; I50.33 Acute on chronic diastolic (congestive) heart failure; K21.9 Gastro-esophageal reflux disease without esophagitis; R73.9 Hyperglycemia, unspecified; E55.9 Vitamin D deficiency, unspecified; J44.9 Chronic obstructive pulmonary disease, unspecified; J96.11 Chronic respiratory failure with hypoxia; F25.0 Schizoaffective disorder, bipolar type; N39.498 Other specified urinary incontinence; J98.11 Atelectasis; F41.9 Anxiety disorder, unspecified; Z86.73 Personal history of transient ischemic attack (TIA), and cerebral infarction without residual deficits; Z90.49 Acquired absence of other specified parts of digestive tract; Z82.49 Family history of ischemic heart disease and other diseases of the circulatory system; Z79.1 Long term (current) use of non-steroidal anti-inflammatories (NSAID); Z88.8 Allergy status to other drugs, medicaments and biological substances; Z79.899 Other long term (current) drug therapy; Z79.51 Long term (current) use of inhaled steroids

== ENCOUNTER 2023-04-29 19:06 | Emergency (ER) | payer MEDICAID ==
[~2023-04-29] VITALS: Ht 165.1 cm; Wt 68.0 kg
[~2023-04-29 19:06] MED LIST changes: +ASPIRIN ADULT L81 M2 PO; +ATIVAN0.5 MG PO; +BENZTROPINE ME0.5 MG PO; +BISACODYL10 MG R; +CLOZARIL50 MG PO; +FLEET ENEMA EX230 M1 R; +K-TAB20 MEQ PO; +LASIX20 MG PO; +MILK OF MA400 MG/5 M PO; +RIVASTIGMINE TAR6 M1 PO
[2023-04-29 19:40] LABS: BASO % 0.3 % (0.0-1.0); EOS # 0.1 10*3/uL (0.0-0.4); EOS % 0.6 % (1.0-4.0); HEMATOCRIT 40.9 % (37.0-47.0); LYMPH # 1.9 10*3/uL (1.3-4.4); LYMPH % 18.2 % (27.0-41.0); MEAN CELL VOLUME 88.5 fl (81.0-99.0); MEAN CORPUSCULAR HGB 30.3 pg (27.0-31.0); MEAN CORPUSCULAR HGB CONC 34.2 g/dl (33.0-37.0); MEAN PLATELET VOLUME 8.9 fl (9.6-12.3); MONO # 1.2 10*3/uL (0.1-1.0); MONO % 12.1 % (3.0-9.0); NEUT % 68.4 % (47.0-73.0); PLATELET COUNT AUTOMATED 370 10*3/uL (130-400); RED BLOOD COUNT 4.62 10*6/uL (4.10-5.10); RED CELL DISTRI WIDTH 13.9 % (0-14.5); WHITE BLOOD COUNT 10.3 10*3/uL (4.8-10.8)
[2023-04-29 19:53] LABS: ACT PARTIAL THROMBO TIME 56.4 SECONDS (20.0-32.1); INTERNATIONAL NORM RATIO 1.4 (2.0-3.5)
[2023-04-29 20:11] LABS: ALKALINE PHOSPHATASE 75 U/L (46-116); BUN 12 mg/dl (9-23); CHLORIDE 105 mmol/L (98-107); LIPASE 23 U/L (12-53); POTASSIUM 3.5 mmol/L (3.4-5.1); SGPT/ALT < 7 U/L (5-49); TOTAL PROTEIN 6.3 gm/dL (6.0-8.0)
[2023-04-29 20:39] LABS: BILIRUBIN Negative (Negative); BLOOD Negative (Negative); CLARITY Cloudy (Clear); COLOR Yellow (Yellow); GLUCOSE Negative (Negative); KETONE Trace (Negative); LEUKO ESTERASE 1+ (Negative); NITRITE Positive (Negative); PH 5.5 (4.5-8.0)
[2023-04-29 20:58] LABS: BACTERIA 4+; WBC 21-30 wbc/hpf (0-5)
[2023-04-29] MEDS ORDERED: CIPRO500 MG PO ×4 (21:42→22:54)
== END 2023-04-29 22:24 ==
LOC: ED 19:06
PROVIDERS: Internal Medicine
DX: N39.0 Urinary tract infection, site not specified (principal); M25.552 Pain in left hip; I48.91 Unspecified atrial fibrillation; J44.9 Chronic obstructive pulmonary disease, unspecified; I50.9 Heart failure, unspecified; F17.200 Nicotine dependence, unspecified, uncomplicated; Z88.8 Allergy status to other drugs, medicaments and biological substances; Z79.899 Other long term (current) drug therapy; Z79.82 Long term (current) use of aspirin; Z98.890 Other specified postprocedural states; Z90.49 Acquired absence of other specified parts of digestive tract; W19.XXXA Unspecified fall, initial encounter; Y93.89 Activity, other specified; Y92.89 Other specified places as the place of occurrence of the external cause; Y99.8 Other external cause status

== ENCOUNTER 2025-06-09 21:04 | Inpatient (IN) | payer OTHER ==
[~2025-06-09] VITALS: Ht 162.6 cm; Wt 69.9 kg
[~2025-06-09 21:04] MED LIST changes: +CIPRO500 MG PO; +HOMEMED PO; +POLYTRIM 1000010 ML OPH; +TRINTELLIX20 MG PO; +VITAMIN D350 MCG PO; +VITAMIN E180 M1 PO
[2025-06-09 21:05] VITALS: BP 110/60
[2025-06-09 21:34] LABS: BASO # 0.0 10*3/uL (0.0-0.1); BASO % 0.8 % (0.0-1.0); EOS # 0.1 10*3/uL (0.0-0.4); EOS % 1.4 % (1.0-4.0); MEAN CELL VOLUME 90.6 fl (81.0-99.0); MEAN CORPUSCULAR HGB 29.4 pg (27.0-31.0); MEAN PLATELET VOLUME 9.0 fl (9.6-12.3); MONO # 0.7 10*3/uL (0.1-1.0); MONO % 14.3 % (3.0-9.0); NEUT # 2.2 10*3/uL (2.3-7.9); NEUT % 45.8 % (47.0-73.0); NUCLEATED RED BLOOD CELL 0.0 % (0.0-0.0); NUCLEATED RED BLOOD CELL 0.0 10*3/uL (0.0-0.0); PLATELET COUNT AUTOMATED 375 10*3/uL (130-400); RED CELL DISTRI WIDTH 13.4 % (0-14.5)
[2025-06-09 21:53] LABS: BUN 15 mg/dl (9-23)
[2025-06-09 21:58] LABS: BILIRUBIN Negative (Negative); BLOOD Negative (Negative); CLARITY Clear (Clear); COLOR Yellow (Yellow); KETONE Negative (Negative); LEUKO ESTERASE Negative (Negative); NITRITE Negative (Negative); PH 6.0 (4.5-8.0); SPECIFIC GRAVITY 1.020 (1.001-1.030); UROBILINOGEN 0.2 E.U./dl (0.0-1.0)
[2025-06-09 22:14] LABS: MUCOUS 1+
[2025-06-09] MEDS ORDERED: SODIUM CHLORIDE 0.9% 1,000 ML IV ONE (22:25)
[2025-06-09] MEDS ORDERED: INGREZZA80 MG PO (22:27)
[2025-06-10 00:46] VITALS: BP 132/57
[2025-06-10 06:25] VITALS: BP 124/68
[2025-06-10] MEDS ORDERED: LORazepam 1 MG TAB PO PRN (15:25)
[2025-06-10] MEDS ORDERED: MG-AL HYDROXIDE/SIMETICONE 30 ML UDC PO PRN (15:30)
[2025-06-10] MEDS ORDERED: ACETAMINOPHEN 325 MG TAB PO PRN (15:30)
[2025-06-10] MEDS ORDERED: Water, Sterile 10 ML VIAL IM PRN (15:30)
[2025-06-10] MEDS ORDERED: Menthol/Zinc Oxide 4 GM THIN T PRN (15:35)
[2025-06-10 16:05] VITALS: BP 130/75
[2025-06-10] MEDS ORDERED: RIVAROXABAN 20 MG TAB PO SCH (21:00)
[2025-06-10] MEDS ORDERED: CALCIUM (OSCAL) 500MG PO SCH (21:00)
[2025-06-10 21:15] VITALS: BP 117/69
[2025-06-11 06:28] LABS: BASO # 0.0 10*3/uL (0.0-0.1); BASO % 0.8 % (0.0-1.0); EOS # 0.0 10*3/uL (0.0-0.4); EOS % 0.8 % (1.0-4.0); MEAN CELL VOLUME 88.1 fl (81.0-99.0); MEAN CORPUSCULAR HGB 29.4 pg (27.0-31.0); MEAN PLATELET VOLUME 9.2 fl (9.6-12.3); MONO # 0.5 10*3/uL (0.1-1.0); MONO % 10.6 % (3.0-9.0); NEUT # 3.1 10*3/uL (2.3-7.9); NEUT % 65.1 % (47.0-73.0); NUCLEATED RED BLOOD CELL 0.0 % (0.0-0.0); NUCLEATED RED BLOOD CELL 0.0 10*3/uL (0.0-0.0); PLATELET COUNT AUTOMATED 381 10*3/uL (130-400); RED CELL DISTRI WIDTH 13.0 % (0-14.5)
[2025-06-11 06:53] LABS: BUN 17 mg/dl (9-23); LDL CHOLESTEROL 122 mg/dL (9-159)
[2025-06-11 06:57] LABS: SGPT/ALT < 7 U/L (5-49)
[2025-06-11 08:13] LABS: VITAMIN D, 25-HYDROXY 57.8 ng/mL (30-100)
[2025-06-11] MEDS ORDERED: ASPIRIN ENTERIC COATED 81 MG TAB PO SCH (09:00)
[2025-06-11] MEDS ORDERED: FUROSEMIDE 20 MG TAB PO SCH (09:00)
[2025-06-11] MEDS ORDERED: POTASSIUM CHLORIDE 20 MEQ TAB PO SCH (09:00)
[2025-06-11] MEDS ORDERED: VITAMIN E 400 IU CAP PO SCH (09:00)
[2025-06-11] MEDS ORDERED: PALIPERIDONE PALMITATE 156 MG INJECTION IM ONE (09:00)
[2025-06-11] MEDS ORDERED: Cholecalciferol 2,000 UNIT TABLET (50 MCG) PO SCH (09:00)
[2025-06-11 09:25] VITALS: BP 134/51
[2025-06-11] MEDS ORDERED: MED. FROM HOME 1 EACH EA PO SCH (14:55)
[2025-06-11 20:00] VITALS: BP 101/59
[2025-06-11] MEDS ORDERED: CARIPRAZINE HCL 1.5 MG CAPSULE PO SCH (21:00)
[2025-06-12 08:00] VITALS: BP 128/66
[2025-06-12] MEDS ORDERED: Rivastigmine Tartrate 4.6 MG/24 HR PATCH T SCH (09:00)
[2025-06-12 20:00] VITALS: BP 108/58
[2025-06-13 08:00] VITALS: BP 99/59
[2025-06-13 20:00] VITALS: BP 98/52
[2025-06-13] MEDS ORDERED: Mirtazapine 15 MG TAB PO SCH (21:00)
[2025-06-13] MEDS ORDERED: MED. FROM HOME 1 EACH EA PO SCH (21:00)
[2025-06-14 08:00] VITALS: BP 122/65
[2025-06-14] MEDS ORDERED: VITAMIN E 400 IU CAP PO SCH (09:00)
[2025-06-14] MEDS ORDERED: Rivastigmine Tartrate 9.5 MG/24 HR PATCH T SCH (09:00)
[2025-06-14 20:00] VITALS: BP 119/77
[2025-06-15 08:00] VITALS: BP 150/63
[2025-06-15 20:00] VITALS: BP 123/78
[2025-06-16 08:00] VITALS: BP 116/72
[2025-06-16 20:00] VITALS: BP 109/64
[2025-06-17 08:51] VITALS: BP 106/73
[2025-06-17 20:00] VITALS: BP 105/54
[2025-06-17] MEDS ORDERED: Pantoprazole Sodium 20 MG TAB PO SCH (21:30)
[2025-06-17] MEDS ORDERED: SUCRALFATE 1 GM TAB PO SCH (21:30)
[2025-06-17 21:41] VITALS: BP 128/66
[2025-06-17 22:04] LABS: BASO # 0.1 10*3/uL (0.0-0.1); BASO % 0.8 % (0.0-1.0); EOS # 0.1 10*3/uL (0.0-0.4); EOS % 2.0 % (1.0-4.0); MEAN CELL VOLUME 92.0 fl (81.0-99.0); MEAN CORPUSCULAR HGB 30.2 pg (27.0-31.0); MEAN PLATELET VOLUME 9.0 fl (9.6-12.3); MONO # 0.9 10*3/uL (0.1-1.0); MONO % 15.3 % (3.0-9.0); NEUT # 2.4 10*3/uL (2.3-7.9); NEUT % 40.3 % (47.0-73.0); NUCLEATED RED BLOOD CELL 0.0 % (0.0-0.0); NUCLEATED RED BLOOD CELL 0.0 10*3/uL (0.0-0.0); PLATELET COUNT AUTOMATED 318 10*3/uL (130-400); RED CELL DISTRI WIDTH 13.6 % (0-14.5)
[2025-06-17 23:09] LABS: BUN 25 mg/dl (9-23); SGPT/ALT 8 U/L (5-49)
[2025-06-18 02:03] LABS: BASO # 0.1 10*3/uL (0.0-0.1); BASO % 0.8 % (0.0-1.0); EOS # 0.1 10*3/uL (0.0-0.4); EOS % 1.2 % (1.0-4.0); MEAN CELL VOLUME 91.8 fl (81.0-99.0); MEAN CORPUSCULAR HGB 30.1 pg (27.0-31.0); MEAN PLATELET VOLUME 9.0 fl (9.6-12.3); MONO # 0.9 10*3/uL (0.1-1.0); MONO % 14.4 % (3.0-9.0); NEUT # 4.0 10*3/uL (2.3-7.9); NEUT % 60.8 % (47.0-73.0); NUCLEATED RED BLOOD CELL 0.0 % (0.0-0.0); NUCLEATED RED BLOOD CELL 0.0 10*3/uL (0.0-0.0); PLATELET COUNT AUTOMATED 314 10*3/uL (130-400); RED CELL DISTRI WIDTH 13.7 % (0-14.5)
[2025-06-18] MEDS ORDERED: REMERON15 M2 PO (02:12)
[2025-06-18] MEDS ORDERED: VRAYLAR1.5 MG PO (02:15)
[2025-06-18] MEDS ORDERED: ATIVAN1 MG PO (02:17)
[2025-06-18] MEDS ORDERED: VISTARIL25 MG PO (02:17)
[2025-06-18] MEDS ORDERED: AUVELITY ER 451 EACH PO (02:19)
[2025-06-18] MEDS ORDERED: RIVASTIGMINE 13.3 MG/24 HR TDM T SCH (09:00)
== END 2025-06-18 02:24 | disposition short-term general hospital (02) | DRG 751 ==
LOC: ED 21:04 → 3N 06-10 11:37
PROVIDERS: Internal Medicine; Student in an Organized Health Care Education/Training Program; ADMIT Psychiatry & Neurology Psychiatry; ATTEND Psychiatry & Neurology Psychiatry
PROC: GZHZZZZ Group Psychotherapy (ICD-10-PCS; principal; 2025-06-11)
PROC: GZ56ZZZ Individual Psychotherapy, Supportive (ICD-10-PCS; 2025-06-11)
DX: F33.2 Major depressive disorder, recurrent severe without psychotic features (principal); F25.0 Schizoaffective disorder, bipolar type; E44.0 Moderate protein-calorie malnutrition; J96.11 Chronic respiratory failure with hypoxia; G30.9 Alzheimer's disease, unspecified; I50.32 Chronic diastolic (congestive) heart failure; I48.91 Unspecified atrial fibrillation; J44.9 Chronic obstructive pulmonary disease, unspecified; K21.9 Gastro-esophageal reflux disease without esophagitis; R00.0 Tachycardia, unspecified; R80.9 Proteinuria, unspecified; R31.9 Hematuria, unspecified; R82.71 Bacteriuria; N31.9 Neuromuscular dysfunction of bladder, unspecified; E55.9 Vitamin D deficiency, unspecified; I71.20 Thoracic aortic aneurysm, without rupture, unspecified; F02.83 Dementia in other diseases classified elsewhere, unspecified severity, with mood disturbance; F02.84 Dementia in other diseases classified elsewhere, unspecified severity, with anxiety; F48.2 Pseudobulbar affect; Z88.8 Allergy status to other drugs, medicaments and biological substances; Z79.899 Other long term (current) drug therapy; Z79.01 Long term (current) use of anticoagulants; Z79.2 Long term (current) use of antibiotics; Z79.82 Long term (current) use of aspirin; Z90.49 Acquired absence of other specified parts of digestive tract; Z86.73 Personal history of transient ischemic attack (TIA), and cerebral infarction without residual deficits; Z82.49 Family history of ischemic heart disease and other diseases of the circulatory system; Z80.3 Family history of malignant neoplasm of breast; Z68.25 Body mass index [BMI] 25.0-25.9, adult

== ENCOUNTER 2025-06-18 02:17 | Inpatient (IN) | payer OTHER ==
[~2025-06-18] VITALS: Ht 165.1 cm; Wt 68.5 kg
[~2025-06-18 02:17] MED LIST changes: +INGREZZA80 MG PO; +REMERON15 M2 PO; +VRAYLAR1.5 MG PO
[2025-06-18] MEDS ORDERED: AUVELITY ER 451 EACH PO (02:19)
[2025-06-18] MEDS ORDERED: ACETAMINOPHEN 325 MG TAB PO PRN (02:25)
[2025-06-18] MEDS ORDERED: ACETAMINOPHEN 650 MG SUPP R PRN (02:25)
[2025-06-18] MEDS ORDERED: Ondansetron Hydrochloride 4 MG/2 ML VIAL IV PRN (02:25)
[2025-06-18 02:45] VITALS: BP 107/70
[2025-06-18 06:04] LABS: BASO # 0.0 10*3/uL (0.0-0.1); BASO % 0.5 % (0.0-1.0); EOS # 0.1 10*3/uL (0.0-0.4); EOS % 1.1 % (1.0-4.0); MEAN CELL VOLUME 92.0 fl (81.0-99.0); MEAN CORPUSCULAR HGB 29.5 pg (27.0-31.0); MEAN PLATELET VOLUME 9.7 fl (9.6-12.3); MONO # 0.6 10*3/uL (0.1-1.0); MONO % 11.7 % (3.0-9.0); NEUT # 3.5 10*3/uL (2.3-7.9); NEUT % 64.7 % (47.0-73.0); NUCLEATED RED BLOOD CELL 0.0 % (0.0-0.0); NUCLEATED RED BLOOD CELL 0.0 10*3/uL (0.0-0.0); PLATELET COUNT AUTOMATED 323 10*3/uL (130-400); RED CELL DISTRI WIDTH 13.7 % (0-14.5)
[2025-06-18 06:14] LABS: BUN 25 mg/dl (9-23)
[2025-06-18] MEDS ORDERED: SODIUM CHLORIDE 0.9% 1,000 ML IV ONE (07:00)
[2025-06-18 08:00] VITALS: BP 125/81
[2025-06-18] MEDS ORDERED: Cholecalciferol 2,000 UNIT TABLET (50 MCG) PO SCH (09:00)
[2025-06-18] MEDS ORDERED: NYSTATIN 500,000 UNITS/5 ML UDC PO SCH (10:00)
[2025-06-18] MEDS ORDERED: FUROSEMIDE 20 MG TAB PO SCH (10:00)
[2025-06-18 12:00] VITALS: BP 110/69
[2025-06-18 16:00] VITALS: BP 115/74
[2025-06-18 20:00] VITALS: BP 116/85
[2025-06-18] MEDS ORDERED: CARIPRAZINE HCL 1.5 MG CAPSULE PO SCH (21:00)
[2025-06-18] MEDS ORDERED: Mirtazapine 15 MG TAB PO SCH (22:00)
[2025-06-19] VITALS: BP 128/62
[2025-06-19 06:33] LABS: BASO # 0.0 10*3/uL (0.0-0.1); BASO % 0.6 % (0.0-1.0); EOS # 0.1 10*3/uL (0.0-0.4); EOS % 1.1 % (1.0-4.0); MEAN CELL VOLUME 92.7 fl (81.0-99.0); MEAN CORPUSCULAR HGB 29.3 pg (27.0-31.0); MEAN PLATELET VOLUME 9.5 fl (9.6-12.3); MONO # 0.7 10*3/uL (0.1-1.0); MONO % 12.8 % (3.0-9.0); NEUT # 3.3 10*3/uL (2.3-7.9); NEUT % 61.2 % (47.0-73.0); NUCLEATED RED BLOOD CELL 0.0 % (0.0-0.0); NUCLEATED RED BLOOD CELL 0.0 10*3/uL (0.0-0.0); PLATELET COUNT AUTOMATED 311 10*3/uL (130-400); RED CELL DISTRI WIDTH 13.4 % (0-14.5)
[2025-06-19 06:57] LABS: BUN 19 mg/dl (9-23)
[2025-06-19 08:00] VITALS: BP 123/67
[2025-06-19] MEDS ORDERED: RIVASTIGMINE 13.3 MG/24 HR TDM T SCH (10:00)
[2025-06-19 12:00] VITALS: BP 108/56
[2025-06-19] MEDS ORDERED: FLUCONAZOLE 100 MG TAB PO SCH (13:55)
[2025-06-19 16:00] VITALS: BP 100/48
[2025-06-19 20:00] VITALS: BP 114/67
[2025-06-20] VITALS: BP 138/82
[2025-06-20 05:18] LABS: BUN 17 mg/dl (9-23); SGPT/ALT < 7 U/L (5-49)
[2025-06-20 06:12] LABS: BASO # 0.0 10*3/uL (0.0-0.1); BASO % 0.7 % (0.0-1.0); EOS # 0.1 10*3/uL (0.0-0.4); EOS % 2.9 % (1.0-4.0); MEAN CELL VOLUME 91.5 fl (81.0-99.0); MEAN CORPUSCULAR HGB 29.0 pg (27.0-31.0); MEAN PLATELET VOLUME 9.5 fl (9.6-12.3); MONO # 0.6 10*3/uL (0.1-1.0); MONO % 13.8 % (3.0-9.0); NEUT # 2.6 10*3/uL (2.3-7.9); NEUT % 56.0 % (47.0-73.0); NUCLEATED RED BLOOD CELL 0.0 % (0.0-0.0); NUCLEATED RED BLOOD CELL 0.0 10*3/uL (0.0-0.0); PLATELET COUNT AUTOMATED 331 10*3/uL (130-400); RED CELL DISTRI WIDTH 13.2 % (0-14.5)
[2025-06-20 08:00] VITALS: BP 118/58
[2025-06-20] MEDS ORDERED: Rivastigmine Tartrate 4.6 MG/24 HR PATCH T SCH (10:00)
[2025-06-20 12:00] VITALS: BP 92/52
[2025-06-20 16:00] VITALS: BP 96/51
[2025-06-20 20:00] VITALS: BP 96/66
[2025-06-21] VITALS: BP 121/66
[2025-06-21 06:01] LABS: BASO # 0.0 10*3/uL (0.0-0.1); BASO % 0.6 % (0.0-1.0); EOS # 0.1 10*3/uL (0.0-0.4); EOS % 1.9 % (1.0-4.0); MEAN CELL VOLUME 88.5 fl (81.0-99.0); MEAN CORPUSCULAR HGB 29.1 pg (27.0-31.0); MEAN PLATELET VOLUME 9.3 fl (9.6-12.3); MONO # 0.7 10*3/uL (0.1-1.0); MONO % 13.9 % (3.0-9.0); NEUT # 2.7 10*3/uL (2.3-7.9); NEUT % 56.4 % (47.0-73.0); NUCLEATED RED BLOOD CELL 0.0 % (0.0-0.0); NUCLEATED RED BLOOD CELL 0.0 10*3/uL (0.0-0.0); PLATELET COUNT AUTOMATED 323 10*3/uL (130-400); RED CELL DISTRI WIDTH 13.2 % (0-14.5)
[2025-06-21 08:00] VITALS: BP 101/60
[2025-06-21 12:00] VITALS: BP 79/53; BP 80/59
[2025-06-21 16:00] VITALS: BP 80/59
[2025-06-21 20:00] VITALS: BP 116/75
[2025-06-22] VITALS: BP 139/63
[2025-06-22 04:20] LABS: BASO # 0.0 10*3/uL (0.0-0.1); BASO % 0.6 % (0.0-1.0); EOS # 0.1 10*3/uL (0.0-0.4); EOS % 1.7 % (1.0-4.0); MEAN CELL VOLUME 91.3 fl (81.0-99.0); MEAN CORPUSCULAR HGB 29.8 pg (27.0-31.0); MEAN PLATELET VOLUME 8.9 fl (9.6-12.3); MONO # 0.8 10*3/uL (0.1-1.0); MONO % 14.5 % (3.0-9.0); NEUT # 3.2 10*3/uL (2.3-7.9); NEUT % 59.1 % (47.0-73.0); NUCLEATED RED BLOOD CELL 0.0 % (0.0-0.0); NUCLEATED RED BLOOD CELL 0.0 10*3/uL (0.0-0.0); PLATELET COUNT AUTOMATED 327 10*3/uL (130-400); RED CELL DISTRI WIDTH 13.2 % (0-14.5)
[2025-06-22 08:00] VITALS: BP 136/72
[2025-06-22 11:59] VITALS: BP 96/50
[2025-06-22] MEDS ORDERED: FLUCONAZOLE100 MG PO (14:44)
== END 2025-06-22 19:36 | DRG 253 ==
LOC: 4E 02:17
PROVIDERS: Internal Medicine; Student in an Organized Health Care Education/Training Program; ADMIT Student in an Organized Health Care Education/Training Program; ATTEND Student in an Organized Health Care Education/Training Program
DX: K92.2 Gastrointestinal hemorrhage, unspecified (principal); B37.0 Candidal stomatitis; E44.0 Moderate protein-calorie malnutrition; G45.9 Transient cerebral ischemic attack, unspecified; J44.1 Chronic obstructive pulmonary disease with (acute) exacerbation; F25.0 Schizoaffective disorder, bipolar type; J96.11 Chronic respiratory failure with hypoxia; I48.91 Unspecified atrial fibrillation; F32.9 Major depressive disorder, single episode, unspecified; F41.9 Anxiety disorder, unspecified; I50.32 Chronic diastolic (congestive) heart failure; K21.9 Gastro-esophageal reflux disease without esophagitis; N31.9 Neuromuscular dysfunction of bladder, unspecified; E55.9 Vitamin D deficiency, unspecified; J44.9 Chronic obstructive pulmonary disease, unspecified; I48.0 Paroxysmal atrial fibrillation; F48.2 Pseudobulbar affect; G31.09 Other frontotemporal neurocognitive disorder; F02.80 Dementia in other diseases classified elsewhere, unspecified severity, without behavioral disturbance, psychotic disturbance, mood disturbance, and anxiety; Z79.01 Long term (current) use of anticoagulants; Z68.25 Body mass index [BMI] 25.0-25.9, adult